=== PATIENT | female | born 1935 | race Caucasian/White ===

== ENCOUNTER → 2016-12-21 | Outpatient (REF) | payer OTHER ==
[~2016-12-21] MED LIST: /ADVA50050 INH; ACET65TA OR; BISO10TA2 PO; ESTR3TA PO; FLAG500T OR; FLORAGEN PO; HYDR10TA3 OR; HYDR25TA6 PO; PHEN 25 PO; POTA10CA2 PO; SING10TA31 PO; clobetasol TOP; vagifem
== END ==
LOC: M LAB REF 16:54
PROVIDERS: ATTEND Nurse Practitioner Family
DX: R20.2 Paresthesia of skin (principal); D51.9 Vitamin B12 deficiency anemia, unspecified

== ENCOUNTER → 2017-02-28 | Outpatient (REF) | payer OTHER | LOC: M LAB REF 16:48 | PROVIDERS: ATTEND Nurse Practitioner Family | DX: D51.9 Vitamin B12 deficiency anemia, unspecified (principal) ==

== ENCOUNTER → 2017-04-17 | Outpatient (REF) | payer OTHER | LOC: M LAB REF 16:51 | PROVIDERS: ATTEND Nurse Practitioner Family | DX: B35.8 Other dermatophytoses (principal) ==

== ENCOUNTER → 2018-03-07 | Outpatient (REF) | payer OTHER ==
[2018-03-07 13:18] LABS: VITAMIN B12 LEVEL 497 PG/ML (247-911)
== END ==
LOC: M LAB REF 12:06
DX: D51.9 Vitamin B12 deficiency anemia, unspecified (principal)
CPT/HCPCS: 82607

== ENCOUNTER → 2019-06-21 | Outpatient (REF) | payer OTHER ==
[~2019-06-21] MED LIST changes: -/ADVA50050 INH; +ADVA1AER2 INH
== END ==
LOC: M LAB REF 16:56
PROVIDERS: ATTEND Internal Medicine
DX: R26.81 Unsteadiness on feet (principal)

== ENCOUNTER → 2019-10-08 | Outpatient (CLI) | payer MEDICARE | LOC: M SLEEP 19:34 | PROVIDERS: ATTEND Nurse Practitioner Adult Health | DX: G47.30 Sleep apnea, unspecified (principal) ==

== ENCOUNTER → 2019-10-24 | Outpatient (CLI) | payer MEDICARE ==
[~2019-10-24] MED LIST changes: +ISOVUE-370 76% 100ML VIAL (Q9967) As Ordered ONE
--- NOTE | 2019-10-24 08:57 | REP ---
Clinical: Cough and shortness of breath. Technique: Axial contrast enhanced images from the thoracic inlet to the upper abdomen with coronal and sagittal re-formations. 75 ml Isovue 370 intravenous contrast material administered without complication. Findings: The lung dumas are well-aerated and demonstrate age-related interstitial changes along with minimal scattered scarring and mild bronchiectasis. No consolidation or significant nodule. No effusion. No pneumothorax. Evaluation of the mediastinum demonstrates small but mildly prominent pericardial fluid. No cardiomegaly. Atherosclerotic changes to the thoracic aorta and coronary arteries noted without aortic aneurysm or dissection. No significant adenopathy. Musculoskeletal structures demonstrate age-related changes. Limited upper abdomen demonstrates normal bilateral adrenal glands and simple-appearing renal cysts. Impression: 1. The lung dumas demonstrate mild chronic age-related changes and minimal scarring which remains essentially stable when compared to abdominal CT dated 2011. 2. Small though mildly prominent pericardial fluid may warrant further investigation. Electronically Signed by Vega Sandoval MD 10/24/2019 08:49 A
== END ==
LOC: M RAD 08:02
PROVIDERS: ATTEND Internal Medicine
DX: R05 Cough (principal); R06.02 Shortness of breath
CPT/HCPCS: 71260; Q9967

== ENCOUNTER 2019-11-05 07:14 | Emergency (ER) | payer MEDICARE ==
[~2019-11-05] VITALS: Ht 157.5 cm; Wt 75.0 kg
[~2019-11-05 07:14] MED LIST changes: -ISOVUE-370 76% 100ML VIAL (Q9967) As Ordered ONE
[2019-11-05] MEDS ORDERED: ARNU1INH3 (07:35)
[2019-11-05] MEDS ORDERED: BREO1INH3 (07:35)
[2019-11-05] MEDS ORDERED: PRAV20TA2 PO (07:35)
[2019-11-05] MEDS ORDERED: POTA10CA32 (07:35)
[2019-11-05] MEDS ORDERED: MESA400C2 (07:35)
[2019-11-05] MEDS ORDERED: PANT40TA3 (07:35)
[2019-11-05] MEDS ORDERED: PRED10TA2 (07:35)
[2019-11-05] MEDS ORDERED: LEVOTAB10 (07:35)
[2019-11-05] MEDS ORDERED: ALBU8.5H (07:35)
[2019-11-05] MEDS ORDERED: FURO20TA2 (07:35)
[2019-11-05] MEDS ORDERED: VALS40TA9 PO (07:35)
[2019-11-05 07:39] VITALS: BP 167/74
[2019-11-05] MEDS: METOPROLOL 5 MG/5 ML VIAL IV SCH ×3 (07:45→07:55)
[2019-11-05] MEDS ORDERED: METOPROLOL TART 25 MG TABLET PO ONE (08:00)
[2019-11-05 08:02] LABS: BASO % 0.1 % (0.0-1.0); EOS % 0.1 % (0.0-3.0); HEMATOCRIT 34.5 % (36.0-47.0); HEMOGLOBIN 11.2 g/dl (12.0-15.5); LYMPH % 13.4 % (24.0-44.0); MEAN CORPUSCULAR HEMOGLOBIN 28.9 pg (27.0-33.0); MEAN CORPUSCULAR HGB CONC 32.5 g/dl (32.0-36.5); MEAN CORPUSCULAR VOLUME 89.1 fl (80.0-96.0); MONO # 0.5 10^3/uL (0.0-0.8); MONO % 6.9 % (0.0-5.0); NEUTROPHILS # 5.8 10^3/uL (1.5-8.5); NEUTROPHILS % 78.4 % (36.0-66.0); PLATELET COUNT, AUTOMATED 228 10^3/uL (150-450); RED BLOOD COUNT 3.87 10^6/uL (4.00-5.40); WHITE BLOOD COUNT 7.4 10^3/uL (4.0-10.0)
[2019-11-05 08:15] LABS: PROTHROMBIN TIME 12.9 SECONDS (11.8-14.0)
[2019-11-05 08:16] LABS: PARTIAL THROMBOPLASTIN TIME 29.5 SECONDS (25.0-38.4)
[2019-11-05 08:18] LABS: BLOOD UREA NITROGEN 20 MG/DL (7-18); CALCIUM LEVEL 8.4 MG/DL (8.8-10.2); CARBON DIOXIDE LEVEL 27 MEQ/L (21-32); CHLORIDE LEVEL 113 MEQ/L (98-107); CK-MB VALUE MASS 1.9 NG/ML (<3.6); CPK CREATINE PHOSPHOKINASE 77 U/L (26-192); GLOMERULAR FILTRATION RATE > 60.0 (>32); GLUCOSE, FASTING 116 MG/DL (70-100); MB/CK RELATIVE INDEX 2.47 (< OR =4); POTASSIUM SERUM 3.5 MEQ/L (3.5-5.1); SODIUM LEVEL 145 MEQ/L (136-145); TROPONIN I < 0.02 NG/ML (< 0.10)
--- NOTE | 2019-11-05 08:25 | REP ---
Portable chest x-ray: Single view. History: Chest pain. Comparison study: August 04, 2012. Findings: EKG monitoring electrodes overlie the chest. There is a dextroconvex curvature in the thoracic spine unchanged. The heart is mildly enlarged. Pulmonary vasculature is not increased. There is no evidence of pulmonary edema or pleural effusion. There is an old healed rib fracture on the right. Impression: Cardiomegaly. Otherwise no acute disease. Electronically Signed by Marlon Ronquillo MD 11/05/2019 08:16 A
[2019-11-05 09:09] LABS: CK-MB VALUE MASS 2.2 NG/ML (<3.6); MB/CK RELATIVE INDEX 3.01 (< OR =4); TROPONIN I 0.09 NG/ML (< 0.10)
[2019-11-05 11:41] LABS: CK-MB VALUE MASS 2.5 NG/ML (<3.6); MB/CK RELATIVE INDEX 2.94 (< OR =4); TROPONIN I 0.14 NG/ML (< 0.10)
[2019-11-05] MEDS ORDERED: SPIR-10 PO (12:11)
[2019-11-05] MEDS ORDERED: ELIQ5TAB PO (12:11)
[2019-11-05] MEDS ORDERED: DIGO0.253 PO (12:11)
[2019-11-05 12:19] VITALS: BP 148/65
--- NOTE | 2019-11-06 07:53 | ECGEPIP ---
[facility] - ED Test Date: 2019-11-05 Pat Name: HANY PURI Department: Room: - Gender: Female Facing Baster Jumpbasting: darling : 1935 Requested By: Balaji De La O Order Number: [id number] Reading MD: Balaji Cervantes Measurements Intervals [place] Rate: 111 P: [place]: 0 QRS: 13 QRSD: 79 T: 58 QT: 286 QTc: 389 Interpretive Statements ATRIAL FIBRILLATION/FLUTTER WITH RAPID VENTRICULAR RESPONSE MODERATE ST DEPRESSION NO PRIORS FOR COMPARISON Electronically Signed on 11-06-2019 7:52:37 EST by Balaji Cervantes
--- NOTE | 2019-11-06 07:53 | ECGEPIP ---
[facility] - ED Test Date: 2019-11-05 Pat Name: HANY PURI Department: Room: - Gender: Female Weed Cutter: darling : 1935 Requested By: Balaji De La O Order Number: [id number] Reading MD: Balaji Cervantes Measurements Intervals [place] Rate: 65 P: 30 VT: 137 QRS: -9 QRSD: 78 T: 61 QT: 372 QTc: 387 Interpretive Statements SINUS RHYTHM POSSIBLE LEFT ATRIAL ENLARGEMENT RHYTHM/RATE CHANGE COMPARED TO PRIOR ON SAME DATE Electronically Signed on 11-06-2019 7:53:09 EST by Balaji Cervantes
--- NOTE | 2019-11-06 07:55 | ECGEPIP ---
[facility] - ED Test Date: 2019-11-05 Pat Name: HANY PURI Department: Room: - Gender: Female Robotics Specialist: ROBERTA : 1935 Requested By: Balaji De La O Order Number: [id number] Reading MD: Balaji Cervantes Measurements Intervals [place] Rate: 50 P: 41 ME: 140 QRS: -4 QRSD: 85 T: 76 QT: 419 QTc: 384 Interpretive Statements SINUS BRADYCARDIA POSSIBLE LEFT ATRIAL ENLARGEMENT NONSPECIFIC T-WAVE ABNORMALITY SIMILAR TO PRIOR ON SAME DATE Electronically Signed on 11-06-2019 7:55:19 EST by Balaji Cervantes
== END 2019-11-05 12:29 | disposition home or self-care (01) ==
LOC: EDBD 07:14 → M ED 07:14
DX: I48.91 Unspecified atrial fibrillation (principal); I10 Essential (primary) hypertension; J45.909 Unspecified asthma, uncomplicated; E78.5 Hyperlipidemia, unspecified; Z79.899 Other long term (current) drug therapy; Z79.01 Long term (current) use of anticoagulants

== ENCOUNTER → 2019-11-11 | Outpatient (REF) | payer MEDICARE ==
[~2019-11-11] MED LIST changes: +ALBU8.5H; +ARNU1INH3; +BREO1INH3; +DIGO0.253 PO; +ELIQ5TAB PO; +FURO20TA2; +LEVOTAB10; +MESA400C2; +PANT40TA3; +POTA10CA32; +PRAV20TA2 PO; +PRED10TA2; +SPIR-10 PO; +VALS40TA9 PO
== END ==
LOC: M LAB REF 16:18
PROVIDERS: ATTEND Internal Medicine
DX: I50.30 Unspecified diastolic (congestive) heart failure (principal)

== ENCOUNTER → 2019-11-19 | Outpatient (CLI) | payer MEDICARE | LOC: M SLEEP 19:43 | PROVIDERS: ATTEND Nurse Practitioner Adult Health | DX: G47.33 Obstructive sleep apnea (adult) (pediatric) (principal) ==

== ENCOUNTER → 2019-12-26 | Outpatient (REF) | payer MEDICARE | LOC: M LAB REF 16:16 | PROVIDERS: ATTEND Internal Medicine | DX: R06.02 Shortness of breath (principal) ==

== ENCOUNTER → 2020-07-15 | Outpatient (REF) | payer MEDICARE ==
[~2020-07-15] MED LIST changes: +PANT40TA29; -PANT40TA3
[2020-07-15 18:54] LABS: DIGOXIN LEVEL 1.3 NG/ML (0.5-2.0); PERCENT SATURATION 15.9 % (13.2-45.0)
== END ==
LOC: M LAB REF 17:11
PROVIDERS: ATTEND Internal Medicine
DX: I48.91 Unspecified atrial fibrillation (principal); D64.9 Anemia, unspecified; Z79.01 Long term (current) use of anticoagulants

== ENCOUNTER → 2020-10-06 | Outpatient (CLI) | payer MEDICARE ==
--- NOTE | 2020-10-06 10:03 | REP ---
INDICATION: EPIGASTRIC PAIN COMPARISON: None. TECHNIQUE: Real time enrique scale ultrasound examination using curved array transducer. FINDINGS: Liver is normal in contour, size, and echogenicity without focal hepatic lesions identified. Pancreas is incompletely evaluated due to interposed bowel gas. The gallbladder is surgically absent. No biliary ductal dilatation is appreciated and the common bile duct measures 6.0 mm diameter. Right kidney is normal in reniform shape without hydronephrosis and measures 10.7 x 4.9 x 3.8 cm with suggestions for partial duplication to the collecting system. No ascites in the visualized right upper quadrant. IMPRESSION: Essentially normal limited right upper quadrant ultrasound. Cannot exclude partial duplication to the renal collecting system. <Electronically signed by Vega Sandoval > 10/06/20 0990
== END ==
LOC: M RAD 09:23
PROVIDERS: ATTEND Internal Medicine Gastroenterology
DX: R10.13 Epigastric pain (principal)

== ENCOUNTER → 2020-10-07 | Outpatient (CLI) | payer MEDICARE | LOC: M LABSMTC 11:06 | PROVIDERS: ATTEND Anesthesiology | DX: Z01.812 Encounter for preprocedural laboratory examination (principal); Z20.822 Contact with and (suspected) exposure to COVID-19 ==

== ENCOUNTER 2020-10-12 07:48 | Day surgery (SDC) | payer MEDICARE ==
[~2020-10-12] VITALS: Ht 160 cm; Wt 64.8 kg
[~2020-10-12 07:48] MED LIST changes: +LIDOCAINE 2% 100MG/5ML SDV (FOR ANES.) As Ordered ONE; +NS 1,000 ML IV ONE; +propofoL 200 MG/20 ML VIAL As Ordered ONE
--- OUTSIDE RECORDS SUMMARY | 2020-10-12 07:52 | CCD | Continuity of Care Document ---
Author Author Hawa BAILEY M.D. Organization Unknown Address [address] [place] [address] Phone [phone] Care Team Providers Care Commercial Leasing Agent Name Role Phone Nirmala Ho DO AUTM [phone] Problems Active Problems Provider Date Abdominal pain Reed Bailey M.D. Onset: 09/24/19 21 Social History Type Date Description Comments Sex Unknown ETOH Use Denies alcohol use Tobacco Use Start: Unknown Patient has never smoked Allergies, Adverse Reactions, Alerts Description No Known Drug Allergies Medications Active Medications SIG Qnty Indications Ordering Provide r Date Digox 125mcg Tablets Unknown Eliquis 5mg Tablets Unknown Spironolactone 25mg Tablets Unknown Furosemide 20mg Tablets Unknown Pravastatin Sodium 20mg Tablets Unknown Losartan Potassium 50mg Tablets Unknown Mesalamine 400mg Capsules DR 2 caps by mouth three times a day Unknown 00 Levothyroxine Sodium 50mcg Capsules Unknown Pantoprazole Sodium 40mg Tablets DR Unknown Sucralfate 1gm Tablets Unknown Vitamin D 50mcg (2000 Ut) Capsules Unknown Immunizations Description No Information Available Vital Signs Date Vital Result Comment 09/24/2020 10:57am Height 63 inches 5'3" Weight 144.00 lb BP Systolic 130 mmHg BP Diastolic 70 mmHg Heart Rate 64 /min BMI (Body Mass Index) 25.5 kg/m2 Weight 65.318 kg Body Temperature 97.0 F Results Description No Information Available Procedures Description No Information Available Medical Devices Description No Information Available Encounters Type Date Location Provider Dx Diagnosis Office Visit 09/24/2020 11:00a Main Office Reed Bailey M.D. R 10.13 Epigastric pain Assessments Date Code Description Provider 09/24/2020 R10.13 Epigastric pain Reed gutierrez M.D. Plan of Treatment Future Appointment(s):* 10/05/2020 6:15 am - Tiffany-Kalyani at Main Office * 10/12/2020 8:45 am - Reed Bailey M.D. at Main Office 09/24/2020 - Reed Bailey M.D.* R10.13 Epigastric pain* New Xrays:* Ultrasound of the Liver, Ordered: 09/24/20 * Comments:* 85 yo wf who presents for a h/o upper abdominal band-like pain. She has had it for 3 months. She denies postprandial relationships. Pain is in the afternoon. Lasts for 2 to 3 hours. Ugi showed doudenal inflammation. She feels current treatment has improved her symptoms by 30%. No weight loss. Gallbladder out in 1997.Plan:1. Egd + liver us to r/o cbd dilatation.2. Maintain meds.3. Liver us to r/o cbd stones.4. Need recent labs from Primary. Functional Status Description No Information Available Mental Status Description No Information Available Referrals Description No Information Available
--- OUTSIDE RECORDS SUMMARY | 2020-10-12 07:52 | CCD | Continuity of Care Document ---
Author Author Hawa BAILEY M.D. Organization Unknown Address [address] [place] [address] Phone [phone] Care Team Providers Care Vending Machine Refiller Name Role Phone Nirmala Ho DO AUTM [phone] Problems Active Problems Provider Date Abdominal pain [...] Medical Devices Description No Information Available Encounters Description No Information Available Assessments Date Code Description Provider 09/24/2020 R10.13 Epigastric pain Reed gutierrez M.D. Plan of Treatment Future Appointment(s):* 10/12/2020 8:45 am - Reed Bailey M.D. [...]
--- OUTSIDE RECORDS SUMMARY | 2020-10-12 07:53 | CCD | Continuity of Care Document ---
Author Author Hawa SADLER Organization Unknown Address [address] [address] Phone [phone] Care Team Providers Care Senior Maintenance Machinist Name Role Phone Nirmala Sadler Unavailable Problems Active Problems Provider Date Essential hypertension Amanda Ba D.O. Onset: Asthma without status asthmaticus Phu Richard MD Onse t: 07/11/2012 Anemia Amanda Ba D.O. Onset: 2011 Menopausal and postmenopausal disorders Amanda Ba D.O. Onset: 07/11/2012 Pure hypercholesterolemia Amanda Ba D.O. Onset: 07/11/2012 Social History Type Date Description Comments Sex Unknown ETOH Use Denies alcohol use Tobacco Use Start: Unknown End: Unknown Patient is a former smoker SMOKED FOR 40 YRS 1 PACK A DAY Allergies, Adverse Reactions, Alerts Description No Known Drug Allergies Medications Active Medications SIG Qnty Indications Ordering Provide r Date Carafate 1gm Tablets one tablet daily before meals for 8 weeks 180tabs Nirmala Sadler DO 020 Melatonin 10mg Tablets 1 every night at bedtime as needed 30tabs Nirmala Sadler DO 07/15/2020 3 Day Vaginal 2% Cream use as needed once to twice a week. 21gm Nirmala Sadler DO 07/15/2020 Furosemide 20mg Tablets 1 by mouth every day 90tabs Nirmala SadlerDO 02/11/2020 Losartan Potassium 50mg Tablets 1 by mouth every day 90tabs Nirmala SadlerDO 12/02/2019 Digoxin 125mcg Tablets 1 by mouth every day 90tabs Nirmala Sadler,DO 11/12/2019 Breo Ellipta 200-25mcg/Inh Aerosol one inhalation daily 28units Nirmala Sadler DO 10/29/2019 Pantoprazole Sodium 40mg Tablets D R 1 by mouth by mouth twice a day 60tabs Nirmala Sadler DO 10/15 Levocetirizine Dihydrochloride 5mg Tablets take one tablet by mouthonce a day in am 90tabs Nirmala Sadler DO 10/01/[address] Take One Capsule By Mouth Every Day 180capstar Richard MD 03/18/2019 Shingrix 50mcg/0.5ML Suspension Re c administer 0.5 milliliters intramuscular, [facility] 2 [facility] DO 03/18/2019 Vitamin D-400 400Unit Tablets 1 by mouth every day FATOU Vogt 08/31/2017 Clotrimazole Anti-Fungal 1% Cream apply twice daily to navel 14.170gm B35.8 FATOU Vogt 7 Ventolin HFA 108(90Base) mcg/Act A erosol 2 puffs four times a day as needed 1units Nirmala Sadler DO 10/20/2015 Pravastatin Sodium 20mg Tablets take one tablet by mouth every day 90tabs Nirmala Sadler DO 2011 Eliquis 5mg Tablets take one tablet by mouth twice a day 180tabs Nirmala Sadler DO Spironolactone 25mg Tablets 1 by mouth every day 90tabs Nirmala Sadler DO History Medications Vagifem 10mcg Tablets insert vaginal 2 times weekly 24tabs Nirmala Sadler DO 07/15/2020 - 12/2019 Medications Administered in Office Medication SIG Qnty Indications Ordering Provider Date Administration Of Flu Vaccine Inj traciion Nirmala Sadler DO 05/29/2020 Administration Of Flu Vaccine Inj traciion Nirmala Sadler DO 06/21/2019 Depo-Medrol Injection Injection FATOU Vogt 07/26/2017 Administration Of Flu Vaccine Inj ection ALBERTO VogtP 07/26/2017 Depo-Medrol Injection Injection Amanda Ba D.O. 06/28/2016 Administration Of Flu Vaccine Inj ection Jennifer Nelson.O. 06/28 Administration Of Flu Vaccine Inj ection Jennifer Nelson.O. 07/21 Administration Of Flu Vaccine Inj ection Aura Rogers, [facility] 06/12/2014 Depo-Medrol Injection Injection Jennifer Nelson.O. 05/05/2014 Administration Of Flu Vaccine Inj ection Jennifer Nelson.O. 07/11 Administration Of Flu Vaccine Inj ection Aura Rogers, ANP 05/31/2011 Administration Of Flu Vaccine Inj ection Aura Rogers, ANP 06/17/2010 Administration Of Flu Vaccine Inj ection Jennifer Nelson.O. 06/17 Administration Of Flu Vaccine Inj ection Aura Rogers, ANP 06/10/2008 Administration Of Flu Vaccine Inj ection Jennifer Nelson.O. 07/12 Administration Of Flu Vaccine Inj ection Jennifer Nelson.O. 06/15 Administration Of Flu Vaccine Inj ection Jennifer Nelson.O. 06/28 Administration Of Flu Vaccine Inj ection Jennifer Nelson.O. 07/07 Administration Of Flu Vaccine Inj ection Jennifer Nelson.O. 07/16 Depo-Medrol Injection Injection Jennifer Nelson.O. 06/16/2003 Depo-Medrol Injection Injection Jennifer Nelson.O. 03/21/2003 Administration Of Flu Vaccine Inj ectJennifer Pino.O. 07/05 Administration Of Flu Vaccine Inj ection Phu Richard MD 08/23/2001 Administration Of Flu Vaccine Inj ection Jennifer Nelson.O. 09/06 Immunizations CPT Code Status Date Vaccine Lot # 99229 Given 05/29/2020 Influenza Vaccin e Quadrivalent Preser/Antibiotic Free Im Use [id number] 89735 Given 07/04/2019 Shingrix Zoster Vaccine (HZV), Recombinant, Subunit, Adjuvanted 34471 Given 06/21/2019 Influenza Vaccin e Quadrivalent Preser/Antibiotic Free Im Use [id number] 61239 Given 03/27/2019 Shingrix U-Flu Given 07/04/2018 Influenza,Unspecified 99200 Given 07/26/2017 Influenza Vaccin e Quadrivalent Preser/Antibiotic Free Im Use 315190 79027 Given 02/28/2017 Tetanus/Diptheria(Td)Toxoids Preservative Free [id number] U-PneuC Given 06/28/2016 Prevnar 13 Q2037 Given 06/28/2016 Fluvirin Virus Vaccine 82796 01 Q2037 Given 07/21/2015 Fluvirin Virus Vaccine 06734 01 Q2037 Given 06/12/2014 Fluvirin Virus Vaccine Q2037 Given 07/11/2012 Fluvirin Virus Vaccine 59711 01 Q2037 Given 05/31/2011 Fluvirin Virus Vaccine 55283 Given 06/17/2010 Influenza Virus Vaccine 00999 Given 06/17/2009 Influenza Virus Vaccine 56640 Given 06/10/2008 Influenza Virus Vaccine 53043 Given 07/12/2007 Influenza Virus Vaccine 87323 Given 01/09/2007 Pneumovax 23 07040 Given 06/15/2006 Influenza Virus Vaccine 41739 Given 06/28/2005 Influenza Virus Vaccine 86578 Given 07/07/2004 Influenza Virus Vaccine 39416 Given 07/16/2003 Influenza Virus Vaccine 11734 Given 07/05/2002 Influenza Virus Vaccine 21010 Given 08/23/2001 Influenza Virus Vaccine 30793 Given 09/06/2000 Influenza Virus Vaccine 45536 Refused 03/07/2018 Zoster Vaccine Vital Signs Date Vital Result Comment 07/15/2020 10:43am BP Systolic 114 mmHg BP Diastolic 54 mmHg Heart Rate 72 /min Height 62.5 inches 5'2.50" Weight 147.12 lb O2 % BldC Oximetry 96 % RM Air BMI (Body Mass Index) 26.5 kg/m2 02/11/2020 2:40pm BP Systolic 108 mmHg BP Diastolic 56 mmHg Heart Rate 80 /min Height 62.5 inches 5'2.50" Weight 157.00 lb O2 % BldC Oximetry 94 % RM Air BMI (Body Mass Index) 28.3 kg/m2 Results Test Acquired Date Facility Test Result H/L Range Note Laboratory test finding 07/15/2020 [facility] [address] [place], [place] [id number] [phone] Digoxin Level 1.3 NG/ML Normal 0.5-2.0 Total Iron Binding Capacit 07/15/[address] [address] [phone] Iron (Fe) 54 g/dL Normal 50-170 Total Iron Binding Capacity 340 g/dL Normal 250-450 Percent Saturation 15.9 % Normal 13.2-45.0 Laboratory test finding 07/15/2020 [facility] [address] [place] [address] [phone] Ferritin 86 NG/ML Normal 8-252 Complete Blood Count 07/15/2020 [facility] [employer] ilir graves Shaper Machine Hand: [place] [address] [phone] WBC 8.0 x10*3/UL 4.1 - 10.9 RBC 4.51 x10*6/UL 4.20 - 6.30 Hemoglobin 12.6 g/dL 12.0 - 18.0 Hematocrit 37.3 % 37.0 - 51.0 MCV 82.8 fL 80.0 - 97.0 MCH 27.9 pg 26.0 - 32.0 MCHC 33.8 g/dL 31.0 - 38.0 RDW 13.7 % 11.6 - 13.7 PLT 145 x10*3/UL 140 - 440 MPV 9.4 FL 7.8 - 11.0 Lymph % 16.0 % 10.0 - 58.5 Mid % 4.0 % 1.7 - 9.3 Neut % 80.0 % 37.0 - 92.0 Lymph # 1.2 x10*3/UL 0.6 - 4.1 Mid # 0.4 x10*3/UL 0.1 - 0.6 Neut # 6.4 x10*3/UL 2.0 - 7.8 Comprehensive Chem Profile 07/15/2020 [facility] [employer] [employer] Shaper Machine Hand: [place] [address] [phone] Glucose 108 mg/dL High 74 - 99 1 BUN 14 mg/dL 7 - 18 Creatinine 0.9 mg/dL 0.6 - 1.3 Sodium 142 mEq/L 136 - 145 Potassium 3.8 mEq/L 3.5 - 5.1 Chloride 103 mEq/L 98 - 107 Carbon Dioxide 30 mEq/L 21 - 32 Calcium 9.1 mg/dL 8.5 - 10.1 Alk. Phosphatase 90 mg/dL 46 - 116 Total Bilirubin 0.7 mg/dL 0.2 - 1.0 Ast (Sgot) 13 U/L Low 15 - 37 Alt (SGPT) 13 U/L 12 - 78 Albumin 3.7 g/dL 3.4 - 5.0 Total Protein 8.0 g/dL 6.4 - 8.2 A/G Ratio 0.86 CALC Low 1.00 - 1.90 GFR 59 mL/min Low >60 GFR >= 60 mL/min >60 2 Lipid Profile 07/15/2020 [facility] Shaper Machine Hand: Dr Phu [place] [id number] [phone] Cholesterol 219 mg/dL High 131 - 200 Triglycerides 150 mg/dL 30 - 150 HDL Cholesterol 48 mg/dL 35 - 60 LDL (Calculated) 141 CALC 50 - 159 Laboratory test finding 07/15/2020 [facility] [employer], Shaper Machine Hand: [place] [address] [phone] Thyroid Stimulating Hormone 3.87 uIU/mL High 0.3 6 - 3.74 Laboratory test finding 07/15/2020 [facility] [employer] isnaty, Shaper Machine Hand: Dr [place] [address] [phone] T4 Free 0.95 ng/dL 0.76 - 1.46 Basic Metabolic Panel 02/11/2020 [facility] Shaper Machine Hand: Dr [place] [address] [phone] Glucose 137 mg/dL High 74 - 99 3 BUN 12 mg/dL 7 - 18 Creatinine 1.1 mg/dL 0.6 - 1.3 Sodium 143 mEq/L 136 - 145 Potassium 3.5 mEq/L 3.5 - 5.1 Chloride 105 mEq/L 98 - 107 Carbon Dioxide 29 mEq/L 21 - 32 Calcium 8.1 mg/dL Low 8.5 - 10.1 GFR 47 mL/min Low >60 GFR 57 mL/min Low >60 4 1 100-125 mg/dL PRE-DIABET ES/FASTING >126 mg/dL DIABETES/FASTING 2 CHRONIC KIDNEY DISEASE STAGI NG PER NKF STAGE I & II GFR >= 60 NORMAL TO MILDLY DECREASED STAGE III GFR 30-59 MODERATELY DECREASED STAGE IV GFR 15-29 SEVERELY DECREASED STAGE V GFR <15 VERY LITTLE GFR LEFT ESRD GFR <15 ON SENIOR PACKAGING ENGINEER 3 100-125 mg/dL PRE-DIABET ES/FASTING >126 mg/dL DIABETES/FASTING 4 CHRONIC KIDNEY DISEASE STAGI NG PER NKF STAGE I & II GFR >= 60 NORMAL TO MILDLY DECREASED STAGE III GFR 30-59 MODERATELY DECREASED STAGE IV GFR 15-29 SEVERELY DECREASED STAGE V GFR <15 VERY LITTLE GFR LEFT ESRD GFR <15 ON SENIOR PACKAGING ENGINEER Procedures Date Code Description Status 03/08/2016 [id number] Bone Mineral Density Test Comple rama 03/08/2016 [id number] Mammogram Completed 02/25/2015 [id number] Mammogram Completed 10/30/2013 [id number] Mammogram Completed 08/23/2012 [id number] Colonoscopy Completed 08/01/2012 [id number] Mammogram Completed 05/25/2011 [id number] Diabetic Retinal Eye Exam Comple rama 12/01/2010 [id number] Bone Mineral Density Test Comple rama 07/12/2007 [id number] Bone Mineral Density Test Comple rama 09/15/2004 [id number] Colonoscopy Completed Medical Devices Description No Information Available Encounters Type Date Location Provider Dx Diagnosis Office Visit 02/11/2020 2:45p [facility] Nirmala Sadler DO J45.40 Moderate persistent asthma, uncomplicated I48.91 Unspecified atrial fibrillat ion G47.33 Obstructive sleep apnea (tasha lt) (pediatric) E78.5 Hyperlipidemia, unspecified J30.9 Allergic rhinitis, unspecifi ed I50.32 Chronic diastolic (congestiv e) heart failure Assessments Date Code Description Provider 07/15/2020 R10.13 Epigastric pain Nirmala Sadler DO 07/15/2020 I48.91 Unspecified atrial fibrillation Nirmala Sadler DO 07/15/2020 J45.40 Moderate persistent asthma, unco mplicated Nirmala Sadler DO 07/15/2020 G47.33 Obstructive sleep apnea (adult) (pediatric) Nirmala Sadler DO 07/15/2020 I50.32 Chronic diastolic (congestive) h eart failure Nirmala Sadler DO 07/15/2020 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 Nirmala Sadler, 07/15/2020 K21.9 Gastro-esophageal reflux disease without esophagitis Nirmala Sadler DO 05/29/2020 Z23 Encounter for immunization Nirmala Sadler,DO 05/29/2020 Z23 Encounter for immunization Nurse Schedule 02/11/2020 J45.40 Moderate persistent asthma, unco mplicated Nirmala Sadler,DO 02/11/2020 I48.91 Unspecified atrial fibrillation Nirmala Sadler,DO 02/11/2020 G47.33 Obstructive sleep apnea (adult) (pediatric) Nirmala Sadler,DO 02/11/2020 E78.5 Hyperlipidemia, unspecified Jerry Sadler,DO 02/11/2020 J30.9 Allergic rhinitis, unspecified L harrison Sadler,DO 02/11/2020 I50.32 Chronic diastolic (congestive) h eart failure Nirmala Sadler DO Plan of Treatment Future Appointment(s):* 09/01/2020 2:45 pm - Nirmala Sadler DO at [facility] 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 * Vagifem 10 mcg - insert vaginal 2 times weekly Functional Status Description No Information Available Mental Status Description No Information Available Referrals Description No Information Available
--- OUTSIDE RECORDS SUMMARY | 2020-10-12 07:53 | CCD | Continuity of Care Document ---
Author Author Hawa SADLER Organization Unknown Address [address] [address] Phone [phone] Care Team Providers Care Burial Vault Deliverer And Installer Name Role Phone Nirmala Sadler Unavailable Problems [...] [facility], [facility] Nirmala Sadler DO 03/18/2019 Vitamin D-400 [...] Of Flu Vaccine Inj ection Aura Rogers, [facility] 06/12/2014 Depo-Medrol Injection Injection Jennifer [...] CPT Code Status Date Vaccine Lot # 61107 Given 05/29/2020 Influenza Vaccin e Quadrivalent Preser/Antibiotic Free Im Use [id number] 74318 Given 07/04/2019 Shingrix Zoster Vaccine (HZV), Recombinant, Subunit, Adjuvanted 18580 Given 06/21/2019 Influenza Vaccin e Quadrivalent Preser/Antibiotic Free Im Use 101060 92366 Given 03/27/2019 Shingrix U-Flu Given 07/04/2018 Influenza,Unspecified 85379 Given 07/26/2017 Influenza Vaccin e Quadrivalent Preser/Antibiotic Free Im Use [id number] 52127 Given 02/28/2017 Tetanus/Diptheria(Td)Toxoids Preservative Free a097a U-PneuC Given 06/28/2016 Prevnar 13 Q2037 Given 06/28/2016 Fluvirin Virus Vaccine 14505 01 Q2037 Given 07/21/2015 Fluvirin Virus Vaccine 28108 01 Q2037 Given 06/12/2014 Fluvirin Virus Vaccine Q2037 Given 07/11/2012 Fluvirin Virus Vaccine 15201 01 Q2037 Given 05/31/2011 Fluvirin Virus Vaccine 24032 Given 06/17/2010 Influenza Virus Vaccine 00380 Given 06/17/2009 Influenza Virus Vaccine 65366 Given 06/10/2008 Influenza Virus Vaccine 72195 Given 07/12/2007 Influenza Virus Vaccine 74392 Given 01/09/2007 Pneumovax 23 37157 Given 06/15/2006 Influenza Virus Vaccine 73641 Given 06/28/2005 Influenza Virus Vaccine 34765 Given 07/07/2004 Influenza Virus Vaccine 83091 Given 07/16/2003 Influenza Virus Vaccine 47979 Given 07/05/2002 Influenza Virus Vaccine 97236 Given 08/23/2001 Influenza Virus Vaccine 03570 Given 09/06/2000 Influenza Virus Vaccine 62877 Refused 03/07/2018 Zoster Vaccine Vital Signs Date [...] H/L Range Note Laboratory test finding 07/15/2020 [facility] [address] [place], [place] [id number] [phone] Digoxin Level <pending> Laboratory test finding 07/15/2020 [facility] [address] [place], [place] [address] [phone] Ferritin <pending> Laboratory test finding 07/15/2020 [facility] Airport Operations Specialist: [place] [address] [phone] TSH <pending> Basic Metabolic Panel 02/11/2020 [facility] Airport Operations Specialist: [place] [address] [phone] Glucose 137 mg/dL High 74 - 99 1 BUN 12 mg/dL 7 - 18 Creatinine 1.1 mg/dL 0.6 - 1.3 Sodium 143 mEq/L 136 - 145 Potassium 3.5 mEq/L 3.5 - 5.1 Chloride 105 mEq/L 98 - 107 Carbon Dioxide 29 mEq/L 21 - 32 Calcium 8.1 mg/dL Low 8.5 - 10.1 GFR 47 mL/min Low >60 GFR 57 mL/min Low >60 2 1 100-125 mg/dL PRE-DIABET ES/FASTING >126 mg/dL DIABETES/FASTING 2 CHRONIC KIDNEY DISEASE STAGI NG PER NKF STAGE I & II GFR >= 60 NORMAL TO MILDLY DECREASED STAGE III GFR 30-59 MODERATELY DECREASED STAGE IV GFR 15-29 SEVERELY DECREASED STAGE V GFR <15 VERY LITTLE GFR LEFT ESRD GFR <15 ON GLASS NOVELTY MAKER Procedures Date Code Description Status 03/08/2016 [id number] Bone Mineral Density Test [facility] 03/08/2016 [id number] Mammogram Completed 02/25/2015 [id number] Mammogram Completed 10/30/2013 [id number] Mammogram Completed 08/23/2012 [id number] Colonoscopy Completed 08/01/2012 [id number] Mammogram Completed 05/25/2011 [id number] Diabetic Retinal Eye Exam [facility] 12/01/2010 [id number] Bone Mineral Density Test [facility] 07/12/2007 [id number] Bone Mineral Density Test [facility] 09/15/2004 [id number] Colonoscopy Completed Medical Devices Description No Information Available Encounters Type Date Location Provider Dx Diagnosis Office Visit 02/11/2020 2:45p [facility] Nirmala Sadler DO J45.40 Moderate persistent asthma, uncomplicated I48.91 Unspecified atrial fibrillat ion G47.33 Obstructive sleep apnea (tasha lt) (pediatric) E78.5 Hyperlipidemia, unspecified J30.9 Allergic rhinitis, unspecifi ed I50.32 Chronic diastolic (congestiv e) heart failure Assessments Date Code Description Provider 05/29/2020 Z23 Encounter for immunization Nirmala Sadler DO 05/29/2020 Z23 Encounter for immunization Nurse Schedule 02/11/2020 J45.40 Moderate persistent asthma, unco mplicated Nirmala Sadler DO 02/11/2020 I48.91 Unspecified atrial fibrillation Nirmala Sadler DO 02/11/2020 G47.33 Obstructive sleep apnea (adult) (pediatric) Nirmala Sadler DO 02/11/2020 E78.5 Hyperlipidemia, unspecified Jerry Sadler DO 02/11/2020 J30.9 Allergic rhinitis, unspecified L harrison Sadler DO 02/11/2020 I50.32 Chronic diastolic (congestive) h eart failure Nirmala Sadler DO Plan of Treatment 07/15/2020 - Nirmala Sadler DO* All * New Medication:* Carafate 1 gm [...]
--- OUTSIDE RECORDS SUMMARY | 2020-10-12 07:53 | CCD | Continuity of Care Document ---
Author Author Hawa SADLER Organization Unknown Address [address] [address] Phone [phone] Care Team Providers Care Aeronautics Teacher Name Role Phone Nirmala Sadler Unavailable Problems [...] SIG Qnty Indications Ordering Provide r Date Montelukast Sodium 10mg Tablets Take One Tablet By Mouth AT Bedtime 90tabs Nirmala Sadler,DO 07/20 Carafate 1gm Tablets one tablet daily before meals for 8 weeks 180tabs Nirmala Sadler,DO 020 Melatonin 10mg Tablets 1 every night at bedtime as needed 30tabs Nirmala Sadler,DO 07/15/2020 3 Day Vaginal 2% Cream use as needed once to twice a week. 21gm Nirmala Sadler,DO 07/15/2020 Furosemide 20mg Tablets 1 by mouth every day 90tabs Nirmala Sadler,DO 02/11/2020 Losartan Potassium 50mg Tablets 1 by mouth every day 90tabs Nirmala Sadler,DO 12/02/2019 Digoxin 125mcg Tablets 1 by mouth every day 90tabs Nirmala Sadler,DO 11/12/2019 Breo Ellipta 200-25mcg/Inh Aerosol one inhalation daily 28units Nirmala Sadler,DO 10/29/2019 Pantoprazole Sodium 40mg Tablets D R 1 by mouth by mouth twice a day 60tabs Nirmala Sadler,DO 10/15 Levocetirizine Dihydrochloride 5mg Tablets take one tablet by mouthonce a day in am 90tabs Nirmala Sadler,DO 10/01/2019 Shingrix 50mcg/0.5ML Suspension Re c administer 0.5 milliliters intramuscular, [facility] DO 03/18/[address] Take One Capsule By Mouth Every Day 180caps Phu Richard MD 03/18/2019 Vitamin D-400 400Unit Tablets 1 by mouth every day FATOU Vogt 08/31/2017 Clotrimazole Anti-Fungal 1% Cream apply twice daily to navel 14.170gm B35.8 Edward Medrano, [facility] 7 Ventolin HFA 108(90Base) mcg/Act A erosol 2 puffs four times a day as needed 1units Nirmala Sadler, 10/20/2015 Pravastatin Sodium 20mg Tablets take one tablet by mouth every day 90tabs Nirmala Sadler,DO 2011 Eliquis 5mg Tablets take one tablet by mouth twice a day 180tabs Nirmala Sadler,DO Spironolactone 25mg Tablets 1 by mouth every day 90tabs Nirmala Sadler,DO History Medications Vagifem 10mcg Tablets insert vaginal 2 times weekly 24tabs Nirmala Sadler DO 07/15/2020 - 12/2019 Medications Administered in Office Medication SIG Qnty Indications Ordering Provider Date Administration Of Flu Vaccine Inj ection Nirmala Sadler, 05/29/2020 Administration Of Flu Vaccine Inj ection Nirmala Sadler DO 06/21/2019 Depo-Medrol Injection Injection ALBERTO VogtP 07/26/2017 Administration Of Flu Vaccine Inj ection FATOU Vogt 07/26/2017 Depo-Medrol Injection Injection Jennifer Nelson.O. 06/28/2016 Administration Of Flu Vaccine Inj ection Jennifer Nelson.O. 06/28 Administration Of Flu Vaccine Inj ection Jennifer Nelson.O. 07/21 Administration Of Flu Vaccine Inj ection Aura Rogers, ANP 06/12/2014 Depo-Medrol Injection Injection Jennifer Nelson.O. 05/05/2014 [...] Nelson.O. 03/21/2003 Administration Of Flu Vaccine Inj ection Jennifer Nelson.O. 07/05 Administration Of Flu Vaccine Inj traciion Phu Richard MD 08/23/2001 Administration Of Flu Vaccine Inj ection Jennifer Nelson.O. 09/06 Immunizations CPT Code Status Date Vaccine Lot # 90303 Given 05/29/2020 Influenza Vaccin e Quadrivalent Preser/Antibiotic Free Im Use [id number] 83199 Given 07/04/2019 Shingrix Zoster Vaccine (HZV), Recombinant, Subunit, Adjuvanted 31910 Given 06/21/2019 Influenza Vaccin e Quadrivalent Preser/Antibiotic Free Im Use [id number] 10803 Given 03/27/2019 Shingrix U-Flu Given 07/04/2018 Influenza,Unspecified 07436 Given 07/26/2017 Influenza Vaccin e Quadrivalent Preser/Antibiotic Free Im Use 502138 70537 Given 02/28/2017 Tetanus/Diptheria(Td)Toxoids Preservative Free a097a U-PneuC Given 06/28/2016 Prevnar 13 Q2037 Given 06/28/2016 Fluvirin Virus Vaccine 70705 01 Q2037 Given 07/21/2015 Fluvirin Virus Vaccine 21795 01 Q2037 Given 06/12/2014 Fluvirin Virus Vaccine Q2037 Given 07/11/2012 Fluvirin Virus Vaccine 31278 01 Q2037 Given 05/31/2011 Fluvirin Virus Vaccine 86121 Given 06/17/2010 Influenza Virus Vaccine 60600 Given 06/17/2009 Influenza Virus Vaccine 66426 Given 06/10/2008 Influenza Virus Vaccine 97953 Given 07/12/2007 Influenza Virus Vaccine 34125 Given 01/09/2007 Pneumovax 23 82726 Given 06/15/2006 Influenza Virus Vaccine 80139 Given 06/28/2005 Influenza Virus Vaccine 42417 Given 07/07/2004 Influenza Virus Vaccine 90865 Given 07/16/2003 Influenza Virus Vaccine 00579 Given 07/05/2002 Influenza Virus Vaccine 76908 Given 08/23/2001 Influenza Virus Vaccine 54790 Given 09/06/2000 Influenza Virus Vaccine 72069 Refused 03/07/2018 Zoster Vaccine Vital Signs Date [...] H/L Range Note Laboratory test finding 07/15/2020 [facility] [address] [place] [address] [phone] Digoxin Level 1.3 NG/ML Normal 0.5-2.0 Total Iron Binding Capacit 07/15/2020 [facility] [address] [place] [address] [phone] Iron (Fe) 54 g/dL Normal 50-170 Total Iron Binding Capacity 340 g/dL Normal 250-450 Percent Saturation 15.9 % Normal 13.2-45.0 Laboratory test finding 07/15/2020 [facility] [address] [place] [address] [phone] Ferritin 86 NG/ML Normal 8-252 Complete Blood Count 07/15/2020 [facility] [employer] ilir graves Dermatology Nurse: [place] [address] [phone] WBC 8.0 x10*3/UL 4.1 - 10.9 RBC [...] 2.0 - 7.8 Comprehensive Chem Profile 07/15/2020 [facility] Mondragon Dermatology Nurse: [place] [address] [phone] Glucose 108 mg/dL High 74 - 99 [...] 60 mL/min >60 2 Lipid Profile 07/15/2020 [facility] Dermatology Nurse: Dr [place] [id number] [phone] Cholesterol 219 mg/dL High 131 - 200 Triglycerides 150 mg/dL 30 - 150 HDL Cholesterol 48 mg/dL 35 - 60 LDL (Calculated) 141 CALC 50 - 159 Laboratory test finding 07/15/2020 [facility] [employer] ilir chaudhry Dermatology Nurse: Dr Phu Moran [facility]18 [phone] Thyroid Stimulating Hormone 3.87 uIU/mL High 0.3 6 - 3.74 Laboratory test finding 07/15/2020 [facility] [employer] ilir chaudhry Dermatology Nurse: Dr Phu Moran [place] [address] [phone] T4 Free 0.95 ng/dL 0.76 - 1.46 Basic Metabolic Panel 02/11/2020 [facility] D[facility]at[facility] Nurse: Dr Phu Moran [facility]28 [phone] Glucose 137 mg/dL High 74 - 99 [...] GFR LEFT ESRD GFR <15 ON SENIOR INFORMATION SECURITY CONSULTANT 3 100-125 mg/dL PRE-DIABET ES/FASTING >126 mg/dL DIABETES/FASTING 4 CHRONIC KIDNEY DISEASE STAGI NG PER NKF STAGE I & II GFR >= 60 NORMAL TO MILDLY DECREASED STAGE III GFR 30-59 MODERATELY DECREASED STAGE IV GFR 15-29 SEVERELY DECREASED STAGE V GFR <15 VERY LITTLE GFR LEFT ESRD GFR <15 ON SENIOR INFORMATION SECURITY CONSULTANT Procedures Date Code Description Status 03/08/2016 [id number] Bone Mineral Density Test [facility] 03/08/2016 [id number] Mammogram Completed 02/25/2015 [id number] Mammogram Completed 10/30/2013 [id number] Mammogram Completed 08/23/2012 [id number] Colonoscopy Completed 08/01/2012 [id number] Mammogram Completed 05/25/2011 [id number] Diabetic Retinal Eye Exam [facility] 12/01/2010 [id number] Bone Mineral Density Test [facility] 07/12/2007 [id number] Bone Mineral Density Test [facility] 09/15/2004 [id number] Colonoscopy Completed Medical Devices Description No Information Available Encounters Type Date Location Provider Dx Diagnosis Office Visit 07/15/2020 11:00a [facility] PJm Sadler DO R10.13 Epigastric pain I48.91 Unspecified atrial fibrillat ion J45.40 Moderate persistent asthma, uncomplicated G47.33 Obstructive sleep apnea (tasha lt) (pediatric) I50.32 Chronic diastolic (congestiv e) heart failure 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 K21.9 Gastro-esophageal reflux dis ease without esophagitis Z13.89 Encounter for screening for other disorder E78.5 Hyperlipidemia, unspecified Office Visit 02/11/2020 2:45p [facility] PJm Sadler DO J45.40 Moderate persistent asthma, uncomplicated I48.91 Unspecified atrial fibrillat ion G47.33 Obstructive sleep apnea (tasha lt) (pediatric) E78.5 Hyperlipidemia, unspecified J30.9 Allergic rhinitis, unspecifi ed I50.32 Chronic diastolic (congestiv e) heart failure Assessments Date Code Description Provider 07/15/2020 R10.13 Epigastric pain Nirmala Sadler,DO 07/15/2020 I48.91 Unspecified atrial fibrillation Nirmala Sadler,DO 07/15/2020 J45.40 Moderate persistent asthma, unco mplicated Nirmala Sadler,DO 07/15/2020 G47.33 Obstructive sleep apnea (adult) (pediatric) Nirmala Sadler,DO 07/15/2020 I50.32 Chronic diastolic (congestive) h eart failure Nirmala Sadler,DO 07/15/2020 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 Nirmala Sadler,DO 07/15/2020 K21.9 Gastro-esophageal reflux disease without esophagitis Nirmala Sadler,DO 07/15/2020 Z13.89 Encounter for screening for othe r disorder Nirmala Sadler,DO 07/15/2020 E78.5 Hyperlipidemia, unspecified Jerry sherrie Sadler,DO 05/29/2020 Z23 Encounter for immunization Nirmala Sadler,DO 05/29/2020 Z23 Encounter for immunization Nurse Schedule 02/11/2020 J45.40 Moderate persistent asthma, unco mplicated Nirmala Sadler,DO 02/11/2020 I48.91 Unspecified atrial fibrillation Nirmala Sadler,DO 02/11/2020 G47.33 Obstructive sleep apnea (adult) (pediatric) Nirmala Sadler,DO 02/11/2020 E78.5 Hyperlipidemia, unspecified Jerry sherrie Sadler,DO 02/11/2020 J30.9 Allergic rhinitis, unspecified L aura [place],DO 02/11/2020 I50.32 Chronic diastolic (congestive) h eart failure Nirmala Sadler DO Plan of Treatment Future Appointment(s):* 09/01/2020 2:45 pm - Nirmala Sadler DO at [facility] 07/15/2020 - Nirmala Sadler DO* R10.13 Epigastric pain* New Xrays:* Ugi With SBFT, Scheduled: 07/24/20 * I48.91 Unspecified atrial fibrillation * J45.40 Moderate persistent asthma, uncomplicated * G47.33 Obstructive sleep apnea (adult) (pediatric) * I50.32 Chronic diastolic (congestive) heart failure * N95.2 Postmenopausal atrophic vaginitis * K21.9 Gastro-esophageal reflux disease without esophagitis * Z13.89 Encounter for screening for other disorder * E78.5 Hyperlipidemia, unspecified * All * New Medication:* Carafate 1 [...]
--- OUTSIDE RECORDS SUMMARY | 2020-10-12 07:53 | CCD | Continuity of Care Document ---
Author Author Hawa SALDER Organization Unknown Address [address] [address] Phone [phone] Care Team Providers Care Temple Marker Name Role Phone Nirmala Sadler Unavailable Problems [...] [facility], [facility] N[facility]ala Sad[facility] DO 03/18/2019 Vitamin D-400 [...] Of Flu Vaccine Inj ection Aura Rogers, [facility] 06/12/2014 Depo-Medrol Injection Injection Jennifer [...] CPT Code Status Date Vaccine Lot # [id number] Given 05/29/2020 Influenza Vaccin e Quadrivalent Preser/Antibiotic Free Im Use 320274 01248 Given 07/04/2019 Shingrix Zoster Vaccine (HZV), Recombinant, Subunit, Adjuvanted 54846 Given 06/21/2019 Influenza Vaccin e Quadrivalent Preser/Antibiotic Free Im Use 115612 78649 Given 03/27/2019 Shingrix U-Flu Given 07/04/2018 Influenza,Unspecified 51608 Given 07/26/2017 Influenza Vaccin e Quadrivalent Preser/Antibiotic Free Im Use 435757 08148 Given 02/28/2017 Tetanus/Diptheria(Td)Toxoids Preservative Free a097a U-PneuC Given 06/28/2016 Prevnar 13 Q2037 Given 06/28/2016 Fluvirin Virus Vaccine 34276 01 Q2037 Given 07/21/2015 Fluvirin Virus Vaccine 73677 01 Q2037 Given 06/12/2014 Fluvirin Virus Vaccine Q2037 Given 07/11/2012 Fluvirin Virus Vaccine 89778 01 Q2037 Given 05/31/2011 Fluvirin Virus Vaccine 56510 Given 06/17/2010 Influenza Virus Vaccine 54413 Given 06/17/2009 Influenza Virus Vaccine 79629 Given 06/10/2008 Influenza Virus Vaccine 83479 Given 07/12/2007 Influenza Virus Vaccine 53291 Given 01/09/2007 Pneumovax 23 76063 Given 06/15/2006 Influenza Virus Vaccine 19026 Given 06/28/2005 Influenza Virus Vaccine 14354 Given 07/07/2004 Influenza Virus Vaccine 34026 Given 07/16/2003 Influenza Virus Vaccine 89394 Given 07/05/2002 Influenza Virus Vaccine 90722 Given 08/23/2001 Influenza Virus Vaccine 77376 Given 09/06/2000 Influenza Virus Vaccine 28434 Refused 03/07/2018 Zoster Vaccine Vital Signs Date [...] H/L Range Note Laboratory test finding 07/15/2020 [facility] [address] [place], [place] [address] [phone] Digoxin Level 1.3 NG/ML Normal 0.5-2.0 Total Iron Binding Capacit 07/15/[address] [address] [phone] Iron (Fe) 54 g/dL Normal 50-170 Total Iron Binding Capacity 340 g/dL Normal 250-450 Percent Saturation 15.9 % Normal 13.2-45.0 Laboratory test finding 07/15/2020 [facility] [address] [place] [address] [phone] Ferritin 86 NG/ML Normal 8-252 Complete Blood Count 07/15/2020 [place] [employer] ilir graves Senior Ssis Developer: [place] [address] [phone] WBC 8.0 x10*3/UL 4.1 - 10.9 RBC [...] 2.0 - 7.8 Comprehensive Chem Profile 07/15/2020 [place] [facility] Mondragon Senior Ssis Developer: [place] [address] [phone] Glucose 108 mg/dL High 74 - 99 [...] 60 mL/min >60 2 Lipid Profile 07/15/2020 [facility] Senior Ssis Developer: Dr Phu Richard [place] [address] [phone] Cholesterol 219 mg/dL High 131 - 200 Triglycerides 150 mg/dL 30 - 150 HDL Cholesterol 48 mg/dL 35 - 60 LDL (Calculated) 141 CALC 50 - 159 Laboratory test finding 07/15/2020 [place] [employer] Deliverer is, Senior Ssis Developer: [place] [address] [phone] Thyroid Stimulating Hormone 3.87 uIU/mL High 0.3 6 - 3.74 Laboratory test finding 07/15/2020 [place] [employer] Deliverer isnaty, Senior Ssis Developer: [place] [address] [phone] T4 Free 0.95 ng/dL 0.76 - 1.46 Basic Metabolic Panel 02/11/2020 [facility] Senior Ssis Developer: [place] [address] [phone] Glucose 137 mg/dL High 74 - 99 [...] LITTLE GFR LEFT ESRD GFR <15 ON TENT FINISHER 3 100-125 mg/dL PRE-DIABET ES/FASTING >126 mg/dL DIABETES/FASTING 4 CHRONIC KIDNEY DISEASE STAGI NG PER NKF STAGE I & II GFR >= 60 NORMAL TO MILDLY DECREASED STAGE III GFR 30-59 MODERATELY DECREASED STAGE IV GFR 15-29 SEVERELY DECREASED STAGE V GFR <15 VERY LITTLE GFR LEFT ESRD GFR <15 ON TENT FINISHER Procedures Date Code Description Status 03/08/2016 [id number] Bone Mineral Density Test [facility] 03/08/2016 [id number] Mammogram Completed 02/25/2015 [id number] Mammogram Completed 10/30/2013 [id number] Mammogram Completed 08/23/2012 [id number] Colonoscopy Completed 08/01/2012 [id number] Mammogram Completed 05/25/2011 [id number] Diabetic Retinal Eye Exam [facility] 12/01/2010 [id number] Bone Mineral Density Test [facility] 07/12/2007 [id number] Bone Mineral Density Test [facility] 09/15/2004 [id number] Colonoscopy Completed Medical Devices Description No Information Available Encounters Type Date Location Provider Dx Diagnosis Office Visit 02/11/2020 2:45p [facility] Nirmala Sadler DO J45.40 Moderate [...] 2:45 pm - Nirmala Sadler DO at [facility] 07/15/2020 - Nirmala Sadler DO* [...]
--- OUTSIDE RECORDS SUMMARY | 2020-10-12 07:54 | CCD ---
Author Author [facility] Organization [facility] Address Unknown Phone Unavailable Care Team Providers Care Trash Collector Truck Driver Name Role Phone [place], Nirmala DO Unavailable Unavailable [place], Nirmala DO Unavailable Unavailable [place], Nirmala DO Unavailable Unavailable [place], Nirmala DO Unavailable Unavailable [place], Nirmala DO Unavailable Unavailable [place], Nirmala DO Unavailable Unavailable [place], Nirmala DO Unavailable Unavailable [place], Nirmala DO Unavailable Unavailable [place], Nirmala DO Unavailable Unavailable [place], Nirmala DO Unavailable Unavailable [place], Nirmala DO Unavailable Unavailable [place], Nirmala DO Unavailable Unavailable [place], Nirmala DO Unavailable Unavailable [place], Nirmala DO Unavailable Unavailable [place], Nirmala DO Unavailable Unavailable [place], Nirmala DO Unavailable Unavailable [place], Nirmala DO Unavailable Unavailable [place], Nirmala DO Unavailable Unavailable [place], Nirmala DO Unavailable Unavailable [place], Nirmala DO Unavailable Unavailable [place], Nirmala DO Unavailable Unavailable [place], Nirmala DO Unavailable Unavailable [place], Nirmala DO Unavailable Unavailable [place], Nirmala DO Unavailable Unavailable [place], Nirmala DO Unavailable Unavailable [place], Nirmala DO Unavailable Unavailable [place], Nirmala DO Unavailable Unavailable [place], Nirmala DO Unavailable Unavailable [place], Nirmala DO Unavailable Unavailable [place], Nirmala DO Unavailable Unavailable [place], Nirmala DO Unavailable Unavailable [place], Nirmala DO Unavailable Unavailable [place], Nirmala DO Unavailable Unavailable [place], Nirmala DO Unavailable Unavailable [place], Nirmala DO Unavailable Unavailable [place], Nirmala DO Unavailable Unavailable [place], Nirmala DO Unavailable Unavailable [place], Nirmala DO Unavailable Unavailable [place], Nirmala DO Unavailable Unavailable [place], Nirmala DO Unavailable Unavailable [place], Nirmala DO Unavailable Unavailable [place], Nirmala DO Unavailable Unavailable [place], Nirmala DO Unavailable Unavailable [place], Nirmala DO Unavailable Unavailable [place], Nirmala DO Unavailable Unavailable [place], Nirmala DO Unavailable Unavailable [place], Nirmala DO Unavailable Unavailable [place], Nirmala DO Unavailable Unavailable [place], Nirmala DO Unavailable Unavailable [place], Nirmala DO Unavailable Unavailable [place], Nirmala DO Unavailable Unavailable [place], Nirmala DO Unavailable Unavailable [place], Nirmala DO Unavailable Unavailable [place], Nirmala DO Unavailable Unavailable [place], Nirmala DO Unavailable Unavailable [place], Nirmala DO Unavailable Unavailable [place], Nirmala DO Unavailable Unavailable [place], Nirmala DO Unavailable Unavailable [place], Nirmala DO Unavailable Unavailable [place], Nirmala DO Unavailable Unavailable [place], Nirmala DO Unavailable Unavailable [place], Nirmala DO Unavailable Unavailable [place], Nirmala DO Unavailable Unavailable [place], Nirmala DO Unavailable Unavailable [place], Nirmala DO Unavailable Unavailable [place], Nirmala DO Unavailable Unavailable [place], Nirmala DO Unavailable Unavailable [place], Nirmala DO Unavailable Unavailable [place], Nirmala DO Unavailable Unavailable [place], Nirmala DO Unavailable Unavailable [place], Nirmala DO Unavailable Unavailable [place], Nirmala DO Unavailable Unavailable Alexus Bailey MD Unavailable Unavailable Alexus Bailey MD Unavailable Unavailable Alexus Bailey MD Unavailable Unavailable Alexus Bailey MD Unavailable Unavailable Alexus Bailey MD Unavailable Unavailable Alexus Bailey MD Unavailable Unavailable Alexus Bailey MD Unavailable Unavailable Alexus Bailey MD Unavailable Unavailable Alexus Bailey MD Unavailable Unavailable Alexus Bailey MD Unavailable Unavailable Alexus Bailey MD Unavailable Unavailable Alexus Bailey MD Unavailable Unavailable Alexus Bailey MD Unavailable Unavailable Alexus Bailey MD Unavailable Unavailable Alexus Bailey MD Unavailable Unavailable LeoAlexus MD Unavailable Unavailable LeoAlexus MD Unavailable Unavailable Leo S Reed MCCANN Unavailable Unavailable LeoAlexus MD Unavailable Unavailable Alexus Bailey MD Unavailable Unavailable Alexus Bailey MD Unavailable Unavailable Alexus Bailey MD Unavailable Unavailable Alexus Bailey MD Unavailable Unavailable Alexus Bailey MD Unavailable Unavailable LeoAlexus MD Unavailable Unavailable LeoAlexus MD Unavailable Unavailable Alexus Bailey MD Unavailable Unavailable Alexus Bailey MD Unavailable Unavailable Alexus Bailey MD Unavailable Unavailable LeoAlexus MD Unavailable Unavailable LeoAlexus MD Unavailable Unavailable Leo, S Reed Unavailable Unavailable Leo, S Reed MD Unavailable Unavailable Leo, S Reed MD Unavailable Unavailable Leo, S Reed MD Unavailable Unavailable Leo, S Reed MD Unavailable Unavailable Leo, S Reed MD Unavailable Unavailable Leo, S Reed MD Unavailable Unavailable Leo, S Reed MD Unavailable Unavailable Leo, S Reed MD Unavailable Unavailable Leo, S Reed MD Unavailable Unavailable Leo, S Reed MD Unavailable Unavailable Leo, S Reed MD Unavailable Unavailable Leo, S Reed MD Unavailable Unavailable Leo, S Reed MD Unavailable Unavailable Leo, S Reed MD Unavailable Unavailable Leo, S Reed MD Unavailable Unavailable Leo, S Reed MD Unavailable Unavailable [place], Nirmala DO Unavailable Unavailable [place], Nirmala DO Unavailable Unavailable [place], Nirmala DO Unavailable Unavailable [place], Nirmala DO Unavailable Unavailable [place], Nirmala DO Unavailable Unavailable [place], Nirmala DO Unavailable Unavailable [place], Nirmala DO Unavailable Unavailable [place], Nirmala DO Unavailable Unavailable [place], Nirmala DO Unavailable Unavailable [place], Nirmala DO Unavailable Unavailable [place], Nirmala DO Unavailable Unavailable [place], Nirmala DO Unavailable Unavailable [place], Nirmala DO Unavailable Unavailable [place], Nirmala DO Unavailable Unavailable [place], Nirmala DO Unavailable Unavailable [place], Nirmala DO Unavailable Unavailable [place], Nirmala DO Unavailable Unavailable [place], Nirmala DO Unavailable Unavailable [place], Nirmala DO Unavailable Unavailable [place], Nirmala DO Unavailable Unavailable [place], Nirmala DO Unavailable Unavailable [place], Nirmala DO Unavailable Unavailable [place], Nirmala DO Unavailable Unavailable [place], Nirmala DO Unavailable Unavailable [place], Nirmala DO Unavailable Unavailable [place], Nirmala DO Unavailable Unavailable [place], Nirmala DO Unavailable Unavailable [place], Nirmala DO Unavailable Unavailable [place], Nirmala DO Unavailable Unavailable [place], Nirmala DO Unavailable Unavailable [place], Nirmala DO Unavailable Unavailable [place], Nirmala DO Unavailable Unavailable [place], Nirmala DO Unavailable Unavailable [place], Nirmala DO Unavailable Unavailable [place], Nirmala DO Unavailable Unavailable [place], Nirmala DO Unavailable Unavailable [place], Nirmala DO Unavailable Unavailable [place], Nirmala DO Unavailable Unavailable [place], Nirmala DO Unavailable Unavailable [place], Nirmala DO Unavailable Unavailable [place], Nirmala DO Unavailable Unavailable Goergia, Nirmala DO Unavailable Unavailable [place], Nirmala DO Unavailable Unavailable [place], Nirmala DO Unavailable Unavailable [place], Nirmala DO Unavailable Unavailable [place], Nirmala DO Unavailable Unavailable [place], Nirmlaa DO Unavailable Unavailable [place], Nirmala DO Unavailable Unavailable [place], Nirmala DO Unavailable Unavailable [place], Nirmala DO Unavailable Unavailable [place], Nirmala DO Unavailable Unavailable [place], Nirmala DO Unavailable Unavailable [place], Nirmala DO Unavailable Unavailable [place], Nirmala DO Unavailable Unavailable [place], Nirmala DO Unavailable Unavailable [place], Nirmala DO Unavailable Unavailable [place], Nirmala DO Unavailable Unavailable [place], Nirmala DO Unavailable Unavailable [place], Nirmala DO Unavailable Unavailable [place], Nirmala DO Unavailable Unavailable [place], Nirmala DO Unavailable Unavailable [place], Nirmala DO Unavailable Unavailable [place], Nirmala DO Unavailable Unavailable [place], Nirmala DO Unavailable Unavailable [place], Nirmala DO Unavailable Unavailable [place], Nirmala DO Unavailable Unavailable [place], Nirmala DO Unavailable Unavailable [place], Nirmala DO Unavailable Unavailable [place], Nirmala DO Unavailable Unavailable [place], Nirmala DO Unavailable Unavailable [place], Nirmala DO Unavailable Unavailable [place], Nirmala DO Unavailable Unavailable [place], Nirmala DO Unavailable Unavailable [place], Nirmala DO Unavailable Unavailable [place], Nirmala DO Unavailable Unavailable [place], Nirmala DO Unavailable Unavailable [place], Nirmala DO Unavailable Unavailable [place], Nirmala DO Unavailable Unavailable [place], Nirmala DO Unavailable Unavailable [place], Nirmala DO Unavailable Unavailable [place], Nirmala DO Unavailable Unavailable [place], Nirmala DO Unavailable Unavailable [place], Nirmala DO Unavailable Unavailable [place], Nirmala DO Unavailable Unavailable [place], Nirmala DO Unavailable Unavailable [place], Nirmala DO Unavailable Unavailable [place], Nirmala DO Unavailable Unavailable [place], Nirmala DO Unavailable Unavailable [place], Nirmala DO Unavailable Unavailable [place], Nirmala DO Unavailable Unavailable [place], Nirmala DO Unavailable Unavailable [place], Nirmala DO Unavailable Unavailable [place], Nirmala DO Unavailable Unavailable [place], Nirmala DO Unavailable Unavailable [place], Nirmala DO Unavailable Unavailable [place], Nirmala DO Unavailable Unavailable [place], Nirmala DO Unavailable Unavailable [place], Nirmala DO Unavailable Unavailable [place], Nirmala DO Unavailable Unavailable [place], Nirmala DO Unavailable Unavailable [place], Nirmala DO Unavailable Unavailable [place], Nirmala DO Unavailable Unavailable [place], Nirmala DO Unavailable Unavailable [place], Nirmala DO Unavailable Unavailable [place], Nirmala DO Unavailable Unavailable [place], Nirmala DO Unavailable Unavailable [place], Nirmala DO Unavailable Unavailable [place], Nirmala DO Unavailable Unavailable [place], Nirmala DO Unavailable Unavailable Georgai, Nirmala DO Unavailable Unavailable [place], Nirmala DO Unavailable Unavailable [place], Nirmala DO Unavailable Unavailable [place], Nirmala DO Unavailable Unavailable [place], Nirmala DO Unavailable Unavailable [place], Nirmala DO Unavailable Unavailable [place], Nirmala DO Unavailable Unavailable [place], Nirmala DO Unavailable Unavailable [place], Nirmala DO Unavailable Unavailable [place], Nirmala DO Unavailable Unavailable [place], Nirmala DO Unavailable Unavailable [place], Nirmala DO Unavailable Unavailable [place], Nirmala DO Unavailable Unavailable [place], Nirmala DO Unavailable Unavailable [place], Nirmala DO Unavailable Unavailable [place], Nirmala DO Unavailable Unavailable [place], Nirmala DO Unavailable Unavailable [place], Nirmala DO Unavailable Unavailable [place], Nirmala DO Unavailable Unavailable [place], Nirmala DO Unavailable Unavailable [place], Nirmala DO Unavailable Unavailable [place], Nirmala DO Unavailable Unavailable [place], Nirmala DO Unavailable Unavailable [place], Nirmala DO Unavailable Unavailable [place], Nirmala DO Unavailable Unavailable [place], Nirmala DO Unavailable Unavailable [place], Nirmala DO Unavailable Unavailable [place], Nirmala DO Unavailable Unavailable [place], Nirmala DO Unavailable Unavailable [place], Nirmala DO Unavailable Unavailable [place], Nirmala DO Unavailable Unavailable [place], Nirmala DO Unavailable Unavailable [place], Nirmala DO Unavailable Unavailable [place], Nirmala DO Unavailable Unavailable [place], Nirmala DO Unavailable Unavailable Re-disclosure Warning The records that you are about to access may contain information from federally-assisted alcohol or drug abuse programs. If such information is present, then the following federally mandated warning applies: This information has been disclosed to you from records protected by federal confidentiality rules (42 CFR part 2). The federal rules prohibit you from making any further disclosure of this information unless further disclosure is expressly permitted by the written consent of the person to whom it pertains or as otherwise permitted by 42 CFR part 2. A general authorization for the release of medical or other information is NOT sufficient for this purpose. The Federal rules restrict any use of the information to criminally investigate or prosecute any alcohol or drug abuse patient.The records that you are about to access may contain highly sensitive health information, the redisclosure of which is protected by Article 27-F of the [facility] Public Health law. If you continue you may have access to information: Regarding HIV / AIDS; Provided by facilities licensed or operated by the [facility] Office of Mental Health; or Provided by the [facility] Office for People With Developmental Disabilities. If such information is present, then the following [facility] mandated warning applies: This information has been disclosed to you from confidential records which are protected by state law. State law prohibits you from making any further disclosure of this information without the specific written consent of the person to whom it pertains, or as otherwise permitted by law. Any unauthorized further disclosure in violation of state law may result in a fine or penitentiary sentence or both. A general authorization for the release of medical or other information is NOT sufficient authorization for further disc losure. Family History Family Member Name Family Member Gender Family Member Status Date o f Status Description Data Source(s) Unknown Male Problem [facility] ([facility]) Encounters Encounter Providers Location Date Indications Data Source(s ) Outpatient Attender: Reed Bailey MD Main Office 09/24/2020 10:00:00 AM EST [facility] ([facility]) Outpatient Attender: Nirmala Guzman 07/15 10:00:00 AM EST [facility] ([facility] ) Outpatient Attender: Nirmala Guzman 02/10 02:45:00 PM EDT [facility] ([facility] ) Outpatient Attender: Nirmala Guzman 12/25 01:00:00 PM EDT [facility] ([facility] ) Outpatient Referrer: Nirmala BRINK-SJPNARENDRA 12/04/2019 12 :00:00 AM EDT [facility] Outpatient Referrer: Nirmala Ho DO 11/12/2019 03:52:00 PM EST [facility] Outpatient Attender: Nirmala Guzman 11/10 12:00:00 PM EST [facility] ([facility] ) Outpatient [id number] 11/03/2019 11:42:30 AM EST [facility] Outpatient Referrer: Nirmala Ho DO 11/01/2019 02:07:00 PM EST [facility] Outpatient Referrer: Nirmala BRINK-[email or web address] 10/31/2019 12 :00:00 AM EST [facility] Outpatient Attender: Nirmala Guzman 10/29 10:00:00 AM EST [facility] ([facility] ) Outpatient Referrer: Nirmala Ho DO 10/16/2019 10:33:00 AM EST [facility] Outpatient Referrer: Nirmala Ho DO 10/16/2019 07:17:00 AM EST [facility] Outpatient Referrer: Nirmala Ho DO 10/15/2019 03:08:00 PM EST [facility] Outpatient Referrer: Nirmala Ho DO 10/15/2019 03:02:00 PM EST [facility] Outpatient Referrer: Nirmala Ho DO 10/15/2019 03:02:00 PM EST [facility] Outpatient Referrer: Nirmala Ho DO 10/15/2019 03:01:00 PM EST [facility] Outpatient Attender: Nirmala Guzman 10/15 10:20:00 AM EST [facility] ([facility] ) Outpatient Attender: Nirmala Guzman 10/01 10:00:00 AM EST [facility] ([facility] ) Outpatient Attender: Nirmala Guzman 08/26 09:00:00 AM EST [facility] ([facility] ) Immunizations Vaccine Date Status Description Data Source(s) Influenza, injectable, MDCK, preservative free, jasiel valent 05/29/2020 03:08:00 PM EDT completed [facility]) Medications Medication Brand Name Start Date Product Form Dose Route Admi nistrative Instructions Pharmacy Instructions Status Indications Reaction Description Data Source(s) montelukast 10 MG Oral Tablet Montelukast Sodium 07/20/2020 12:00:00 AM EST active [facility] ([facility]) Melatonin 10 MG Oral Tablet Melatonin 07/15/2020 12:00:00 AM EST active [facility]) Clotrimazole 20 MG/ML Vaginal Cream 3 Day Vaginal 07/15/2020 12:00: 00 AM EST active [facility] ([facility]) Estradiol 0.01 MG Vaginal Tablet [Vagifem] Vagifem 07/15/2020 12:00:00 AM EST completed [facility] ([facility]) Sucralfate 1000 MG Oral Tablet [Carafate] Carafate 07/15/2020 1 2:00:00 AM EST active [facility] ([facility]) Administration Of Flu Vaccine 05/29/2020 12:00:00 AM EDT completed [facility] Medication administered onsite Furosemide 20 MG Oral Tablet Furosemide 02/11/2020 12:00:00 AM EDT ORAL active [facility] ([facility]) Prednisone 10 MG Oral Tablet Prednisone 12/26/2019 12:00:00 AM EDT completed [facility] ([facility]) Losartan Potassium 50 MG Oral Tablet Losartan Potassium 12:00:00 AM EDT ORAL active [facility] ([facility]) Digoxin 0.125 MG Oral Tablet Digoxin 11/12/2019 12:00:00 AM EST ORAL active [facility] ([facility]) Furosemide 40 MG Oral Tablet Furosemide 11/11/2019 12:00:00 AM EST ORAL completed [facility] ([facility]) 30 ACTUAT fluticasone furoate 0.2 MG/ACT UAT / vilanterol 0.025 MG/ACTUAT Dry Powder Inhaler [Breo] Breo Ellipta 10/29/2019 12:00:00 AM EST active [facility] Furosemide 20 MG Oral Tablet Furosemide 10/29/2019 12:00:00 AM EST ORAL completed [facility] ([facility]) Prednisone 10 MG Oral Tablet Prednisone 10/29/2019 12:00:00 AM EST completed [facility] ([facility]) Potassium Chloride 10 MEQ Extended Release Oral Capsul e [Klor-Con] Klor-Con Sprinkle 10/29/2019 12:00:00 AM EST ORAL completed [facility] ([facility]) pantoprazole 40 MG Delayed Release Oral Tablet Pantoprazole Sodium 10/15/2019 12:00:00 AM EST ORAL active M [facility] ([facility]) 30 ACTUAT fluticasone furoate 0.2 MG/ACTUAT Dry Powder Inhaler [Arnuity] Arnuity Ellipta 10/15/2019 12:00:00 AM EST RESPIRATORY complete d [facility] ([facility]) Prednisone 10 MG Oral Tablet Prednisone 10/01/2019 12:00:00 AM EST completed [facility] ([facility]) levocetirizine dihydrochloride 5 MG Oral Tablet Levocetirizi ne Dihydrochloride 10/01/2019 12:00:00 AM EST ORAL active [facility] ([facility]) valsartan 40 MG Oral Tablet Valsartan 08/26/2019 12:00:00 AM EST ORAL completed [facility] ([facility]) Famotidine 20 MG Oral Tablet Famotidine 07/24/2019 12:00:00 AM EST ORAL completed [facility] ([facility]) 30 ACTUAT fluticasone furoate 0.2 MG/ACT UAT / vilanterol 0.025 MG/ACTUAT Dry Powder Inhaler [Breo] Breo Ellipta 07/05/2019 12:00:00 AM EDT completed [facility] ([facility]) Prednisone 10 MG Oral Tablet Prednisone 07/05/2019 12:00:00 AM EDT completed [facility] ([facility]) Olmesartan medoxomil 5 MG Oral Tablet Olmesartan Medoxomil 1 12:00:00 AM EDT ORAL completed [facility] ([facility]) Insurance Providers Payer name Policy type / Coverage type Policy ID Covered alliance party ID Covered alliance party's relationship to adler Policy Adler Plan Information WELLCARE [id number] SP [id number] WELLCARE [id number] SP [id number] WELLCARE O [id number] S [id number] WELLCARE MEDICARE [id number] Tessie 07 [id number] [facility] [id number] S [id number] [place]LLCARE O [id number] S [id number] TODAYS OPTIONS [id number] SP [id number] [place] Med[place] B [id number] Self [id number] Todays Options Medigap Part B [id number] Self [id number] Wellcare Commercial [id number] Self [id number] [facility] [place] [id number] Self [id number] Medicare Natl Govt Servic Medicare Primary [id number] Self [id number] Wellcare/Todays Optmcr Commercial [id number] Self [id number] Wellcare/Todays Optmcr Commercial [id number] Self [id number] [place] Medigap Part B [id number] Self [id number] Medicare Blue Ppo Commercial [id number] Self [id number] [place] Med[place] Part B [id number] Self [id number] Todays Options Medigap Part B [id number] Self [id number] Wellcare Commercial [id number] Self [id number] [place] Med[place]ap Part B [id number] Self [id number] Todays Options Medigap Part B [id number] Self [id number] Wellcare Commercial [id number] Self [id number] Medicare Natl Govt Servic Medicare Primary [id number] Self [id number] [place] Med[place]ap Part B [id number] Self [id number] Todays Options Medigap Part B [id number] Self [id number] Wellcare Commercial [id number] Self [id number] [place] Med[place]ap Part B [id number] Self [id number] Todays Options Medigap Part B [id number] Self [id number] Wellcare Commercial [id number] Self [id number] [place] Medigap Part B [id number] Self [id number] Todays Options Medigap Part B [id number] Self [id number] Wellcare Commercial [id number] Self [id number] Medicare Natl Govt Servic Medicare Primary [id number] Self [id number] Wellcare/Todays Optmcr Commercial [id number] Self [id number] [place] Medigap Part B [id number] Self [id number] Todays Options Commercial [id number] Self [id number] Medicare [place] Medigap Part B [id number] Self [id number] Todays Options Commercial [id number] Self [id number] Medicare Natl Govt Servic Medicare Primary [id number] Self [id number] Todays Option Medicare Commercial [id number] Self [id number] Todays Option Medicare Commercial [id number] Self [id number] [place] Med[place]ap Part B [id number] Self [id number] Todays Options Commercial [id number] Self [id number] [place] Medigap Part B [id number] Self [id number] Todays Options Commercial [id number] Self [id number] [place] Medigap Part B [id number] Self [id number] Todays Options Commercial [id number] Self [id number] Medicare Natl Govt Servic Medicare Primary [id number] Self [id number] Todays Option Medicare Commercial [id number] Self [id number] [place] Medigap Part B [id number] Self [id number] Todays Options Commercial [id number] Self [id number] [place] Medigap Part B [id number] Self [id number] Todays Options Commercial [id number] Self [id number] [place] Medigap Part B [id number] Self [id number] Todays Options Commercial [id number] Self [id number] [place] Medigap Part B [id number] Self [id number] Todays Options Commercial [id number] Self [id number] Medicare [place] Medigap Part B [id number] Self [id number] Todays Options Commercial [id number] Self [id number] Medicare [place] Medigap Part B [id number] Self [id number] Todays Options Commercial [id number] Self [id number] Medicare Natl Govt Servic Medicare Primary [id number] Self [id number] Todays Option Medicare Commercial [id number] Self [id number] Medicare Natl Govt Servic Medicare Primary [id number] Self [id number] Todays Option Medicare Commercial [id number] Self [id number] TODAYS OPTIONS/[place] O [id number] S [id number] Medicare Natl Govt Servic Medicare Primary [id number] Self [id number] Todays Option Medicare Commercial [id number] Self [id number] MEDICARE C [id number] S [id number] Medicare Natl Govt Servic Medicare Primary [id number] Self [id number] Todays Option Medicare Commercial [id number] Self [id number] Medicare Natl Govt Servic Medicare Primary [id number] Self [id number] Todays Option Medicare Commercial [id number] Self [id number] Todays Option Medicare Commercial [id number] Self [id number] [place] Medigap Part B [id number] Self [id number] Medicare Natl Govt Servic Medicare Primary Self Medicare Blue Ppo Commercial 802 Self 8 02 Todays Option Medicare Commercial Advantage Plus 550B Ppo Se lf Advantage Plus 550B Ppo EXCELLUS BCBS P [id number] S VYM [id number] MEDICARE BLUE PPO 306 [id number] SP [id number] Problems, Conditions, and Diagnoses Code Display Name Description Problem Type Effective Dates Data Source(s) [id number] Abdominal pain Abdominal pain Problem 09/24/2020 12:00: 00 AM EST [facility] ([facility]) Surgeries/Procedures Procedure Description Date Indications Data Source(s) ARTHROCENTESIS ASPIR&/INJECTION MAJOR JT/BURSA 12:00:00 AM EDT [facility] ([facility] ) ARTHROCENTESIS ASPIR&/INJECTION MAJOR JT/BURSA 12:00:00 AM EDT [facility] ([facility] ) ARTHROCENTESIS ASPIR&/INJECTION MAJOR JT/BURSA 020 12:00:00 AM EST [facility] ([facility] ) Results ID Date Data Source [id number] 10/07/2020 12:00:00 PM EST [facility] Name Value Range Interpretation Code Description Data Marisela rce(s) Supporting Document(s) SARS coronavirus 2 RNA Not Detected [facility] This lab was ordered by [facility] and reported by [facility]. ID Date Data Source [id number] 07/24/2020 12:00:00 AM EST [facility] [place] Patient Name: HANY [id number] [facility] Date of : 1935[address] [facility]: [facility] [id number] Fax: [id number] EXAM: UGI AIR CONTRAST WITH SBFTCLINICAL INFORMATION: Epigastric pain.The procedure was performed by JOÃO Ortiz, under the directsupervision of Dr. Khalil. All images were reviewed with Dr. Khalil atthe time of this dictation.The delivery room clerk films shows no organomegaly or pathological masses. Theintestinal gas pattern is nonspecific. There are surgical clips noted inthe right upper quadrant. There are vascular calcifications identified.Liquid barium and gas producing granules were given in the erect positionas well as liquid barium in the prone oblique position in order to performa double contrast upper GI examination. Additionally, liquid barium wasgiven at the end of the examination in order to perform a small bowelfollow through.The oral and pharyngeal stages of deglutition appeared unremarkable.During esophageal transport there are tertiary waves demonstrated. Thereis no esophagitis, stricture, mucosal ring, or hiatal hernia.Gastroesophageal reflux was not observed.The stomach méndez were normally outlined. There is a gastric diverticulumin the fundus. The rugal folds were smooth and regular. There was nogastritis, neoplasm, or ulcer disease.In the duodenum, there thickened folds which may represent duodenitis.Recommend endoscopy for further evaluation. The visualized portion of theproximal small appears normal in course and caliber.The barium column was followed through the small bowel to the level of theterminal ileum. Small bowel transit time is approximately 1 hour and 10minutes. During fluoroscopy, gentle palpation shows all loops are freelymovable and pliable. There are no fixed or angulated loops. The smallbowel mucosal pattern was normal in course and caliber. There was notransition to suggest a partial small bowel obstruction. Spot filming ofthe terminal ileum showed it to be within normal limits.IMPRESSION:1. Tertiary waves.2. There is a gastric diverticulum in the fundus. Otherwise, the stomachis unremarkable.3. There are thickened folds in the duodenum which may representduodenitis. Recommend endoscopy for further evaluation.Dictated by: Jay Rebollar, [facility], with Dr. Khalil.Fluoroscopy time was minutes 17 seconds at 15 pulses/second. This is equalto 3 minutes 26 seconds continuous fluoroscopy time which is a 33%reduction in radiation.JOSUÉ Delong/Joe you for referring HANY PURI to our office. Electronically Signed - EMMA KHALIL DO 07/27/20 16:59 Name Value Range Interpretation Code Description Data Marisela rce(s) Supporting Document(s) ID Date Data Source [id number] 07/15/2020 11:39:00 AM EST [facility] ([facility]) Name Value Range Interpretation Code Description Data Marisela rce(s) Supporting Document(s) Ferritin [Mass/volume] in Serum or Plasma 86 ng/mL 8-252 [facility] ([facility]) ID Date Data Source [id number] 07/15/2020 11:39:00 AM EST [facility] ([facility]) Name Value Range Interpretation Code Description Data Marisela rce(s) Supporting Document(s) Total Iron Binding Capacity 340 ug/dL 250-450 [facility] ([facility]) Iron (Fe) 54 ug/dL 50-170 [facility] Percent Saturation 15.9 % 13.2-45.0 [facility] ([facility]) ID Date Data Source [id number] 07/15/2020 11:39:00 AM EST [facility] ([facility]) Name Value Range Interpretation Code Description Data Marisela rce(s) Supporting Document(s) Digoxin [Mass/volume] in Serum or Plasma 1.3 ng/mL 0.5-2.0 [facility] ([facility]) ID Date Data Source [id number] 07/15/2020 11:38:00 AM EST [facility] ([facility]) Name Value Range Interpretation Code Description Data Marisela rce(s) Supporting Document(s) Thyroxine (T4) free [Mass/volume] in Serum or Plasma 0.95 ng/dL 0.76- 1.46 [facility] ([facility]) ID Date Data Source [id number] 07/15/2020 11:38:00 AM EST [facility] ([facility]) Name Value Range Interpretation Code Description Data Marisela rce(s) Supporting Document(s) Thyrotropin [Units/volume] in Serum or Plasma by Detec tion limit <= 0.05 mIU/L 3.87 uIU/mL 0.36-3.74 [facility] ([facility] ) ID Date Data Source [id number] 07/15/2020 11:38:00 AM EST [facility] ([facility]) Name Value Range Interpretation Code Description Data Marisela rce(s) Supporting Document(s) Triglyceride [Mass/volume] in Serum or Plasma 150 mg/dL 30-150 [facility] ([facility]) Cholesterol in HDL [Mass/volume] in Serum or Plasma 48 mg/dL 35-60 [facility] ([facility]) Cholesterol [Mass/volume] in Serum or Plasma 219 mg/dL 131-200 [facility] ([facility]) Cholesterol in LDL [Mass/volume] in Serum or Plasma by calcu lation 141 CALC 50-159 [facility] ([facility]) ID Date Data Source [id number] 07/15/2020 11:38:00 AM EST [facility] ([facility]) Name Value Range Interpretation Code Description Data Marisela rce(s) Supporting Document(s) Glucose [Mass/volume] in Serum or Plasma 108 mg/dL 74-99 [facility] ([facility]) 100-125 mg/dL PRE-DIABETES/FASTING >126 mg/dL DIABETES/FASTING Creatinine 0.9 mg/dL 0.6-1.3 [facility] Urea nitrogen [Mass/volume] in Serum or Plasma 14 mg/dL 7-18 [facility] ([facility]) Sodium [Moles/volume] in Serum or Plasma 142 meq/L 136-145 [facility] ([facility]) Chloride [Moles/volume] in Serum or Plasma 103 meq/L 98-107 [facility] ([facility]) Potassium [Moles/volume] in Serum or Plasma 3.8 meq/L 3.5-5.1 [facility] ([facility]) Carbon dioxide, total [Moles/volume] in Serum or Plasma 30 meq/L 21 -32 [facility] ([facility]) Alkaline phosphatase isoenzyme [Units/volume] in Serum or Pl asma 90 mg/dL 46-116 [facility] ([facility]) Calcium [Mass/volume] in Serum or Plasma 9.1 mg/dL 8.5-10.1 [facility] ([facility]) Total Bilirubin 0.7 mg/dL 0.2-1.0 [facility] ([facility]) Aspartate aminotransferase [Enzymatic activity/volume] in Serum or Plasma 13 U/L 15-37 [facility] ([facility] ) Albumin [Mass/volume] in Serum or Plasma 3.7 g/dL 3.4-5.0 [facility] ([facility]) Alanine aminotransferase [Enzymatic activity/volume] in Seru m or Plasma 13 U/L 12-78 [facility] ([facility]) A/G Ratio 0.86 CALC 1.00-1.90 [facility] Proteinase 3 Ab [Units/volume] in Serum 8.0 g/dL 6.4-8.2 [facility] ([facility]) Glomerular filtration rate/1.73 sq M pre dicted among non-blacks [Volume Rate/Area] in Serum or Plasma by Creatinine-based formula (MDRD) 59 mL/min [facility] ([facility]) Glomerular filtration rate/1.73 sq M pre dicted among blacks [Volume Rate/Area] in Serum or Plasma by Creatinine-based formula (MDRD) Laboratory test result [facility] <content>CHRONIC KIDNEY DISEASE STAGING PER NKF</content>
<content></content>
<content>STAGE I & II GFR >= 60 NORMAL TO MILDLY DECREASED</content>
<content>STAGE III GFR 30-59 MODERATELY DECREASED</content>
<content>STAGE IV GFR 15-29 SEVERELY DECREASED</content>
<content>STAGE V GFR <15 VERY LITTLE GFR LEFT</content>
<content>ESRD GFR <15 ON ASSISTANT BROKER</content>
<content></content> ID Date Data Source [id number] 07/15/2020 11:38:00 AM EST [facility] ([facility]) Name Value Range Interpretation Code Description Data Marisela rce(s) Supporting Document(s) Hemoglobin [Mass/volume] in Blood 12.6 g/dL 12.0-18.0 [facility] ([facility]) Hematocrit [Volume Fraction] of Blood by Automated count 37.3 % 3 7.0-51.0 [facility] Leukocytes [#/volume] in Blood by Automated count 8.0 x10*3/UL 4.1-10 .9 [facility] Erythrocytes [#/volume] in Blood by Automated count 4.51 x10*6/UL 4.2 0-6.30 [facility] MCH 27.9 pg 26.0-32.0 [facility] MCHC 33.8 g/dL 31.0-38.0 [facility] ([facility]) MCV 82.8 fL 80.0-97.0 [facility] ([facility]) Lymph % 16.0 % 10.0-58.5 [facility] ([facility]) Erythrocyte distribution width [Ratio] by Automated count 13.7 % 11.6-13.7 [facility] ([facility]) MPV 9.4 FL 7.8-11.0 [facility] ([facility]) Platelets [#/volume] in Blood by Automated count 145 x10*3/UL 140-440 [facility] ([facility]) Neut % 80.0 % 37.0-92.0 [facility] Lymph # 1.2 x10*3/UL 0.6-4.1 [facility] ([facility]) Mid % 4.0 % 1.7-9.3 [facility] Mid # 0.4 x10*3/UL 0.1-0.6 [facility] ([facility]) Neut # 6.4 x10*3/UL 2.0-7.8 [facility] ([facility]) ID Date Data Source [id number] 02/11/2020 03:04:00 PM EDT [facility] ([facility]) Name Value Range Interpretation Code Description Data Marisela rce(s) Supporting Document(s) Creatinine 1.1 mg/dL 0.6-1.3 [facility] ([facility]) Urea nitrogen [Mass/volume] in Serum or Plasma 12 mg/dL 7-18 [facility] ([facility]) Glucose [Mass/volume] in Serum or Plasma 137 mg/dL 74-99 [facility] ([facility]) 100-125 mg/dL PRE-DIABETES/FASTING >126 mg/dL DIABETES/FASTING Potassium [Moles/volume] in Serum or Plasma 3.5 meq/L 3.5-5.1 [facility] ([facility]) Sodium [Moles/volume] in Serum or Plasma 143 meq/L 136-145 [facility] ([facility]) Chloride [Moles/volume] in Serum or Plasma 105 meq/L 98-107 [facility] ([facility]) Calcium [Mass/volume] in Serum or Plasma 8.1 mg/dL 8.5-10.1 [facility] ([facility]) Glomerular filtration rate/1.73 sq M pre dicted among blacks [Volume Rate/Area] in Serum or Plasma by Creatinine-based formula (MDRD) 57 mL/min [facility] ([facility]) <content>CHRONIC KIDNEY DISEASE STAGING PER NKF</content>
<content></content>
<content>STAGE I & II GFR >= 60 NORMAL TO MILDLY DECREASED</content>
<content>STAGE III GFR 30-59 MODERATELY DECREASED</content>
<content>STAGE IV GFR 15-29 SEVERELY DECREASED</content>
<content>STAGE V GFR <15 VERY LITTLE GFR LEFT</content>
<content>ESRD GFR <15 ON ASSISTANT BROKER</content>
<content></content> Carbon dioxide, total [Moles/volume] in Serum or Plasma 29 meq/L 21 -32 [facility] ([facility]) Glomerular filtration rate/1.73 sq M pre dicted among non-blacks [Volume Rate/Area] in Serum or Plasma by Creatinine-based formula (MDRD) 47 mL/min [facility] ([facility]) ID Date Data Source [id number] 12/26/2019 01:30:00 PM EDT [facility] ([facility]) Name Value Range Interpretation Code Description Data Marisela rce(s) Supporting Document(s) C reactive protein [Mass/volume] in Serum or Plasma by High sensitivity method Laboratory test result 0.00-0.30 [facility] ID Date Data Source [id number] 12/26/2019 01:28:00 PM EDT [facility] ([facility]) Name Value Range Interpretation Code Description Data Marisela rce(s) Supporting Document(s) Glucose [Mass/volume] in Serum or Plasma 112 mg/dL 74-99 [facility] ([facility]) 100-125 mg/dL PRE-DIABETES/FASTING >126 mg/dL DIABETES/FASTING Urea nitrogen [Mass/volume] in Serum or Plasma 10 mg/dL 7-18 [facility] ([facility]) Potassium [Moles/volume] in Serum or Plasma 3.4 meq/L 3.5-5.1 [facility] ([facility]) Creatinine 1.0 mg/dL 0.6-1.3 [facility] Sodium [Moles/volume] in Serum or Plasma 143 meq/L 136-145 [facility] ([facility]) Chloride [Moles/volume] in Serum or Plasma 102 meq/L 98-107 [facility] ([facility]) Calcium [Mass/volume] in Serum or Plasma 8.7 mg/dL 8.5-10.1 [facility] ([facility]) Glomerular filtration rate/1.73 sq M pre dicted among non-blacks [Volume Rate/Area] in Serum or Plasma by Creatinine-based formula (MDRD) 53 mL/min [facility] ([facility]) Carbon dioxide, total [Moles/volume] in Serum or Plasma 32 meq/L 21 -32 [facility] ([facility]) Glomerular filtration rate/1.73 sq M pre dicted among blacks [Volume Rate/Area] in Serum or Plasma by Creatinine-based formula (MDRD) Laboratory test result [facility] ([facility]) <content>CHRONIC KIDNEY DISEASE STAGING PER NKF</content>
<content></content>
<content>STAGE I & II GFR >= 60 NORMAL TO MILDLY DECREASED</content>
<content>STAGE III GFR 30-59 MODERATELY DECREASED</content>
<content>STAGE IV GFR 15-29 SEVERELY DECREASED</content>
<content>STAGE V GFR <15 VERY LITTLE GFR LEFT</content>
<content>ESRD GFR <15 ON ASSISTANT BROKER</content>
<content></content> ID Date Data Source [id number] 12/26/2019 01:28:00 PM EDT [facility] ([facility]) Name Value Range Interpretation Code Description Data Marisela rce(s) Supporting Document(s) Natriuretic peptide B [Mass/volume] in Serum or Plasma 118.0 pg/mL 0.0-100.0 [facility] ([facility]) ID Date Data Source [id number] 12/26/2019 01:28:00 PM EDT [facility] ([facility]) Name Value Range Interpretation Code Description Data Marisela rce(s) Supporting Document(s) Leukocytes [#/volume] in Blood by Automated count 5.2 x10*3/UL 4.1-10 .9 [facility] Erythrocytes [#/volume] in Blood by Automated count 4.07 x10*6/UL 4.2 0-6.30 [facility] Hematocrit [Volume Fraction] of Blood by Automated count 34.5 % 3 7.0-51.0 [facility] Hemoglobin [Mass/volume] in Blood 11.9 g/dL 12.0-18.0 [facility] ([facility]) MCV 84.8 fL 80.0-97.0 [facility] Erythrocyte distribution width [Ratio] by Automated count 13.5 % 11.6-13.7 [facility] MCH 29.3 pg 26.0-32.0 [facility] MCHC 34.5 g/dL 31.0-38.0 [facility] ([facility]) Lymph % 16.9 % 10.0-58.5 [facility] ([facility]) MPV 9.0 FL 7.8-11.0 [facility] ([facility]) Platelets [#/volume] in Blood by Automated count 145 x10*3/UL 140-440 [facility] ([facility]) Mid % 4.7 % 1.7-9.3 [facility] ([facility]) Lymph # 0.8 x10*3/UL 0.6-4.1 [facility] ([facility]) Neut % 78.4 % 37.0-92.0 [facility] ([facility]) Mid # 0.3 x10*3/UL 0.1-0.6 [facility] ([facility]) Neut # 4.1 x10*3/UL 2.0-7.8 [facility] ([facility]) ID Date Data Source [id number] 11/11/2019 01:39:00 PM EST [facility] ([facility]) Name Value Range Interpretation Code Description Data Marisela rce(s) Supporting Document(s) Digoxin [Mass/volume] in Serum or Plasma 2.1 ng/mL 0.5-2.0 [facility] ([facility]) ID Date Data Source [id number] 11/11/2019 01:38:00 PM EST [facility] ([facility]) Name Value Range Interpretation Code Description Data Marisela rce(s) Supporting Document(s) Thyrotropin [Units/volume] in Serum or Plasma by Detec tion limit <= 0.05 mIU/L 1.87 uIU/mL 0.36-3.74 [facility] ([facility] ) ID Date Data Source [id number] 11/11/2019 01:38:00 PM EST [facility] ([facility]) Name Value Range Interpretation Code Description Data Marisela rce(s) Supporting Document(s) Glucose [Mass/volume] in Serum or Plasma 140 mg/dL 74-99 [facility] ([facility]) 100-125 mg/dL PRE-DIABETES/FASTING >126 mg/dL DIABETES/FASTING Sodium [Moles/volume] in Serum or Plasma 141 meq/L 136-145 [facility] ([facility]) Creatinine 1.1 mg/dL 0.6-1.3 [facility] ([facility]) Urea nitrogen [Mass/volume] in Serum or Plasma 19 mg/dL 7-18 [facility] ([facility]) Chloride [Moles/volume] in Serum or Plasma 103 meq/L 98-107 [facility] ([facility]) Carbon dioxide, total [Moles/volume] in Serum or Plasma 29 meq/L 21 -32 [facility] ([facility]) Potassium [Moles/volume] in Serum or Plasma 4.3 meq/L 3.5-5.1 [facility] ([facility]) Glomerular filtration rate/1.73 sq M pre dicted among blacks [Volume Rate/Area] in Serum or Plasma by Creatinine-based formula (MDRD) 57 mL/min [facility] <content>CHRONIC KIDNEY DISEASE STAGING PER NKF</content>
<content></content>
<content>STAGE I & II GFR >= 60 NORMAL TO MILDLY DECREASED</content>
<content>STAGE III GFR 30-59 MODERATELY DECREASED</content>
<content>STAGE IV GFR 15-29 SEVERELY DECREASED</content>
<content>STAGE V GFR <15 VERY LITTLE GFR LEFT</content>
<content>ESRD GFR <15 ON ASSISTANT BROKER</content>
<content></content> Glomerular filtration rate/1.73 sq M pre dicted among non-blacks [Volume Rate/Area] in Serum or Plasma by Creatinine-based formula (MDRD) 47 mL/min [facility]) Calcium [Mass/volume] in Serum or Plasma 8.7 mg/dL 8.5-10.1 [facility] ([facility]) ID Date Data Source [id number] 11/11/2019 01:38:00 PM EST [facility] ([facility]) Name Value Range Interpretation Code Description Data Marisela rce(s) Supporting Document(s) Erythrocytes [#/volume] in Blood by Automated count 4.49 x10*6/UL 4.2 0-6.30 [facility] ([facility]) Leukocytes [#/volume] in Blood by Automated count 12.8 x10*3/UL 4.1-1 0.9 [facility] ([facility]) NOTE: RESULT VERIFIED. Hematocrit [Volume Fraction] of Blood by Automated count 39.4 % 3 7.0-51.0 [facility] ([facility]) Hemoglobin [Mass/volume] in Blood 13.2 g/dL 12.0-18.0 [facility] ([facility]) MCV 87.6 fL 80.0-97.0 [facility] ([facility]) Erythrocyte distribution width [Ratio] by Automated count 13.0 % 11.6-13.7 [facility] ([facility]) MCH 29.3 pg 26.0-32.0 [facility] MCHC 33.5 g/dL 31.0-38.0 [facility] ([facility]) Platelets [#/volume] in Blood by Automated count 195 x10*3/UL 140-440 [facility] ([facility]) Lymph % 7.0 % 10.0-58.5 [facility] ([facility]) MPV 9.5 FL 7.8-11.0 [facility] ([facility]) Lymph # 0.9 x10*3/UL 0.6-4.1 [facility] ([facility]) Mid % 2.1 % 1.7-9.3 [facility] Neut % 90.9 % 37.0-92.0 [facility] Neut # 11.6 x10*3/UL 2.0-7.8 [facility] ([facility]) Mid # 0.3 x10*3/UL 0.1-0.6 [facility] ([facility]) ID Date Data Source [id number] 11/05/2019 10:54:00 AM EST [facility] ([facility]) Name Value Range Interpretation Code Description Data Marisela rce(s) Supporting Document(s) CK-MB Value Mass 2.5 ng/mL [facility] ([facility]) MB/CK Relative Index 2.94 [facility] ([facility]) <content>DIAGNOSIS CRITERIA</content>
<content>MMB ng/ml Relative Index (RI)</content>
<content>NON-AMI < or = 5 N/A</content>
<content>MORRIS ZONE > 5 < or = 4</content>
<content>AMI > 5 > 4</content>
<content></content> CPK Creatine Phosphokinase 85 U/L 26-192 [facility] ([facility]) Troponin I 0.14 ng/mL [facility] <content>Troponin I Reference Interval f or Siemens [place] LOCI:</content>
<content></content>
<content>99th Percentile= 0.00-0.045 ng/ml</content>
<content></content>
<content>Risk Stratification:</content>
<content><= 0.10 ng/ml Decreased Risk for Adverse Clinical</content>
<content>Events.</content>
<content>0.10-1.50 ng/ml Increased Risk for Adverse Clinical</content>
<content>Events. Evaluation of additional</content>
<content>criterion and/or repeat testing in 2-6</content>
<content>hours is suggested to rule out myocardial</content>
<content>damage.</content>
<content>>= 1.50 ng/ml Indicative of Myocardial Injury.</content>
<content></content> ID Date Data Source [id number] 11/05/2019 08:33:00 AM EST [facility] Name Value Range Interpretation Code Description Data Marisela rce(s) Supporting Document(s) CPK Creatine Phosphokinase 73 U/L 26-192 [facility] ([facility]) CK-MB Value Mass 2.2 ng/mL [facility] ([facility]) Troponin I 0.09 ng/mL Significant change down [facility] ([facility]) <content>Troponin I Reference Interval f or [employer] [place] LOCI:</content>
<content></content>
<content>99th Percentile= 0.00-0.045 ng/ml</content>
<content></content>
<content>Risk Stratification:</content>
<content><= 0.10 ng/ml Decreased Risk for Adverse Clinical</content>
<content>Events.</content>
<content>0.10-1.50 ng/ml Increased Risk for Adverse Clinical</content>
<content>Events. Evaluation of additional</content>
<content>criterion and/or repeat testing in 2-6</content>
<content>hours is suggested to rule out myocardial</content>
<content>damage.</content>
<content>>= 1.50 ng/ml Indicative of Myocardial Injury.</content>
<content></content> MB/CK Relative Index 3.01 [facility]) <content>DIAGNOSIS CRITERIA</content>
<content>MMB ng/ml Relative Index (RI)</content>
<content>NON-AMI < or = 5 N/A</content>
<content>MORRIS ZONE > 5 < or = 4</content>
<content>AMI > 5 > 4</content>
<content></content> ID Date Data Source [id number] 11/05/2019 07:35:00 AM EST [facility]) Name Value Range Interpretation Code Description Data Marisela rce(s) Supporting Document(s) Red Blood Count 3.87 10 4.00-5.40 [facility] ([facility]) Hemoglobin 11.2 g/dL 12.0-15.5 [facility] White Blood Count 7.4 10 4.0-10.0 [facility] ([facility]) Hematocrit 34.5 % 36.0-47.0 [facility] Mean Corpuscular Volume 89.1 fl 80.0-96.0 [facility] ([facility]) Mean Corpuscular Hemoglobin 28.9 pg 27.0-33.0 [facility] ([facility]) Mean Corpuscular HGB Conc 32.5 g/dL 32.0-36.5 [facility] ([facility]) Red Cell Distribution Width 13.3 % 11.5-14.5 [facility] ([facility]) Platelet Count, Automated 228 10 150-450 [facility] ([facility]) Lymph % 13.4 % 24.0-44.0 [facility] Neutrophils % 78.4 % 36.0-66.0 [facility] ([facility]) [place] % 6.9 % 0.0-5.0 [facility]) Eos % 0.1 % 0.0-3.0 [facility] Baso % 0.1 % 0.0-1.0 [facility]) Immature Granulocyte % 1.1 % 0-3.0 [facility] ([facility]) Nucleated Red Blood Cell % 0.0 % 0-0 [facility] ([facility]) Neutrophils # 5.8 10 1.5-8.5 [facility] ([facility]) [place] # 0.5 10 0.0-0.8 [facility]) Lymph # 1.0 10 1.5-5.0 [facility]) Baso # 0.0 10 0.0-0.2 [facility] Eos # 0.0 10 0.0-0.5 [facility] ([facility]) ID Date Data Source [id number] 11/05/2019 07:35:00 AM EST [facility] ([facility]) Name Value Range Interpretation Code Description Data Marisela rce(s) Supporting Document(s) Partial Thromboplastin Time 29.5 s 25.0-38.4 PR [facility] ([facility]) Prothrombin Time 12.9 s 11.8-14.0 [facility] ([facility]) Inr 1.00 [facility]) THERAPUTIC HUMAN INR VALUES INDICATIONS NORMAL RANGES PROPHYLAXIS/TREATMENT OF: VENOUS THROMBOSIS 2.0-3.0 PULMONARY EMBOLISM 2.0-3.0 PREVENTION OF SYSTEMIC EMBOLISM FROM: TISSUE HEART VALVES 2.0-3.0 ACUTE MYOCARDIAL INFARCTION 2.0-3.0 VALVULAR HEART DISEASE 2.0-3.0 ATRIAL FIBRILLATION 2.0-3.0 MECHANICAL VALVES(HIGH RISK) 2.5-3.5 RECURRENT MYOCARDIAL INFARCTION 2.5-3.5 ID Date Data Source [id number] 11/05/2019 07:35:00 AM EST [facility] ([facility]) Name Value Range Interpretation Code Description Data Marisela rce(s) Supporting Document(s) CK-MB Value Mass 1.9 ng/mL [facility] ([facility]) CPK Creatine Phosphokinase 77 U/L 26-192 [facility] ([facility]) Troponin I Laboratory test result [facility] ([facility]) <content>Troponin I Reference Interval f or Siemens [place] LOCI:</content>
<content></content>
<content>99th Percentile= 0.00-0.045 ng/ml</content>
<content></content>
<content>Risk Stratification:</content>
<content><= 0.10 ng/ml Decreased Risk for Adverse Clinical</content>
<content>Events.</content>
<content>0.10-1.50 ng/ml Increased Risk for Adverse Clinical</content>
<content>Events. Evaluation of additional</content>
<content>criterion and/or repeat testing in 2-6</content>
<content>hours is suggested to rule out myocardial</content>
<content>damage.</content>
<content>>= 1.50 ng/ml Indicative of Myocardial Injury.</content>
<content></content> MB/CK Relative Index 2.47 [facility] ([facility]) <content>DIAGNOSIS CRITERIA</content>
<content>MMB ng/ml Relative Index (RI)</content>
<content>NON-AMI < or = 5 N/A</content>
<content>MORRIS ZONE > 5 < or = 4</content>
<content>AMI > 5 > 4</content>
<content></content> ID Date Data Source [id number] 11/05/2019 07:35:00 AM EST [facility] ([facility]) Name Value Range Interpretation Code Description Data Marisela rce(s) Supporting Document(s) Glucose, Fasting 116 mg/dL 70-100 [facility] ([facility]) Blood Urea Nitrogen 20 mg/dL 7-18 [facility] Creatinine For GFR 0.90 mg/dL 0.55-1.30 [facility] ([facility] Sodium Level 145 meq/L 136-145 [facility] ([facility]) Glomerular Filtration Rate Laboratory test result [facility]) <content>Units are mL/min/1.73 m2</content>
<content></content>
<content>Chronic Kidney Disease Staging per NKF:</content>
<content></content>
<content>Stage I & II GFR >=60 Normal to Mildly Decreased</content>
<content>Stage III GFR 30- 59 Moderately Decreased</content>
<content>Stage IV GFR 15-29 Severely Decreased</content>
<content>Stage V GFR <15 Very Little GFR Left</content>
<content>ESRD GFR <15 on ASSISTANT BROKER</content>
<content></content> Potassium Serum 3.5 meq/L 3.5-5.1 [facility] ([facility]) Chloride Level 113 meq/L 98-107 [facility] ([facility]) Carbon Dioxide Level 27 meq/L 21-32 [facility] ([facility]) Anion Gap 5 meq/L 8-16 [facility] ([facility]) Calcium Level 8.4 mg/dL 8.8-10.2 [facility] ([facility]) ID Date Data Source [id number] 11/03/2019 11:31:59 AM EST [facility] Name Value Range Interpretation Code Description Data Marisela rce(s) Supporting Document(s) &PDF [facility] QWAZWy8gAiDBWgEh64/HLMsiWZQpc2PxJBabFIq8PVrnANChE2RjcIfzDPUPWXiKROuJBpHKTW9AED6q oRX [file] jXIbpeKdaRODFLA/DTzqYrrmg9Lbj4wJ9zi9jL4IiIoSdg2C8fXxbtfs4J6tgY5EyfBg/WQKQtN05/Case Monitor [file] AgICAgICAgICAgICAgICAgICAgICAgICAgICAgICAg YXNhAOUxNNYcGPJdSLBgOC6YDGFtAFWiBIOlRPMaUPAkRPBvPFIiMAWqENDaZKDyRBCcLOVdOSBkXXOv VFUzZQPwPSKaDOAxULWqGWZtYEMuDVJhGTIqANIlBCJwOCYuURCgZRIqGARbNHDgPHWeNMQqVEXcQK4E ICAgICAgICAgICAgICAgICAgICAgICAgICAgICAgIC AgICAgICAgICAgICAgICAgICAgICAgICAgICAgICAgICAgICAgICAgICAgICAgICAgICAgICAgICAgIC NrLCYdSBVnNT6NSNSgTAPhBDXjHYNdDIFlQGMiXODnSZGyOGHeYDCaTVHbLVVdBHGlTTYuZYNeBXTyTQ AgICAgICAgICAgICAgICAgICAgICAgICAgICAgICAg JUGhHRUmKJNkPAWaEVHrGIHnCU9EHHBhEUZwHPKxYIKfMNGtPIYuXTUtPFQmUNFmATCkJICcZUCvQVSf ICAgICAgICAgICAgICAgICAgICAgICAgICAgICAgICAgICAgICAgICAgICAgICAgICAgICAgICAgICAg IC8FBLKfLYOhETJpEZIiVZJwKIYaKGJjRBGgRTUfUA AgICAgICAgICAgICAgICAgICAgICAgICAgICAgICAgICAgICAgICAgICAgICAgICAgICAgICAgICAgIC HzGKLaJJUtGNSvMM5SBGApVBRwKPKcODXkHOUvWJNgJBPfHKQjNDCoAFUaYDSyRUIjPXNvSPHaJEZaPB AgICAgICAgICAgICAgICAgICAgICAgICAgICAgICAg TJKuLURgWVKhMQLxPBJfDBEsQGSiJU9PFVXiVALoGUMyOWUzJWZaBPFdCHTrJCLpRJXcANOtOTTgHNAi ICAgICAgICAgICAgICAgICAgICAgICAgICAgICAgICAgICAgICAgICAgICAgICAgICAgICAgICAgICAg IZNmXS9NBVHiYLQqADGgOVQbDUPqELUgXJJiJDWqPE AgICAgICAgICAgICAgICAgICAgICAgICAgICAgICAgICAgICAgICAgICAgICAgICAgICAgICAgICAgIC MgQEFeLSFlWOEpEDHpSR5HNVAqHBXkDFQjZMGcLVWxPADwBDHlYBPgAIVbBIJkLHBeLQYrVICtPYGfAS AgICAgICAgICAgICAgICAgICAgICAgICAgICAgICAg UNFxCLMgQIYeNDJgUYRjNQTgXEBcVSAlSZ9TPA72tNGeh6U1FYBsGQ6dqny/Cd2CQGjiplTibNVqWW0N KgBtBP1xzk2XXvLoQM4xwn8YWPiCNuTqG8O9iCZgKMEnJIGJNrUgD90zGTazRh66UXqfRZXoPoXoZPh1 Ox0PTnMbP3uqRMGvMpE6AILoCxS2UUSxAcKbPKzqRN 5Yh0NfgDRcMYc+Jn2LRV9os2FeCHwdCsBgEI8hwt2ESKgCWdYuW5A6vTPzV0G2JJnoXl9CNCFqIPQcTa PiVDYPYHymVK9ZGP6nzxV4TV0ClPOsFCVsKLCtwRPrEXa5Z78lgHFjXLzoXF9DPZB+Starla+Fd9OCQBaKW AcMOBgMoHnZCREUnBnD33nuNSyRJBpTDFfGTOrWa8B DRRfA8AtgpStpFlisuSiHGEaOLQQZC5XDXticySmeBSzwSbkGL05tJlqFL3IGh3ZTaDsLX2yur1SpMWp Oy8LEWCyNG2JFGQsLLFaDRPkVYH0LNSfAqVwVQrvNHOmIYCzNBA4GXRwPUCbKC2DXxAfKIYcVIj8XwPx SDZtOHEemx3AMZUzHWX6RPP3BbVeZALaYENsSZrbWG OgMCPaDPiwPPIqUBOdTK6BKnHiGOQpHST5EoMtELYcFXCkys5NWYIoDNNrIYMnWZTsHULwCBHpMBjyFF KqOIO6XUx8AKYmZYYiXI3PKrYdOJRtOJMtNRdcOMXyMDJwsa0YTQVvWFQsTrI9QbTtREGwEWPlRJrhLU VvSMZ3UwS8VYFnODUaBT0XXoIqLFTkLBb5OUVxODCh LYMzwf8VLTKeSNFgUZGtRmKjAIJpMBMnYBtbPYInZIY4RjEgUWAlQLNqGA4QUgUiUHSkRKb3VECgVWHd CITdoe6CUBEiRQMyZsSxTWBaMHUzWNEbHYtcYRNrVBQlFYL8GUIzGDSpPA6NRvGzMEZnOPNoEbubTHSi XHQixv7SWAMbOTUrQASvDIKxCTFfJIZbWPjoIGLlEK Z0WCR4VLKpBTGgPM9BPaCeFLVuFQY5GZpvPEQsZJIgpt9FGNPwLUDjOMB5AbHwGLGoCXPxFBtbKCWtKX H6BHI6ZUXqYHAgTR6ZOsPrBELtKsE5SEQlNKRxWJLtaq3HJZYgDHPiKVR4CySwIEHfZQVsHKshQIPiDO C3QSW3IFNfUAAzHU2MVhIlYOIqTWN7PIJrQGJxSHIi or6IQVCwLWB9OPH1FCWiSDHcEQAkXNgfQRGrBOWgEuNhPGFdTEXmOV2WKvLcVNHlReC1ATKoDSSbJCMw sk2IEGArLRS8BCF9OBUgSYKxQQXzRZyqCMDoVMd5URGoSPCvKKQtIT6TNxVlUWNiGKfqJDCnUCNfJAEj kx8TOWZgAXQ4VOD2HuWiHNOkRHKxOLi8jkAzxMSdIY r1VW0PP8HrotHhYxUHDe6Uk189TARfJVLxTs2HX5yhPf4uZLYqORNSNn4OJTf0PHZbY5M5LXIeULw1TA AfTBCmCcVrFZZ3B4CsPXS3OyX+NZo0JBDzRNU5ZSC9DOu4GVW6JuYeADR1SLr5HWN4SzReMZ1hWSFFUh 4+MQexsHMgaUutJLTNTiq7AyX2IOsuZRJJWr6V ID Date Data Source [id number] 10/15/2019 03:04:00 PM EST [facility] ([facility]) Name Value Range Interpretation Code Description Data Marisela rce(s) Supporting Document(s) Chest CT With Contrast Laboratory test result [facility] ([facility]) ID Date Data Source [id number] 10/01/2019 10:42:00 AM EST [facility] ([facility]) Name Value Range Interpretation Code Description Data Marisela rce(s) Supporting Document(s) Glucose [Mass/volume] in Serum or Plasma 115 mg/dL 74-99 [facility] ([facility]) 100-125 mg/dL PRE-DIABETES/FASTING >126 mg/dL DIABETES/FASTING Urea nitrogen [Mass/volume] in Serum or Plasma 15 mg/dL 7-18 [facility] ([facility]) Creatinine 0.9 mg/dL 0.6-1.3 [facility] Chloride [Moles/volume] in Serum or Plasma 105 meq/L 98-107 [facility] ([facility]) Potassium [Moles/volume] in Serum or Plasma 3.8 meq/L 3.5-5.1 [facility] Sodium [Moles/volume] in Serum or Plasma 144 meq/L 136-145 [facility] Carbon dioxide, total [Moles/volume] in Serum or Plasma 31 meq/L 21 -32 [facility] ([facility]) Glomerular filtration rate/1.73 sq M pre dicted among blacks [Volume Rate/Area] in Serum or Plasma by Creatinine-based formula (MDRD) Laboratory test result [facility] ([facility]) <content>CHRONIC KIDNEY DISEASE STAGING PER NKF</content>
<content></content>
<content>STAGE I & II GFR >= 60 NORMAL TO MILDLY DECREASED</content>
<content>STAGE III GFR 30-59 MODERATELY DECREASED</content>
<content>STAGE IV GFR 15-29 SEVERELY DECREASED</content>
<content>STAGE V GFR <15 VERY LITTLE GFR LEFT</content>
<content>ESRD GFR <15 ON ASSISTANT BROKER</content>
<content></content> Calcium [Mass/volume] in Serum or Plasma 9.0 mg/dL 8.5-10.1 [facility] ([facility]) Glomerular filtration rate/1.73 sq M pre dicted among non-blacks [Volume Rate/Area] in Serum or Plasma by Creatinine-based formula (MDRD) 60 mL/min [facility] ([facility]) ID Date Data Source [id number] 08/26/2019 09:47:00 AM EST [facility] ([facility] Name Value Range Interpretation Code Description Data Marisela rce(s) Supporting Document(s) Cholesterol in HDL [Mass/volume] in Serum or Plasma 51 mg/dL 35-60 [facility]) Cholesterol [Mass/volume] in Serum or Plasma 246 mg/dL 131-200 [facility] ([facility]) Triglyceride [Mass/volume] in Serum or Plasma 151 mg/dL 30-150 [facility] Cholesterol in LDL [Mass/volume] in Serum or Plasma by calcu lation 165 CALC 50-159 [facility]) ID Date Data Source [id number] 08/26/2019 09:47:00 AM EST [facility] ([facility]) Name Value Range Interpretation Code Description Data Marisela rce(s) Supporting Document(s) Glucose [Mass/volume] in Serum or Plasma 93 mg/dL 74-99 [facility] ([facility]) 100-125 mg/dL PRE-DIABETES/FASTING >126 mg/dL DIABETES/FASTING Urea nitrogen [Mass/volume] in Serum or Plasma 14 mg/dL 7-18 [facility] ([facility]) Creatinine 0.9 mg/dL 0.6-1.3 [facility] ([facility]) Sodium [Moles/volume] in Serum or Plasma 143 meq/L 136-145 [facility] ([facility]) Chloride [Moles/volume] in Serum or Plasma 103 meq/L 98-107 [facility] ([facility]) Carbon dioxide, total [Moles/volume] in Serum or Plasma 32 meq/L 21 -32 [facility] ([facility]) Potassium [Moles/volume] in Serum or Plasma 3.9 meq/L 3.5-5.1 [facility] ([facility]) Alkaline phosphatase isoenzyme [Units/volume] in Serum or Pl asma 74 mg/dL 46-116 [facility] ([facility]) Calcium [Mass/volume] in Serum or Plasma 9.0 mg/dL 8.5-10.1 [facility] ([facility]) Total Bilirubin 0.7 mg/dL 0.2-1.0 [facility] ([facility]) Alanine aminotransferase [Enzymatic activity/volume] in Seru m or Plasma 20 U/L 12-78 [facility] ([facility]) Aspartate aminotransferase [Enzymatic activity/volume] in Serum or Plasma 16 U/L 15-37 [facility] ([facility] ) Albumin [Mass/volume] in Serum or Plasma 3.8 g/dL 3.4-5.0 [facility] ([facility]) Proteinase 3 Ab [Units/volume] in Serum 7.3 g/dL 6.4-8.2 [facility] ([facility]) Glomerular filtration rate/1.73 sq M pre dicted among non-blacks [Volume Rate/Area] in Serum or Plasma by Creatinine-based formula (MDRD) 60 mL/min [facility] ([facility]) A/G Ratio 1.09 CALC 1.00-1.90 [facility] ([facility]) Glomerular filtration rate/1.73 sq M pre dicted among blacks [Volume Rate/Area] in Serum or Plasma by Creatinine-based formula (MDRD) Laboratory test result [facility] <content>CHRONIC KIDNEY DISEASE STAGING PER NKF</content>
<content></content>
<content>STAGE I & II GFR >= 60 NORMAL TO MILDLY DECREASED</content>
<content>STAGE III GFR 30-59 MODERATELY DECREASED</content>
<content>STAGE IV GFR 15-29 SEVERELY DECREASED</content>
<content>STAGE V GFR <15 VERY LITTLE GFR LEFT</content>
<content>ESRD GFR <15 ON ASSISTANT BROKER</content>
<content></content> ID Date Data Source [id number] 08/26/2019 09:47:00 AM EST [facility] ([facility]) Name Value Range Interpretation Code Description Data Marisela rce(s) Supporting Document(s) Leukocytes [#/volume] in Blood by Automated count 4.7 x10*3/UL 4.1-10 .9 [facility] ([facility] Hemoglobin [Mass/volume] in Blood 12.2 g/dL 12.0-18.0 [facility] Erythrocytes [#/volume] in Blood by Automated count 4.16 x10*6/UL 4.2 0-6.30 [facility] Hematocrit [Volume Fraction] of Blood by Automated count 35.9 % 3 7.0-51.0 [facility] MCH 29.3 pg 26.0-32.0 [facility] MCHC 33.9 g/dL 31.0-38.0 [facility] MCV 86.3 fL 80.0-97.0 [facility] Erythrocyte distribution width [Ratio] by Automated count 13.1 % 11.6-13.7 [facility] ([facility]) Platelets [#/volume] in Blood by Automated count 121 x10*3/UL 140-440 [facility] ([facility]) MPV 9.3 FL 7.8-11.0 [facility]) Lymph % 21.3 % 10.0-58.5 [facility]) Mid % 6.4 % 1.7-9.3 [facility]) Neut % 72.3 % 37.0-92.0 [facility] Lymph # 1.0 x10*3/UL 0.6-4.1 [facility] ([facility]) Neut # 3.4 x10*3/UL 2.0-7.8 [facility] ([facility]) Mid # 0.3 x10*3/UL 0.1-0.6 [facility] ([facility]) Procedure Vital Signs ID Date Data Source [id number] Name Value Range Interpretation Code Description Data Source(s) Body temperature 97.0 [degF] 97.0 [degF] [facility] Body weight 65.318 kg 65.318 kg [facility]) Body mass index (BMI) [Ratio] 25.5 kg/m2 25.5 k g/m2 [facility] ([facility]) Heart rate 64 /min 64 /min [facility] ([facility]) Diastolic blood pressure 70 mm[Hg] 70 mm[Hg] [facility] Systolic blood pressure 130 mm[Hg] 130 mm[Hg] M [facility] ([facility]) Body weight 144.00 [lb_av] 144.00 [lb_av] [facility] ([facility]) Body height 63 [in_i] 63 [in_i] [facility] ([facility]) 5'3" Body mass index (BMI) [Ratio] 26.5 kg/m2 26.5 k g/m2 [facility]) Oxygen saturation in Arterial blood by Pulse oximetry 96 % 96 % [facility] ([facility]) RM Air Body weight 147.12 [lb_av] 147.12 [lb_av] [facility] ([facility]) Body height 62.5 [in_i] 62.5 [in_i] [facility] ([facility]) 5'2.50" Heart rate 72 /min 72 /min [facility] ([facility] Diastolic blood pressure 54 mm[Hg] 54 mm[Hg] [facility] ([facility]) Systolic blood pressure 114 mm[Hg] 114 mm[Hg] [facility] ([facility]) Body mass index (BMI) [Ratio] 28.3 kg/m2 28.3 k g/m2 [facility] ([facility]) Oxygen saturation in Arterial blood by Pulse oximetry 94 % 94 % [facility] ([facility]) RM Air Body weight 157.00 [lb_av] 157.00 [lb_av] [facility] ([facility]) Body height 62.5 [in_i] 62.5 [in_i] [facility] ([facility]) 5'2.50" Heart rate 80 /min 80 /min [facility] ([facility]) Diastolic blood pressure 56 mm[Hg] 56 mm[Hg] [facility] ([facility]) Systolic blood pressure 108 mm[Hg] 108 mm[Hg] [facility] ([facility]) Body mass index (BMI) [Ratio] 28.6 kg/m2 28.6 k g/m2 [facility] ([facility]) Oxygen saturation in Arterial blood by Pulse oximetry 96 % 96 % [facility] ([facility]) RM Air Body weight 159.00 [lb_av] 159.00 [lb_av] [facility] ([facility]) Body height 62.5 [in_i] 62.5 [in_i] [facility] ([facility]) 5'2.50" Heart rate 76 /min 76 /min [facility] ([facility]) Diastolic blood pressure 56 mm[Hg] 56 mm[Hg] [facility] ([facility]) Systolic blood pressure 110 mm[Hg] 110 mm[Hg] [facility] ([facility]) Body mass index (BMI) [Ratio] 29.2 kg/m2 29.2 k g/m2 [facility] ([facility]) Oxygen saturation in Arterial blood by Pulse oximetry 97 % 97 % [facility] ([facility]) RM Air Body weight 162.00 [lb_av] 162.00 [lb_av] [facility] ([facility]) Body height 62.5 [in_i] 62.5 [in_i] [facility] ([facility]) 5'2.50" Heart rate 76 /min 76 /min [facility] ([facility]) Diastolic blood pressure 50 mm[Hg] 50 mm[Hg] [facility] ([facility]) Systolic blood pressure 130 mm[Hg] 130 mm[Hg] [facility] ([facility]) Body mass index (BMI) [Ratio] 29.7 kg/m2 29.7 k g/m2 [facility] ([facility]) Oxygen saturation in Arterial blood by Pulse oximetry 93 % 93 % [facility] ([facility]) RM Air Body weight 165.00 [lb_av] 165.00 [lb_av] [facility] ([facility]) Body height 62.5 [in_i] 62.5 [in_i] [facility] ([facility]) 5'2.50" Heart rate 81 /min 81 /min [facility] ([facility]) Diastolic blood pressure 62 mm[Hg] 62 mm[Hg] [facility] ([facility]) Systolic blood pressure 122 mm[Hg] 122 mm[Hg] [facility] ([facility]) Body mass index (BMI) [Ratio] 29.7 kg/m2 29.7 k g/m2 [facility] ([facility]) Body weight 165.00 [lb_av] 165.00 [lb_av] [facility] ([facility]) Body height 62.5 [in_i] 62.5 [in_i] [facility] ([facility]) 5'2.50" Heart rate 72 /min 72 /min [facility] ([facility]) Diastolic blood pressure 68 mm[Hg] 68 mm[Hg] [facility] ([facility]) Systolic blood pressure 122 mm[Hg] 122 mm[Hg] [facility] ([facility]) Body mass index (BMI) [Ratio] 30.4 kg/m2 30.4 k g/m2 [facility]) Oxygen saturation in Arterial blood by Pulse oximetry 98 % 98 % [facility]) Air Body weight 169.00 [lb_av] 169.00 [lb_av] [facility] ([facility]) Body height 62.5 [in_i] 62.5 [in_i] [facility] ([facility]) 5'2.50" Heart rate 82 /min 82 /min [facility]) Diastolic blood pressure 70 mm[Hg] 70 mm[Hg] [facility] ([facility]) Systolic blood pressure 140 mm[Hg] 140 mm[Hg] [facility] ([facility]) Body mass index (BMI) [Ratio] 30.2 kg/m2 30.2 k g/m2 [facility]) Oxygen saturation in Arterial blood by Pulse oximetry 98 % 98 % [facility] ([facility]) Body weight 168.00 [lb_av] 168.00 [lb_av] [facility] Body height 62.5 [in_i] 62.5 [in_i] [facility] ([facility]) 5'2.50" Heart rate 72 /min 72 /min [facility]) Diastolic blood pressure 60 mm[Hg] 60 mm[Hg] [facility] ([facility]) Systolic blood pressure 152 mm[Hg] 152 mm[Hg] [facility] ([facility])
--- NOTE | 2020-10-12 08:43 | ROOR ---
Patient Name: Hawa Arita Procedure Date: 10/12/2020 8:25 AM Date of : 1935 Age: 85 Room: [place]02 Gender: Female Note Status: Finalized Procedure: Upper GI endoscopy Indications: Epigastric abdominal pain Providers: Reed Bailey MD Referring MD: Nirmala Ho DO Requesting Provider: Medicines: Monitored Anesthesia Care Complications: No immediate complications. Procedure: Pre-Anesthesia Assessment: - The heart rate, respiratory rate, oxygen saturations, blood pressure, adequacy of pulmonary ventilation, and response to care were monitored throughout the procedure. The Endoscope was introduced through the mouth, and advanced to the second part of duodenum. The upper GI endoscopy was accomplished without difficulty. The patient tolerated the procedure well. Findings: The Z-line was regular and was found 40 cm from the incisors. No other significant abnormalities were identified in a careful examination of the stomach. The exam of the duodenum was otherwise normal. Impression: - Z-line regular, 40 cm from the incisors. - No specimens collected. - The examination was otherwise normal. Recommendation: - Patient has a contact number available for emergencies. The signs and symptoms of potential delayed complications were discussed with the patient. Return to normal activities tomorrow. Written discharge instructions were provided to the patient. - Resume previous diet. - Discharge patient to home. - Continue present medications. - Return to referring physician. - The findings and recommendations were discussed with the patient. Procedure Code(s): --- Professional --- 98083, Esophagogastroduodenoscopy, flexible, transoral; diagnostic, including collection of specimen(s) by brushing or washing, when performed (separate procedure) Diagnosis Code(s): --- Professional --- R10.13, Epigastric pain CPT copyright 2019 [employer]. All rights reserved. The codes documented in this report are preliminary and upon erecting engineer review may be revised to meet current compliance requirements. Reed Bailey MD Reed Bailey MD 10/12/2020 8:43:12 AM Electronically signed by Reed Bailey MD Number of Addenda: 0 Note Initiated On: 10/12/2020 8:25 AM Estimated Blood Loss: Estimated blood loss: none.
[2020-10-12 09:00] VITALS: BP 169/74
== END 2020-10-12 09:03 | disposition home or self-care (01) ==
LOC: M OPP 07:48
PROVIDERS: ATTEND Internal Medicine Gastroenterology
DX: R10.13 Epigastric pain (principal); I10 Essential (primary) hypertension; E78.5 Hyperlipidemia, unspecified; R60.0 Localized edema; M19.90 Unspecified osteoarthritis, unspecified site; M81.0 Age-related osteoporosis without current pathological fracture; J45.909 Unspecified asthma, uncomplicated; G47.30 Sleep apnea, unspecified; Z87.891 Personal history of nicotine dependence; Z79.01 Long term (current) use of anticoagulants; Z79.51 Long term (current) use of inhaled steroids; Z79.899 Other long term (current) drug therapy

== ENCOUNTER → 2020-12-07 | Outpatient (REF) | payer MEDICARE ==
[~2020-12-07] MED LIST changes: -LIDOCAINE 2% 100MG/5ML SDV (FOR ANES.) As Ordered ONE; -NS 1,000 ML IV ONE; -propofoL 200 MG/20 ML VIAL As Ordered ONE
== END ==
LOC: M LAB REF 16:29
PROVIDERS: ATTEND Internal Medicine
DX: R63.4 Abnormal weight loss (principal); R10.9 Unspecified abdominal pain; R78.89 Finding of other specified substances, not normally found in blood

== ENCOUNTER → 2020-12-18 | Outpatient (CLI) | payer MEDICARE ==
[~2020-12-18] MED LIST changes: +GASTROGRAFIN SOLUTION 30ML (Q9963) As Ordered ONE; +ISOVUE-370 76% 100ML VIAL As Ordered ONE
--- NOTE | 2020-12-21 05:01 | REP ---
INDICATION: ABNORMAL WEIGHT LOSS,UNSPECIFIED ABDOMINAL PAIN. COMPARISON: 07/18/2012 TECHNIQUE: Axial contrast-enhanced images from the lung bases to the pubic symphysis using oral and 100 cc Isovue 370 intravenous contrast material. Coronal and sagittal reformations obtained. This CT examination was performed using the following dose reduction techniques: Automated exposure control, adjustment of mA and/or kv according to the patient's size, and the use of iterative reconstruction technique. FINDINGS: Lung dumas are compared to 10/24/[address] and current examination demonstrates patchy ill-defined areas of small consolidation along with subtle ground-glass opacities and "tree in bud" infiltrative changes primarily noted at the right lower lobe and to a lesser extent lingula and right middle lobe. Findings are most compatible with an acute process including pneumonia and require further investigation/correlation/follow-up. Liver, spleen, pancreas, and bilateral adrenal glands are normal. Patient is noted to be status post cholecystectomy. The left kidney includes a stable 9 mm upper pole cyst while the right kidney includes slightly enlarged, 2.3 cm medial upper pole cyst and cortical scarring suggesting prior partial nephrectomy for cystic lesion. The enteric system including stomach, small, and large bowel appears normal. No evidence for obstruction or acute inflammatory process. Normal terminal ileum and cecum are identified in the right lower quadrant. Scattered colonic diverticula noted without acute diverticulitis. Pelvis demonstrates normal bladder and prior hysterectomy.. No ascites. No free air. No intraperitoneal or retroperitoneal adenopathy. Abdominal aorta and vasculature demonstrate atherosclerotic changes without aneurysm or dissection. Musculoskeletal structures are intact and without acute osseous abnormality. IMPRESSION: 1. Acute changes at the lung bases (right greater than left). Findings likely represent acute pneumonia however further pathology cannot be excluded. Correlation and short-term follow-up Chest CT is recommended. 2. No obvious acute abdominopelvic pathology appreciated. 3. No ascites, focal inflammatory stranding, or adenopathy. 4. Chronic nonacute findings include renal cyst, diverticulosis and postsurgical changes related to prior cholecystectomy, partial right nephrectomy, and hysterectomy. <Electronically signed by Vega Sandoval > 12/21/20 [id number]
== END ==
LOC: M RAD 16:27
PROVIDERS: ATTEND Internal Medicine
DX: R10.9 Unspecified abdominal pain (principal); R63.4 Abnormal weight loss
CPT/HCPCS: 74178; Q9963; Q9967

== ENCOUNTER → 2021-01-05 | Outpatient (CLI) | payer MEDICARE ==
[~2021-01-05] MED LIST changes: -GASTROGRAFIN SOLUTION 30ML (Q9963) As Ordered ONE; -ISOVUE-370 76% 100ML VIAL As Ordered ONE
--- NOTE | 2021-01-05 15:46 | REP ---
INDICATION: OPACITY RIGHT LUNG BASE. Other nonspecific abnormal finding of lung field. COMPARISON: Comparison CT study October 24, 2019.. TECHNIQUE: Helical scanning is acquired. 3 mm axial images are generated. Coronal and sagittal MPR and coronal MIP images are generated. FINDINGS: There is an inflammatory infiltrate in the right lower lobe with patchy peribronchovascular alveolar and interstitial opacification. This is new when compared with the October 24, 2019 study. There is some patchy infiltrate involving the right middle lobe as well however this is more subtle. And there is 1 focus of peribronchovascular ground-glass opacity in the right upper lobe laterally. These changes are most compatible with inflammatory disease, pneumonia. there is a noncalcified 3 mm nodule in the right upper lobe on page 19 of 103 series 201 of today's study which is unchanged from the October 24, 2019 study. There are linear fibrotic or platelike atelectasis changes in the left lower lobe anteriorly. No pleural effusion is seen. There is a small quantity of pericardial fluid visible. This is unchanged. No adrenal lesion is seen. Vascular calcification is again observed. No hilar or mediastinal mass or adenopathy is observed. IMPRESSION: Patchy areas of alveolar and interstitial infiltrate right lower lobe right middle lobe and right upper lobe consistent with pneumonia. Stable 3 mm right upper lobe nodule. <Electronically signed by Chapin Ronquillo > 01/05/21 [id number]
== END ==
LOC: M RAD 14:36
PROVIDERS: ATTEND Internal Medicine
DX: R91.8 Other nonspecific abnormal finding of lung field (principal)

== ENCOUNTER → 2021-02-01 | Outpatient (REF) | payer MEDICARE | LOC: M LAB REF 16:32 | PROVIDERS: ATTEND Internal Medicine | DX: I48.91 Unspecified atrial fibrillation (principal) ==

== ENCOUNTER → 2021-02-02 | Outpatient (CLI) | payer MEDICARE ==
--- NOTE | 2021-02-02 11:45 | REP ---
INDICATION: SHORTNESS OF BREATH COMPARISON: 11/05/2019 TECHNIQUE: PA and lateral. FINDINGS: Chronic COPD/emphysematous changes. Mild cardiomegaly. No obvious acute consolidation, effusion, or pneumothorax. Skeletal structures demonstrate osteopenia and age-related degenerative changes. Evidence for prior cholecystectomy. IMPRESSION: Chronic changes suggesting COPD. No obvious focal consolidation. <Electronically signed by Vega Sandoval > 02/02/21 [id number]
== END ==
LOC: M WUC 11:07
PROVIDERS: ATTEND Internal Medicine
DX: R06.02 Shortness of breath (principal); J44.9 Chronic obstructive pulmonary disease, unspecified

== ENCOUNTER → 2021-02-23 | Outpatient (CLI) | payer MEDICARE ==
--- NOTE | 2021-02-24 03:10 | REP ---
INDICATION: BRONCHIECTASIS WITH ACUTE EXACERBATION COMPARISON: 02/02/2021, 02/20/2019 TECHNIQUE: PA and lateral. FINDINGS: The mediastinum and cardiac silhouette are normal. The lung dumas suggest chronic appearing changes without significant focal consolidation. Lateral view suggest blunting of the posterior costophrenic angles less likely representing effusions and correlation is recommended. No pneumothorax. The skeletal structures are intact and normal. IMPRESSION: Presumed chronic changes. <Electronically signed by Vega Sandoval > 02/24/21 [id number]
== END ==
LOC: M WUC 12:20
PROVIDERS: ATTEND Nurse Practitioner Adult Health
DX: J47.1 Bronchiectasis with (acute) exacerbation (principal)

== ENCOUNTER → 2021-04-21 | Outpatient (REF) | payer MEDICARE | LOC: M LAB REF 13:29 | PROVIDERS: ATTEND Nurse Practitioner Adult Health | DX: I48.0 Paroxysmal atrial fibrillation (principal) ==

== ENCOUNTER 2021-04-29 15:06 | Emergency (ER) | payer OTHER, MEDICARE ==
[~2021-04-29] VITALS: Ht 157.5 cm; Wt 61.0 kg
[2021-04-29] MEDS ORDERED: BOOSTRIX/ADACEL VACCINE (DIPHTH/PERTUSS/ACELL/TETANUS) 0.5ML SYR IM ONE (16:35)
[2021-04-29] MEDS ORDERED: AUGM875T28 PO (16:42)
[2021-04-29 16:53] VITALS: BP 172/74
== END 2021-04-29 16:58 | disposition home or self-care (01) ==
LOC: M ED 15:06
DX: S51.851A Open bite of right forearm, initial encounter (principal); W55.01XA Bitten by cat, initial encounter; Y92.009 Unspecified place in unspecified non-institutional (private) residence as the place of occurrence of the external cause; Y93.9 Activity, unspecified; Y99.9 Unspecified external cause status; I48.91 Unspecified atrial fibrillation; I10 Essential (primary) hypertension; E78.5 Hyperlipidemia, unspecified; J45.909 Unspecified asthma, uncomplicated; G47.33 Obstructive sleep apnea (adult) (pediatric); Z79.01 Long term (current) use of anticoagulants; Z79.899 Other long term (current) drug therapy

== ENCOUNTER → 2021-07-27 | Outpatient (CLI) | payer MEDICARE ==
[~2021-07-27] MED LIST changes: +AUGM875T28 PO
--- NOTE | 2021-07-27 14:10 | REP ---
INDICATION: ABN FINDING OF LUNG COMPARISON: Multiple the latest 01/05/2021 also without contrast TECHNIQUE: Standard helical technique without contrast FINDINGS: There is no significant change in appearance of the mediastinum or pulmonary hakan. There is pericardial thickening status quo. There are no pleural effusions. There is no significant change in appearance of the imaged upper abdomen. There is a right renal cyst status quo. There is no significant change in appearance of the osseous structures. Evaluation of the lung dumas shows new extensive scattered asymmetric interstitial and airspace opacities particularly in the lung bases and right greater than left. Some of these densities are somewhat confluent. There is cylindrical bronchiectasis status quo. IMPRESSION: Worsened abnormal lung field opacities as described above. Close follow-up is suggested. <Electronically signed by Gray Guevara > 07/27/21 [id number]
== END ==
LOC: M RAD 13:17
PROVIDERS: ATTEND Nurse Practitioner Adult Health
DX: R91.8 Other nonspecific abnormal finding of lung field (principal)

== ENCOUNTER → 2021-08-03 | Outpatient (REF) | payer MEDICARE | LOC: M LAB REF 16:59 | PROVIDERS: ATTEND Nurse Practitioner Adult Health | DX: J47.1 Bronchiectasis with (acute) exacerbation (principal) ==

== ENCOUNTER → 2021-10-06 | Outpatient (CLI) | payer MEDICARE | LOC: M RAD 14:48 | PROVIDERS: ATTEND Nurse Practitioner Adult Health | DX: R91.8 Other nonspecific abnormal finding of lung field (principal) ==

== ENCOUNTER → 2022-04-27 | Outpatient (REF) | payer MEDICARE | LOC: M LAB REF 16:21 | PROVIDERS: ATTEND Nurse Practitioner Adult Health | DX: I48.0 Paroxysmal atrial fibrillation (principal) ==

== ENCOUNTER → 2022-05-10 | Outpatient (CLI) | payer MEDICARE | LOC: M WUC 11:39 | PROVIDERS: ATTEND Student in an Organized Health Care Education/Training Program | DX: M25.532 Pain in left wrist (principal) ==

== ENCOUNTER → 2022-10-04 | Outpatient (REF) | payer MEDICARE ==
[~2022-10-04] MED LIST changes: -POTA10CA32; +POTA10CA33
[2022-10-04 18:27] LABS: RSV AMPLIFICATION NEGATIVE (NEGATIVE)
== END ==
LOC: M LAB REF 16:14
PROVIDERS: ATTEND Nurse Practitioner Adult Health
DX: J06.9 Acute upper respiratory infection, unspecified (principal)

== ENCOUNTER → 2022-10-04 | Outpatient (CLI) | payer MEDICARE | LOC: M WUC 15:38 | PROVIDERS: ATTEND Nurse Practitioner Adult Health | DX: S60.121A Contusion of right index finger with damage to nail, initial encounter (principal); W18.30XA Fall on same level, unspecified, initial encounter; Y92.009 Unspecified place in unspecified non-institutional (private) residence as the place of occurrence of the external cause ==

== ENCOUNTER → 2022-10-18 | Outpatient (CLI) | payer MEDICARE | LOC: M WUC 15:04 | PROVIDERS: ATTEND Nurse Practitioner Adult Health | DX: J18.9 Pneumonia, unspecified organism (principal) ==

== ENCOUNTER → 2022-11-02 | Outpatient (REF) | payer MEDICARE, OTHER | LOC: M LAB REF 09:59 | PROVIDERS: ATTEND Nurse Practitioner Adult Health | DX: D56.8 Other thalassemias (principal) ==

== ENCOUNTER → 2022-12-19 | Outpatient (CLI) | payer MEDICARE | LOC: M RAD 14:50 | PROVIDERS: ATTEND Nurse Practitioner Adult Health | DX: J18.9 Pneumonia, unspecified organism (principal) ==

== ENCOUNTER → 2023-02-02 | Outpatient (CLI) | payer MEDICARE ==
[~2023-02-02] MED LIST changes: +ALBU2.5V10 NEB; -ALBU8.5H; +ALBU8.5H PO; -BREO1INH3; +BREO1INH3 INH; +DIGO0.123 PO; +FERR324T21 PO; -FURO20TA2; +FURO20TA2 PO; -LEVOTAB10; +LEVOTAB10 PO; +LOSA50TA28 PO; -MESA400C2; +MESA400C2 PO; +MONT10TA97 PO; +VITA100093 PO; +[UNRECOGNIZED DRUG - CODE] PO
== END ==
LOC: M WUC 15:19
PROVIDERS: ATTEND Nurse Practitioner Family
DX: J20.9 Acute bronchitis, unspecified (principal); R05.9 Cough, unspecified

== ENCOUNTER 2023-02-12 16:42 | Inpatient (IN) | payer MEDICARE ==
[~2023-02-12] VITALS: Ht 157.5 cm; Wt 61.8 kg
[2023-02-12 11:10] VITALS: BP 146/50; TEMP 97.9; O2SAT 96
[~2023-02-12 16:42] MED LIST changes: -ALBU2.5V10 NEB; -DIGO0.123 PO; -FERR324T21 PO; -LOSA50TA28 PO; -MONT10TA97 PO; -POTA10CA33; +POTA10CA60; -VITA100093 PO; -[UNRECOGNIZED DRUG - CODE] PO
[2023-02-12] MEDS ORDERED: IPRATROPIUM 0.5MG/ALBUTEROL 2.5MG INH SOL UD 3ML (DUONEB) NEB ONE (17:10)
[2023-02-12] MEDS ORDERED: methylPREDNISolone 125MG 2ML VIAL IV ONE (17:20)
[2023-02-12 18:06] LABS: VENOUS BASE EXCESS -0.4 (-2.0-2.0); VENOUS HCO3 25.2 MMOL/L (23.0-27.0); VENOUS O2 SATURATION 61.1 % (60.0-80.0); VENOUS PARTIAL PRESSURE CO2 45.4 mmHg (38.0-50.0); VENOUS PH 7.362 UNITS (7.330-7.430); VENOUS STANDARD HCO3 23.6 MMOL/L; VENOUS TOTAL CO2 26.6 MMOL/L (24.0-28.0)
[2023-02-12 18:15] LABS: BASO % 0.3 % (0.0-1.0); EOS # 0.1 10^3/uL (0.0-0.5); EOS % 0.6 % (0.0-3.0); HEMATOCRIT 26.9 % (36.0-47.0); HEMOGLOBIN 8.1 g/dl (12.0-15.5); LYMPH # 1.8 10^3/uL (1.5-5.0); LYMPH % 15.9 % (24.0-44.0); MEAN CORPUSCULAR HEMOGLOBIN 27.5 pg (27.0-33.0); MEAN CORPUSCULAR HGB CONC 30.1 g/dl (32.0-36.5); MEAN CORPUSCULAR VOLUME 91.2 fl (80.0-96.0); MONO # 0.7 10^3/uL (0.0-0.8); MONO % 5.8 % (2.0-8.0); NEUTROPHILS # 8.7 10^3/uL (1.5-8.5); NEUTROPHILS % 76.8 % (36.0-66.0); PLATELET COUNT, AUTOMATED 210 10^3/uL (150-450); RED BLOOD COUNT 2.95 10^6/uL (4.00-5.40); WHITE BLOOD COUNT 11.3 10^3/uL (4.0-10.0)
[2023-02-12 18:24] LABS: INR 1.08; PROTHROMBIN TIME 14.2 SECONDS (12.5-14.5)
[2023-02-12 18:47] LABS: DIGOXIN LEVEL 1.1 NG/ML (0.8-2.0); MB/CK RELATIVE INDEX 2.17 (< OR =4)
[2023-02-12 18:48] LABS: ALBUMIN 3.2 G/DL (3.2-5.2); BILIRUBIN,DIRECT 0.1 MG/DL (<0.4); BILIRUBIN,TOTAL 0.4 MG/DL (0.3-1.2); CREATININE FOR GFR 1.07 MG/DL (0.55-1.30); GLOMERULAR FILTRATION RATE 51.5 (>32); POTASSIUM SERUM 4.5 MMOL/L (3.5-5.1); TOTAL PROTEIN 6.2 G/DL (5.7-8.2)
[2023-02-12 18:49] LABS: THYROID STIMULATING HORMONE 2.657 uIU/ML (0.55-4.78)
[2023-02-12] MEDS ORDERED: PANTOPRAZOLE 40MG VIAL IV ONE (19:00)
[2023-02-12] MEDS ORDERED: ISOVUE-370 76% 100ML VIAL As Ordered ONE (19:02)
[2023-02-12 19:33] LABS: CK-MB VALUE MASS < 1.0 NG/ML (<3.6); CPK CREATINE PHOSPHOKINASE 43 U/L (34-145); MB/CK RELATIVE INDEX 2.32 (< OR =4)
[2023-02-12] MEDS ORDERED: [UNRECOGNIZED DRUG - CODE] PO (21:16)
[2023-02-12] MEDS ORDERED: ELIQ5TAB PO (21:16)
[2023-02-12] MEDS ORDERED: SPIR-10 PO (21:16)
[2023-02-12] MEDS ORDERED: PRAV20TA2 PO (21:16)
[2023-02-12] MEDS ORDERED: LOSA50TA28 PO (21:16)
[2023-02-12] MEDS ORDERED: VITA100093 PO (21:16)
[2023-02-12] MEDS ORDERED: ALBU2.5V10 INH (21:16)
[2023-02-12] MEDS ORDERED: DIGO0.123 PO (21:16)
[2023-02-12] MEDS ORDERED: MONT10TA97 PO (21:16)
[2023-02-12] MEDS ORDERED: FERR324T21 PO (21:16)
[2023-02-12] MEDS ORDERED: HOME MED LIST COMPLETE! XX SCH (21:20)
[2023-02-12] MEDS ORDERED: ALBUTEROL SULFATE 2.5MG/0.5ML INH NEB SOLN NEB PRN (22:30)
[2023-02-12 23:10] VITALS: BP 146/50; TEMP 97.9; O2SAT 96
[2023-02-12] MEDS: NS 1,000 ML IV SCH (23:57)
[2023-02-13 00:04] LABS: HEMATOCRIT 26.6 % (36.0-47.0); HEMOGLOBIN 8.1 g/dl (12.0-15.5)
[2023-02-13] MEDS: MESALAMINE 400 MG CAPSULE DELAYED RELEASE (DELZICOL) PO SCH ×2 (01:09→20:44)
[2023-02-13] MEDS: COMBIVENT RESPIMAT 100-20MCG INHALER 4GM INH SCH ×4 (01:50→19:19)
[2023-02-13 06:00] VITALS: BP 131/45; TEMP 97.7; O2SAT 97
[2023-02-13] MEDS ORDERED: FERROUS GLUCONATE 324 MG TAB PO SCH (09:00)
[2023-02-13] MEDS: NS 1,000 ML IV SCH (11:01)
[2023-02-13] MEDS: PANTOPRAZOLE 40MG VIAL IV SCH ×2 (11:02→20:45)
[2023-02-13] MEDS: SPIRONOLACTONE 12.5MG PER 1/2 TABLET PO SCH (11:02)
[2023-02-13] MEDS: DIGOXIN 0.125 MG TAB PO SCH (11:02)
[2023-02-13] MEDS: LOSARTAN 50MG TABLET PO SCH (11:05)
[2023-02-13 11:58] LABS: HEMATOCRIT 28.6 % (36.0-47.0); HEMOGLOBIN 8.6 g/dl (12.0-15.5)
[2023-02-13 12:28] LABS: PERCENT SATURATION 3.9 % (13.2-45.0)
[2023-02-13 12:30] LABS: FERRITIN 21.1 NG/ML (7.3-270.7); FOLATE 13.94 NG/ML (>5.4)
[2023-02-13] MEDS: VITAMIN D 1,000 INTERNATIONAL UNITS TABLET PO SCH (12:55)
[2023-02-13] MEDS: PRAVASTATIN 20 MG TAB PO SCH (12:55)
[2023-02-13 14:00] VITALS: BP 136/42; TEMP 97.5; O2SAT 99
[2023-02-13] MEDS ORDERED: IRON SUCROSE 200 MG in NS 100 ML IV ONE (16:00)
[2023-02-13] MEDS: MONTELUKAST 10 MG TAB PO SCH (20:45)
[2023-02-13 21:23] VITALS: BP 126/47; TEMP 97.2; O2SAT 99
[2023-02-14] VITALS (11 sets, daily range): BP systolic 129–166; BP diastolic 45–57; TEMP 96.4–97.9; O2SAT 95–98
[2023-02-14] MEDS: COMBIVENT RESPIMAT 100-20MCG INHALER 4GM INH SCH ×5 (02:04→23:56)
[2023-02-14] MEDS: NS 1,000 ML IV SCH ×2 (05:18→17:34)
[2023-02-14 06:37] LABS: HEMATOCRIT 23.6 % (36.0-47.0); MEAN CORPUSCULAR HEMOGLOBIN 27.5 pg (27.0-33.0); MEAN CORPUSCULAR HGB CONC 29.7 g/dl (32.0-36.5); MEAN CORPUSCULAR VOLUME 92.5 fl (80.0-96.0); PLATELET COUNT, AUTOMATED 172 10^3/uL (150-450); RED BLOOD COUNT 2.55 10^6/uL (4.00-5.40); WHITE BLOOD COUNT 8.9 10^3/uL (4.0-10.0)
[2023-02-14 07:01] LABS: BLOOD UREA NITROGEN 14 MG/DL (9-23); CALCIUM LEVEL 8.3 MG/DL (8.3-10.6); CARBON DIOXIDE LEVEL 25 MMOL/L (20-31); CHLORIDE LEVEL 112 MMOL/L (98-107); GLOMERULAR FILTRATION RATE > 60.0 (>32); GLUCOSE, FASTING 83 MG/DL (74-106); SODIUM LEVEL 141 MMOL/L (136-145)
[2023-02-14] MEDS: LOSARTAN 50MG TABLET PO SCH (09:00)
[2023-02-14] MEDS: PANTOPRAZOLE 40MG VIAL IV SCH ×2 (10:40→19:50)
[2023-02-14] MEDS: PRAVASTATIN 20 MG TAB PO SCH (10:40)
[2023-02-14] MEDS: VITAMIN D 1,000 INTERNATIONAL UNITS TABLET PO SCH (10:41)
[2023-02-14] MEDS: DIGOXIN 0.125 MG TAB PO SCH (10:41)
[2023-02-14] MEDS: SPIRONOLACTONE 12.5MG PER 1/2 TABLET PO SCH (10:41)
[2023-02-14] MEDS ORDERED: FERROUS SULFATE 325MG TAB PO SCH (14:00)
[2023-02-14] MEDS ORDERED: propofoL 200 MG/20 ML VIAL As Ordered ONE (16:40)
[2023-02-14] MEDS ORDERED: fentaNYL 100 MCG/2 ML INJECTION As Ordered ONE (16:40)
[2023-02-14] MEDS ORDERED: LIDOCAINE 2% 100MG/5ML SDV (FOR ANES.) As Ordered ONE (16:40)
[2023-02-14] MEDS ORDERED: MOM 30ML SUSPENSION UDC PO ONE (17:05)
[2023-02-14] MEDS ORDERED: POLYETHYLENE GLYCOL (MIRALAX) 238GM BOTTLE PO ONE (18:00)
[2023-02-14 18:31] LABS: HEMATOCRIT 29.7 % (36.0-47.0)
[2023-02-14] MEDS: MESALAMINE 400 MG CAPSULE DELAYED RELEASE (DELZICOL) PO SCH (19:50)
[2023-02-14] MEDS: MONTELUKAST 10 MG TAB PO SCH (19:50)
[2023-02-15] VITALS (10 sets, daily range): BP systolic 130–170; BP diastolic 51–72; TEMP 96.4–98.4; O2SAT 95–99
[2023-02-15 05:54] LABS: HEMATOCRIT 26.4 % (36.0-47.0); HEMOGLOBIN 8.2 g/dl (12.0-15.5); MEAN CORPUSCULAR HGB CONC 31.1 g/dl (32.0-36.5); MEAN CORPUSCULAR VOLUME 90.1 fl (80.0-96.0); PLATELET COUNT, AUTOMATED 163 10^3/uL (150-450); RED BLOOD COUNT 2.93 10^6/uL (4.00-5.40)
[2023-02-15] MEDS: NS 1,000 ML IV SCH (06:37)
[2023-02-15] MEDS ORDERED: POLYETHYLENE GLYCOL (MIRALAX) 238GM BOTTLE PO ONE (07:00)
[2023-02-15] MEDS: COMBIVENT RESPIMAT 100-20MCG INHALER 4GM INH SCH (07:34)
[2023-02-15] MEDS: ADVAIR HFA 115/21MCG INHALER INH SCH ×2 (08:00→19:33)
[2023-02-15] MEDS: SPIRONOLACTONE 12.5MG PER 1/2 TABLET PO SCH (09:28)
[2023-02-15] MEDS: PANTOPRAZOLE 40MG VIAL IV SCH ×2 (09:28→20:44)
[2023-02-15] MEDS: VITAMIN D 1,000 INTERNATIONAL UNITS TABLET PO SCH (09:28)
[2023-02-15] MEDS: PRAVASTATIN 20 MG TAB PO SCH (09:28)
[2023-02-15] MEDS: LOSARTAN 50MG TABLET PO SCH (09:31)
[2023-02-15] MEDS: DIGOXIN 0.125 MG TAB PO SCH (09:32)
[2023-02-15] MEDS ORDERED: PILL CUTTER 1 EACH XX PRN (12:45)
[2023-02-15] MEDS ORDERED: FUROSEMIDE 20MG/2ML VIAL IV ONE (12:45)
[2023-02-15] MEDS: CYANOCOBALAMIN 500 MCG TAB PO SCH (13:21)
[2023-02-15] MEDS: IPRATROPIUM 0.5MG/ALBUTEROL 2.5MG INH SOL UD 3ML (DUONEB) NEB SCH ×2 (14:00→19:33)
[2023-02-15] MEDS ORDERED: LIDOCAINE 2% 100MG/5ML SDV (FOR ANES.) As Ordered ONE (16:48)
[2023-02-15] MEDS ORDERED: propofoL 200 MG/20 ML VIAL As Ordered ONE (16:48)
[2023-02-15] MEDS ORDERED: LR 1,000 ML IV SCH (17:30)
[2023-02-15] MEDS ORDERED: ONDANSETRON 4MG 2ML VIAL IV PRN (17:30)
[2023-02-15 19:49] LABS: HEMATOCRIT 29.3 % (36.0-47.0)
[2023-02-15] MEDS: guaiFENesin 200 MG TAB PO SCH (20:43)
[2023-02-15] MEDS: MESALAMINE 400 MG CAPSULE DELAYED RELEASE (DELZICOL) PO SCH (20:43)
[2023-02-15] MEDS: CETIRIZINE (ZyrTEC) 10 MG TAB PO SCH (20:44)
[2023-02-15] MEDS: MONTELUKAST 10 MG TAB PO SCH (20:44)
[2023-02-16 02:00] VITALS: BP 154/52; TEMP 98.2; O2SAT 96
[2023-02-16] MEDS: IPRATROPIUM 0.5MG/ALBUTEROL 2.5MG INH SOL UD 3ML (DUONEB) NEB SCH ×4 (02:25→19:21)
[2023-02-16 06:00] VITALS: BP 150/61; TEMP 98.1; O2SAT 95
[2023-02-16 06:16] LABS: HEMATOCRIT 26.1 % (36.0-47.0); HEMOGLOBIN 8.1 g/dl (12.0-15.5); MEAN CORPUSCULAR HEMOGLOBIN 28.1 pg (27.0-33.0); MEAN CORPUSCULAR VOLUME 90.6 fl (80.0-96.0); PLATELET COUNT, AUTOMATED 161 10^3/uL (150-450); RED BLOOD COUNT 2.88 10^6/uL (4.00-5.40); WHITE BLOOD COUNT 7.9 10^3/uL (4.0-10.0)
[2023-02-16 07:08] LABS: BLOOD UREA NITROGEN 8 MG/DL (9-23); CALCIUM LEVEL 7.7 MG/DL (8.3-10.6); CARBON DIOXIDE LEVEL 27 MMOL/L (20-31); CHLORIDE LEVEL 109 MMOL/L (98-107); GLOMERULAR FILTRATION RATE > 60.0 (>32); GLUCOSE, FASTING 81 MG/DL (74-106); MAGNESIUM LEVEL 1.9 MG/DL (1.8-2.4); PHOSPHORUS LEVEL 4.2 MG/DL (2.4-5.1); POTASSIUM SERUM 3.3 MMOL/L (3.5-5.1); SODIUM LEVEL 144 MMOL/L (136-145)
[2023-02-16] MEDS: ADVAIR HFA 115/21MCG INHALER INH SCH ×2 (07:43→19:21)
[2023-02-16] MEDS ORDERED: VITA500T40 PO (08:10)
[2023-02-16] MEDS ORDERED: POTASSIUM CHLORIDE 10MEQ SR TABLET PO ONE (08:10)
[2023-02-16] MEDS ORDERED: MM S100C PO (08:12)
[2023-02-16] MEDS: PANTOPRAZOLE 40MG VIAL IV SCH ×2 (09:20→21:46)
[2023-02-16] MEDS: CYANOCOBALAMIN 500 MCG TAB PO SCH (09:20)
[2023-02-16] MEDS: VITAMIN D 1,000 INTERNATIONAL UNITS TABLET PO SCH (09:20)
[2023-02-16] MEDS: PRAVASTATIN 20 MG TAB PO SCH (09:21)
[2023-02-16] MEDS: LOSARTAN 50MG TABLET PO SCH (09:22)
[2023-02-16] MEDS: SPIRONOLACTONE 12.5MG PER 1/2 TABLET PO SCH (09:22)
[2023-02-16] MEDS: FUROSEMIDE 20 MG TAB PO SCH (09:22)
[2023-02-16] MEDS: DIGOXIN 0.125 MG TAB PO SCH (09:26)
[2023-02-16 10:00] VITALS: BP 116/57; TEMP 97.9; O2SAT 96
[2023-02-16 14:00] VITALS: BP 130/43; TEMP 98.1; O2SAT 97
[2023-02-16 14:27] LABS: HEMATOCRIT 30.7 % (36.0-47.0); HEMOGLOBIN 9.4 g/dl (12.0-15.5)
[2023-02-16] MEDS: ENOXAPARIN 40MG/0.4ML SYRINGE (J1650 PER 10MG) SC SCH (17:19)
[2023-02-16 18:00] VITALS: BP 152/54; TEMP 98.4; O2SAT 96
[2023-02-16 20:50] VITALS: BP 159/51; TEMP 97.9; O2SAT 94
[2023-02-16] MEDS: guaiFENesin 200 MG TAB PO SCH (21:46)
[2023-02-16] MEDS: MESALAMINE 400 MG CAPSULE DELAYED RELEASE (DELZICOL) PO SCH (21:46)
[2023-02-16] MEDS: MONTELUKAST 10 MG TAB PO SCH (21:46)
[2023-02-16] MEDS: CETIRIZINE (ZyrTEC) 10 MG TAB PO SCH (21:46)
[2023-02-17] MEDS: IPRATROPIUM 0.5MG/ALBUTEROL 2.5MG INH SOL UD 3ML (DUONEB) NEB SCH ×4 (03:04→19:24)
[2023-02-17 05:40] VITALS: BP 146/42; TEMP 97.9; O2SAT 96
[2023-02-17 06:26] LABS: HEMATOCRIT 27.2 % (36.0-47.0); HEMOGLOBIN 8.3 g/dl (12.0-15.5); MEAN CORPUSCULAR HEMOGLOBIN 27.9 pg (27.0-33.0); MEAN CORPUSCULAR HGB CONC 30.5 g/dl (32.0-36.5); MEAN CORPUSCULAR VOLUME 91.3 fl (80.0-96.0); PLATELET COUNT, AUTOMATED 151 10^3/uL (150-450); RED BLOOD COUNT 2.98 10^6/uL (4.00-5.40); WHITE BLOOD COUNT 8.2 10^3/uL (4.0-10.0)
[2023-02-17 06:49] LABS: BLOOD UREA NITROGEN 10 MG/DL (9-23); CALCIUM LEVEL 8.1 MG/DL (8.3-10.6); CARBON DIOXIDE LEVEL 27 MMOL/L (20-31); CHLORIDE LEVEL 110 MMOL/L (98-107); CREATININE FOR GFR 0.94 MG/DL (0.55-1.30); GLOMERULAR FILTRATION RATE 59.8 (>32); GLUCOSE, FASTING 105 MG/DL (74-106); MAGNESIUM LEVEL 1.8 MG/DL (1.8-2.4); PHOSPHORUS LEVEL 3.4 MG/DL (2.4-5.1); POTASSIUM SERUM 3.3 MMOL/L (3.5-5.1); SODIUM LEVEL 142 MMOL/L (136-145)
[2023-02-17 06:51] LABS: CARCINOEMBRYONIC ANTIGEN < 2.0 NG/ML (<2.5)
[2023-02-17] MEDS: GASTROGRAFIN SOLUTION 30ML PO SCH ×2 (07:53→08:37)
[2023-02-17] MEDS: ADVAIR HFA 115/21MCG INHALER INH SCH ×2 (07:57→19:25)
[2023-02-17] MEDS ORDERED: ISOVUE-370 76% 100ML VIAL As Ordered ONE (09:23)
[2023-02-17] MEDS: VITAMIN D 1,000 INTERNATIONAL UNITS TABLET PO SCH (10:00)
[2023-02-17] MEDS: CYANOCOBALAMIN 500 MCG TAB PO SCH (10:00)
[2023-02-17] MEDS: PANTOPRAZOLE 40MG VIAL IV SCH ×2 (10:00→20:19)
[2023-02-17] MEDS: PRAVASTATIN 20 MG TAB PO SCH (10:00)
[2023-02-17] MEDS: SPIRONOLACTONE 12.5MG PER 1/2 TABLET PO SCH (10:01)
[2023-02-17] MEDS: LOSARTAN 50MG TABLET PO SCH (10:01)
[2023-02-17] MEDS: FUROSEMIDE 20 MG TAB PO SCH (10:01)
[2023-02-17] MEDS: FERROUS GLUCONATE 324 MG TAB PO SCH (10:01)
[2023-02-17] MEDS: DIGOXIN 0.125 MG TAB PO SCH (10:02)
[2023-02-17] MEDS ORDERED: FUROSEMIDE 20MG/2ML VIAL IV ONE (12:00)
[2023-02-17] MEDS ORDERED: POTASSIUM CHLORIDE 10MEQ SR TABLET PO ONE (12:00)
[2023-02-17] MEDS ORDERED: MAGNESIUM OXIDE 400MG TAB (MAG-OX) PO ONE (12:00)
[2023-02-17 14:00] VITALS: BP 138/48; TEMP 97.5; O2SAT 97
[2023-02-17] MEDS: guaiFENesin 200 MG TAB PO SCH (20:19)
[2023-02-17] MEDS: MESALAMINE 400 MG CAPSULE DELAYED RELEASE (DELZICOL) PO SCH (20:19)
[2023-02-17] MEDS: CETIRIZINE (ZyrTEC) 10 MG TAB PO SCH (20:19)
[2023-02-17] MEDS: MONTELUKAST 10 MG TAB PO SCH (20:19)
[2023-02-17] MEDS: ENOXAPARIN 40MG/0.4ML SYRINGE (J1650 PER 10MG) SC SCH (20:20)
[2023-02-17 20:58] VITALS: BP 150/41; TEMP 97.9; O2SAT 96
[2023-02-18] MEDS: IPRATROPIUM 0.5MG/ALBUTEROL 2.5MG INH SOL UD 3ML (DUONEB) NEB SCH ×4 (00:16→21:02)
[2023-02-18 06:00] VITALS: BP 145/45; TEMP 97.9; O2SAT 94
[2023-02-18 06:27] LABS: HEMOGLOBIN 8.9 g/dl (12.0-15.5); MEAN CORPUSCULAR HGB CONC 30.7 g/dl (32.0-36.5); MEAN CORPUSCULAR VOLUME 91.2 fl (80.0-96.0); PLATELET COUNT, AUTOMATED 160 10^3/uL (150-450); RED BLOOD COUNT 3.18 10^6/uL (4.00-5.40); WHITE BLOOD COUNT 8.6 10^3/uL (4.0-10.0)
[2023-02-18 07:09] LABS: CALCIUM LEVEL 8.5 MG/DL (8.3-10.6); CREATININE FOR GFR 0.94 MG/DL (0.55-1.30); GLOMERULAR FILTRATION RATE 59.8 (>32); MAGNESIUM LEVEL 1.9 MG/DL (1.8-2.4); PHOSPHORUS LEVEL 3.5 MG/DL (2.4-5.1); POTASSIUM SERUM 4.2 MMOL/L (3.5-5.1)
[2023-02-18] MEDS: ADVAIR HFA 115/21MCG INHALER INH SCH ×2 (07:33→21:03)
[2023-02-18] MEDS: PANTOPRAZOLE 40MG VIAL IV SCH ×2 (09:43→20:32)
[2023-02-18] MEDS: VITAMIN D 1,000 INTERNATIONAL UNITS TABLET PO SCH (09:44)
[2023-02-18] MEDS: DIGOXIN 0.125 MG TAB PO SCH (09:44)
[2023-02-18] MEDS: SPIRONOLACTONE 12.5MG PER 1/2 TABLET PO SCH (09:44)
[2023-02-18] MEDS: FUROSEMIDE 20MG/2ML VIAL IV SCH (09:44)
[2023-02-18] MEDS: FERROUS GLUCONATE 324 MG TAB PO SCH (09:44)
[2023-02-18] MEDS: CYANOCOBALAMIN 500 MCG TAB PO SCH (09:45)
[2023-02-18] MEDS: PRAVASTATIN 20 MG TAB PO SCH (09:45)
[2023-02-18] MEDS: LOSARTAN 50MG TABLET PO SCH (09:45)
[2023-02-18] MEDS: BISACODYL 5MG TAB PO SCH (11:47)
[2023-02-18 13:54] VITALS: BP 148/76; TEMP 97; O2SAT 97
[2023-02-18] MEDS: CETIRIZINE (ZyrTEC) 10 MG TAB PO SCH (20:33)
[2023-02-18] MEDS: ENOXAPARIN 40MG/0.4ML SYRINGE (J1650 PER 10MG) SC SCH (20:33)
[2023-02-18] MEDS: guaiFENesin 200 MG TAB PO SCH (20:33)
[2023-02-18] MEDS: MONTELUKAST 10 MG TAB PO SCH (20:33)
[2023-02-18] MEDS: MESALAMINE 400 MG CAPSULE DELAYED RELEASE (DELZICOL) PO SCH (20:33)
[2023-02-18] MEDS: BUDESONIDE 0.5 MG/2 ML INHALATION SUSPENSION INH SCH (21:02)
[2023-02-18 21:06] VITALS: BP 146/54; TEMP 97.7; O2SAT 97
[2023-02-19] MEDS: IPRATROPIUM 0.5MG/ALBUTEROL 2.5MG INH SOL UD 3ML (DUONEB) NEB SCH ×4 (01:09→20:22)
[2023-02-19 05:54] LABS: HEMATOCRIT 27.3 % (36.0-47.0); HEMOGLOBIN 8.3 g/dl (12.0-15.5); MEAN CORPUSCULAR HEMOGLOBIN 27.6 pg (27.0-33.0); MEAN CORPUSCULAR HGB CONC 30.4 g/dl (32.0-36.5); MEAN CORPUSCULAR VOLUME 90.7 fl (80.0-96.0); PLATELET COUNT, AUTOMATED 143 10^3/uL (150-450); RED BLOOD COUNT 3.01 10^6/uL (4.00-5.40); WHITE BLOOD COUNT 7.5 10^3/uL (4.0-10.0)
[2023-02-19 06:00] VITALS: BP 143/54; TEMP 97.7; O2SAT 94
[2023-02-19 06:17] LABS: BLOOD UREA NITROGEN 10 MG/DL (9-23); CALCIUM LEVEL 8.3 MG/DL (8.3-10.6); CARBON DIOXIDE LEVEL 28 MMOL/L (20-31); CHLORIDE LEVEL 108 MMOL/L (98-107); CREATININE FOR GFR 0.89 MG/DL (0.55-1.30); GLOMERULAR FILTRATION RATE > 60.0 (>32); GLUCOSE, FASTING 113 MG/DL (74-106); MAGNESIUM LEVEL 1.8 MG/DL (1.8-2.4); PHOSPHORUS LEVEL 3.4 MG/DL (2.4-5.1); POTASSIUM SERUM 3.6 MMOL/L (3.5-5.1); SODIUM LEVEL 142 MMOL/L (136-145)
[2023-02-19] MEDS ORDERED: POTASSIUM CHLORIDE 10MEQ SR TABLET PO ONE (06:55)
[2023-02-19] MEDS: BUDESONIDE 0.5 MG/2 ML INHALATION SUSPENSION INH SCH ×2 (07:10→20:22)
[2023-02-19] MEDS: ADVAIR HFA 115/21MCG INHALER INH SCH ×2 (07:11→20:22)
[2023-02-19] MEDS: BISACODYL 5MG TAB PO SCH (09:31)
[2023-02-19] MEDS: VITAMIN D 1,000 INTERNATIONAL UNITS TABLET PO SCH (09:32)
[2023-02-19] MEDS: FERROUS GLUCONATE 324 MG TAB PO SCH (09:32)
[2023-02-19] MEDS: CYANOCOBALAMIN 500 MCG TAB PO SCH (09:32)
[2023-02-19] MEDS: LOSARTAN 50MG TABLET PO SCH (09:32)
[2023-02-19] MEDS: SPIRONOLACTONE 12.5MG PER 1/2 TABLET PO SCH (09:32)
[2023-02-19] MEDS: PRAVASTATIN 20 MG TAB PO SCH (09:32)
[2023-02-19] MEDS: PANTOPRAZOLE 40MG VIAL IV SCH ×2 (09:33→21:05)
[2023-02-19] MEDS: DIGOXIN 0.125 MG TAB PO SCH (09:33)
[2023-02-19] MEDS: FUROSEMIDE 20MG/2ML VIAL IV SCH (09:35)
[2023-02-19 14:00] VITALS: BP 143/45; TEMP 97.9; O2SAT 96
[2023-02-19] MEDS ORDERED: GOLYTELY SOLN 4000 ML BTL PO ONE (16:00)
[2023-02-19 20:50] VITALS: BP 146/48; TEMP 97.7; O2SAT 96
[2023-02-19] MEDS: CETIRIZINE (ZyrTEC) 10 MG TAB PO SCH (21:04)
[2023-02-19] MEDS: guaiFENesin 200 MG TAB PO SCH (21:04)
[2023-02-19] MEDS: MONTELUKAST 10 MG TAB PO SCH (21:04)
[2023-02-19] MEDS: MESALAMINE 400 MG CAPSULE DELAYED RELEASE (DELZICOL) PO SCH (21:05)
[2023-02-19] MEDS: ENOXAPARIN 40MG/0.4ML SYRINGE (J1650 PER 10MG) SC SCH (21:05)
[2023-02-20] VITALS (8 sets, daily range): BP systolic 135–190; BP diastolic 42–77; TEMP 97–97.9; O2SAT 92–99
[2023-02-20] MEDS: IPRATROPIUM 0.5MG/ALBUTEROL 2.5MG INH SOL UD 3ML (DUONEB) NEB SCH ×4 (01:29→19:20)
[2023-02-20 06:51] LABS: HEMOGLOBIN 8.6 g/dl (12.0-15.5); MEAN CORPUSCULAR HEMOGLOBIN 27.7 pg (27.0-33.0); MEAN CORPUSCULAR HGB CONC 29.7 g/dl (32.0-36.5); MEAN CORPUSCULAR VOLUME 93.5 fl (80.0-96.0); PLATELET COUNT, AUTOMATED 140 10^3/uL (150-450); WHITE BLOOD COUNT 5.9 10^3/uL (4.0-10.0)
[2023-02-20 07:27] LABS: BLOOD UREA NITROGEN 7 MG/DL (9-23); CALCIUM LEVEL 7.8 MG/DL (8.3-10.6); CARBON DIOXIDE LEVEL 29 MMOL/L (20-31); CHLORIDE LEVEL 110 MMOL/L (98-107); CREATININE FOR GFR 0.81 MG/DL (0.55-1.30); GLOMERULAR FILTRATION RATE > 60.0 (>32); GLUCOSE, FASTING 94 MG/DL (74-106); MAGNESIUM LEVEL 1.8 MG/DL (1.8-2.4); PHOSPHORUS LEVEL 3.3 MG/DL (2.4-5.1); POTASSIUM SERUM 3.5 MMOL/L (3.5-5.1); SODIUM LEVEL 146 MMOL/L (136-145)
[2023-02-20] MEDS: BUDESONIDE 0.5 MG/2 ML INHALATION SUSPENSION INH SCH ×2 (08:17→19:20)
[2023-02-20] MEDS: ADVAIR HFA 115/21MCG INHALER INH SCH ×2 (08:17→19:21)
[2023-02-20] MEDS: FUROSEMIDE 20MG/2ML VIAL IV SCH (08:35)
[2023-02-20] MEDS: PANTOPRAZOLE 40MG VIAL IV SCH ×2 (08:35→21:23)
[2023-02-20] MEDS: VITAMIN D 1,000 INTERNATIONAL UNITS TABLET PO SCH (08:36)
[2023-02-20] MEDS: FERROUS GLUCONATE 324 MG TAB PO SCH (08:36)
[2023-02-20] MEDS: CYANOCOBALAMIN 500 MCG TAB PO SCH (08:36)
[2023-02-20] MEDS: DIGOXIN 0.125 MG TAB PO SCH (08:39)
[2023-02-20] MEDS: PRAVASTATIN 20 MG TAB PO SCH (08:39)
[2023-02-20] MEDS: LOSARTAN 50MG TABLET PO SCH (08:39)
[2023-02-20] MEDS: BISACODYL 5MG TAB PO SCH (08:40)
[2023-02-20] MEDS: SPIRONOLACTONE 12.5MG PER 1/2 TABLET PO SCH (08:42)
[2023-02-20] MEDS ORDERED: ZOSYN 3.375GM VIAL ONE (10:20)
[2023-02-20] MEDS ORDERED: GLUCAGON INJ 1MG VIAL ONE (10:20)
[2023-02-20] MEDS ORDERED: GLUCAGON INJ 1MG VIAL As Ordered ONE (10:20)
[2023-02-20] MEDS ORDERED: PIPERACILLIN/TAZOBACTAM SOD 3.375 GM in D5W MINI-BAG PLUS 50 ML IV ONE (11:00)
[2023-02-20] MEDS ORDERED: propofoL 200 MG/20 ML VIAL As Ordered ONE (11:13)
[2023-02-20] MEDS ORDERED: ETOMIDATE INJ 20MG/10ML VIAL As Ordered ONE (11:13)
[2023-02-20] MEDS ORDERED: ONDANSETRON 4MG 2ML VIAL As Ordered ONE (11:13)
[2023-02-20] MEDS ORDERED: fentaNYL 100 MCG/2 ML INJECTION As Ordered ONE ×2 (11:14→12:39)
[2023-02-20] MEDS ORDERED: ROCURONIUM BROMIDE 50MG/5ML VIAL As Ordered ONE ×2 (11:16→13:32)
[2023-02-20] MEDS ORDERED: LIDOCAINE 2% 100MG/5ML SDV (FOR ANES.) As Ordered ONE (11:18)
[2023-02-20] MEDS ORDERED: ZOSYN 3.375GM VIAL As Ordered ONE (11:59)
[2023-02-20] MEDS ORDERED: LR 1,000 ML IV SCH (14:00)
[2023-02-20] MEDS ORDERED: fentaNYL 100 MCG/2 ML INJECTION IV PRN (14:00)
[2023-02-20] MEDS ORDERED: ONDANSETRON 4MG 2ML VIAL IV PRN (14:00)
[2023-02-20] MEDS ORDERED: oxyCODONE 5MG TAB PO PRN (14:00)
[2023-02-20] MEDS ORDERED: MORPHINE 2 MG/ML 1ML VIAL IV PRN ×3 (14:10)
[2023-02-20] MEDS ORDERED: KETOROLAC 30 MG/ML 1ML VIAL IV SCH (15:00)
[2023-02-20] MEDS: KETOROLAC 30 MG/ML 1ML VIAL IV SCH ×2 (15:48→23:39)
[2023-02-20] MEDS ORDERED: hydrALAZINE 20MG/ML 1ML VIAL IV ONE (16:15)
[2023-02-20] MEDS ORDERED: FUROSEMIDE 40MG/4ML VIAL IV ONE (16:50)
[2023-02-20] MEDS ORDERED: hydrALAZINE 20MG/ML 1ML VIAL IV PRN (18:15)
[2023-02-20] MEDS: MESALAMINE 400 MG CAPSULE DELAYED RELEASE (DELZICOL) PO SCH (21:21)
[2023-02-20] MEDS: guaiFENesin 200 MG TAB PO SCH (21:21)
[2023-02-20] MEDS: CETIRIZINE (ZyrTEC) 10 MG TAB PO SCH (21:22)
[2023-02-20] MEDS: MONTELUKAST 10 MG TAB PO SCH (21:22)
[2023-02-21] VITALS (29 sets, daily range): BP systolic 136–185; BP diastolic 58–98; TEMP 96.9–98.1; O2SAT 85–100
[2023-02-21] MEDS: IPRATROPIUM 0.5MG/ALBUTEROL 2.5MG INH SOL UD 3ML (DUONEB) NEB SCH ×4 (00:23→19:16)
[2023-02-21 06:43] LABS: HEMATOCRIT 29.2 % (36.0-47.0); HEMOGLOBIN 8.9 g/dl (12.0-15.5); MEAN CORPUSCULAR HEMOGLOBIN 27.7 pg (27.0-33.0); MEAN CORPUSCULAR HGB CONC 30.5 g/dl (32.0-36.5); PLATELET COUNT, AUTOMATED 138 10^3/uL (150-450); RED BLOOD COUNT 3.21 10^6/uL (4.00-5.40)
[2023-02-21 07:07] LABS: CALCIUM LEVEL 8.3 MG/DL (8.3-10.6); CREATININE FOR GFR 1.01 MG/DL (0.55-1.30); GLOMERULAR FILTRATION RATE 55.1 (>32); MAGNESIUM LEVEL 1.8 MG/DL (1.8-2.4); PHOSPHORUS LEVEL 4.4 MG/DL (2.4-5.1)
[2023-02-21] MEDS: ADVAIR HFA 115/21MCG INHALER INH SCH ×2 (07:44→19:16)
[2023-02-21] MEDS: BUDESONIDE 0.5 MG/2 ML INHALATION SUSPENSION INH SCH ×2 (07:44→19:16)
[2023-02-21] MEDS: PANTOPRAZOLE 40MG VIAL IV SCH ×2 (08:40→20:12)
[2023-02-21] MEDS: CYANOCOBALAMIN 500 MCG TAB PO SCH (08:40)
[2023-02-21] MEDS: KETOROLAC 30 MG/ML 1ML VIAL IV SCH ×3 (08:40→23:49)
[2023-02-21] MEDS: VITAMIN D 1,000 INTERNATIONAL UNITS TABLET PO SCH (08:41)
[2023-02-21] MEDS: SPIRONOLACTONE 12.5MG PER 1/2 TABLET PO SCH (08:41)
[2023-02-21] MEDS: PRAVASTATIN 20 MG TAB PO SCH (08:41)
[2023-02-21] MEDS: LOSARTAN 50MG TABLET PO SCH (08:41)
[2023-02-21] MEDS: FERROUS GLUCONATE 324 MG TAB PO SCH (08:41)
[2023-02-21] MEDS: DIGOXIN 0.125 MG TAB PO SCH (08:41)
[2023-02-21] MEDS ORDERED: hydrALAZINE 20MG/ML 1ML VIAL IV STA (10:15)
[2023-02-21] MEDS ORDERED: hydrALAZINE 20MG/ML 1ML VIAL IV PRN (11:35)
[2023-02-21] MEDS: FUROSEMIDE 20 MG TAB PO SCH (12:01)
[2023-02-21] MEDS: MONTELUKAST 10 MG TAB PO SCH (20:12)
[2023-02-21] MEDS: MESALAMINE 400 MG CAPSULE DELAYED RELEASE (DELZICOL) PO SCH (20:12)
[2023-02-21] MEDS: guaiFENesin 200 MG TAB PO SCH (20:12)
[2023-02-21] MEDS: CETIRIZINE (ZyrTEC) 10 MG TAB PO SCH (20:12)
[2023-02-22] VITALS (11 sets, daily range): BP systolic 130–168; BP diastolic 48–73; TEMP 97–97.9; O2SAT 94–99
[2023-02-22] MEDS: IPRATROPIUM 0.5MG/ALBUTEROL 2.5MG INH SOL UD 3ML (DUONEB) NEB SCH ×4 (01:41→19:30)
[2023-02-22 06:07] LABS: HEMATOCRIT 27.3 % (36.0-47.0); HEMOGLOBIN 8.2 g/dl (12.0-15.5); MEAN CORPUSCULAR HEMOGLOBIN 27.5 pg (27.0-33.0); MEAN CORPUSCULAR VOLUME 91.6 fl (80.0-96.0); PLATELET COUNT, AUTOMATED 128 10^3/uL (150-450); RED BLOOD COUNT 2.98 10^6/uL (4.00-5.40)
[2023-02-22 06:33] LABS: ALBUMIN 2.7 G/DL (3.2-5.2); BILIRUBIN,TOTAL 0.5 MG/DL (0.3-1.2); CALCIUM LEVEL 8.4 MG/DL (8.3-10.6); CREATININE FOR GFR 1.03 MG/DL (0.55-1.30); GLOMERULAR FILTRATION RATE 53.8 (>32); POTASSIUM SERUM 3.4 MMOL/L (3.5-5.1); TOTAL PROTEIN 5.5 G/DL (5.7-8.2)
[2023-02-22] MEDS: ADVAIR HFA 115/21MCG INHALER INH SCH ×2 (07:26→19:29)
[2023-02-22] MEDS: BUDESONIDE 0.5 MG/2 ML INHALATION SUSPENSION INH SCH ×2 (07:26→19:30)
[2023-02-22] MEDS ORDERED: POTASSIUM CHLORIDE 10MEQ SR TABLET PO ONE (07:30)
[2023-02-22] MEDS: SPIRONOLACTONE 12.5MG PER 1/2 TABLET PO SCH (08:51)
[2023-02-22] MEDS: PANTOPRAZOLE 40MG VIAL IV SCH ×2 (08:51→20:15)
[2023-02-22] MEDS: FUROSEMIDE 20 MG TAB PO SCH (08:51)
[2023-02-22] MEDS: PRAVASTATIN 20 MG TAB PO SCH (08:51)
[2023-02-22] MEDS: LOSARTAN 50MG TABLET PO SCH (08:52)
[2023-02-22] MEDS: CYANOCOBALAMIN 500 MCG TAB PO SCH (08:52)
[2023-02-22] MEDS: VITAMIN D 1,000 INTERNATIONAL UNITS TABLET PO SCH (08:52)
[2023-02-22] MEDS: FERROUS GLUCONATE 324 MG TAB PO SCH (08:52)
[2023-02-22] MEDS: DIGOXIN 0.125 MG TAB PO SCH (08:52)
[2023-02-22] MEDS: KETOROLAC 30 MG/ML 1ML VIAL IV SCH ×2 (08:52→15:22)
[2023-02-22] MEDS: CETIRIZINE (ZyrTEC) 10 MG TAB PO SCH (20:14)
[2023-02-22] MEDS: MESALAMINE 400 MG CAPSULE DELAYED RELEASE (DELZICOL) PO SCH (20:14)
[2023-02-22] MEDS: MONTELUKAST 10 MG TAB PO SCH (20:14)
[2023-02-22] MEDS: guaiFENesin 200 MG TAB PO SCH (20:15)
[2023-02-23] VITALS (8 sets, daily range): BP systolic 140–163; BP diastolic 50–90; TEMP 97.2–98; O2SAT 94–98
[2023-02-23] MEDS: KETOROLAC 30 MG/ML 1ML VIAL IV SCH ×2 (00:52→08:24)
[2023-02-23] MEDS: IPRATROPIUM 0.5MG/ALBUTEROL 2.5MG INH SOL UD 3ML (DUONEB) NEB SCH ×4 (01:01→19:46)
[2023-02-23 06:12] LABS: HEMATOCRIT 25.7 % (36.0-47.0); HEMOGLOBIN 7.9 g/dl (12.0-15.5); MEAN CORPUSCULAR HEMOGLOBIN 28.1 pg (27.0-33.0); MEAN CORPUSCULAR HGB CONC 30.7 g/dl (32.0-36.5); MEAN CORPUSCULAR VOLUME 91.5 fl (80.0-96.0); PLATELET COUNT, AUTOMATED 126 10^3/uL (150-450); RED BLOOD COUNT 2.81 10^6/uL (4.00-5.40); WHITE BLOOD COUNT 6.6 10^3/uL (4.0-10.0)
[2023-02-23 06:22] LABS: ALBUMIN 2.4 G/DL (3.2-5.2); BILIRUBIN,TOTAL 0.2 MG/DL (0.3-1.2); CALCIUM LEVEL 7.5 MG/DL (8.3-10.6); CREATININE FOR GFR 1.07 MG/DL (0.55-1.30); GLOMERULAR FILTRATION RATE 51.5 (>32); POTASSIUM SERUM 3.6 MMOL/L (3.5-5.1)
[2023-02-23] MEDS: BUDESONIDE 0.5 MG/2 ML INHALATION SUSPENSION INH SCH ×2 (07:08→19:46)
[2023-02-23] MEDS: ADVAIR HFA 115/21MCG INHALER INH SCH ×2 (07:08→19:46)
[2023-02-23] MEDS: PANTOPRAZOLE 40MG VIAL IV SCH ×2 (08:23→22:12)
[2023-02-23] MEDS: VITAMIN D 1,000 INTERNATIONAL UNITS TABLET PO SCH (08:24)
[2023-02-23] MEDS: PRAVASTATIN 20 MG TAB PO SCH (08:24)
[2023-02-23] MEDS: FERROUS GLUCONATE 324 MG TAB PO SCH (08:24)
[2023-02-23] MEDS: CYANOCOBALAMIN 500 MCG TAB PO SCH (08:24)
[2023-02-23] MEDS: SPIRONOLACTONE 12.5MG PER 1/2 TABLET PO SCH (08:24)
[2023-02-23] MEDS: LOSARTAN 50MG TABLET PO SCH (08:24)
[2023-02-23] MEDS: DIGOXIN 0.125 MG TAB PO SCH (08:25)
[2023-02-23] MEDS: FUROSEMIDE 20 MG TAB PO SCH (08:25)
[2023-02-23 19:04] LABS: HEMATOCRIT 32.7 % (36.0-47.0); MEAN CORPUSCULAR HEMOGLOBIN 28.5 pg (27.0-33.0); MEAN CORPUSCULAR HGB CONC 31.8 g/dl (32.0-36.5); MEAN CORPUSCULAR VOLUME 89.6 fl (80.0-96.0); PLATELET COUNT, AUTOMATED 156 10^3/uL (150-450); RED BLOOD COUNT 3.65 10^6/uL (4.00-5.40); WHITE BLOOD COUNT 9.2 10^3/uL (4.0-10.0)
[2023-02-23 19:05] LABS: HEMOGLOBIN 10.4 g/dl (12.0-15.5)
[2023-02-23] MEDS ORDERED: ACETAMINOPHEN TAB 650MG DOSE (2X325MG) PO ONE (21:50)
[2023-02-23] MEDS: MESALAMINE 400 MG CAPSULE DELAYED RELEASE (DELZICOL) PO SCH (22:13)
[2023-02-23] MEDS: guaiFENesin 200 MG TAB PO SCH (22:13)
[2023-02-23] MEDS: CETIRIZINE (ZyrTEC) 10 MG TAB PO SCH (22:13)
[2023-02-23] MEDS: MONTELUKAST 10 MG TAB PO SCH (22:13)
[2023-02-24 00:59] VITALS: BP 165/60; TEMP 98.4; O2SAT 97
[2023-02-24] MEDS: IPRATROPIUM 0.5MG/ALBUTEROL 2.5MG INH SOL UD 3ML (DUONEB) NEB SCH ×3 (02:26→13:22)
[2023-02-24 04:11] VITALS: BP 160/88; TEMP 97.6; O2SAT 95
[2023-02-24 04:59] VITALS: BP 142/69; TEMP 98.6; O2SAT 95
[2023-02-24 05:19] LABS: HEMATOCRIT 28.4 % (36.0-47.0); HEMOGLOBIN 8.9 g/dl (12.0-15.5); MEAN CORPUSCULAR HEMOGLOBIN 27.9 pg (27.0-33.0); MEAN CORPUSCULAR HGB CONC 31.3 g/dl (32.0-36.5); PLATELET COUNT, AUTOMATED 121 10^3/uL (150-450); RED BLOOD COUNT 3.19 10^6/uL (4.00-5.40); WHITE BLOOD COUNT 6.8 10^3/uL (4.0-10.0)
[2023-02-24 05:44] LABS: ALBUMIN 2.5 G/DL (3.2-5.2); ALKALINE PHOSPHATASE 51 U/L (46-116); ALT/SGPT 16 U/L (7.0-40); AST/SGOT 13 U/L (<34); BILIRUBIN,TOTAL 0.4 MG/DL (0.3-1.2); BLOOD UREA NITROGEN 16 MG/DL (9-23); CALCIUM LEVEL 7.6 MG/DL (8.3-10.6); CARBON DIOXIDE LEVEL 27 MMOL/L (20-31); CHLORIDE LEVEL 108 MMOL/L (98-107); CREATININE FOR GFR 0.88 MG/DL (0.55-1.30); GLOMERULAR FILTRATION RATE > 60.0 (>32); GLUCOSE, FASTING 118 MG/DL (74-106); POTASSIUM SERUM 3.4 MMOL/L (3.5-5.1); SODIUM LEVEL 142 MMOL/L (136-145); TOTAL PROTEIN 5.1 G/DL (5.7-8.2)
[2023-02-24] MEDS ORDERED: POTASSIUM CHLORIDE 10MEQ SR TABLET PO ONE (07:15)
[2023-02-24 07:41] LABS: HEMATOCRIT 31.2 % (36.0-47.0); HEMOGLOBIN 9.7 g/dl (12.0-15.5); MEAN CORPUSCULAR HEMOGLOBIN 28.1 pg (27.0-33.0); MEAN CORPUSCULAR HGB CONC 31.1 g/dl (32.0-36.5); MEAN CORPUSCULAR VOLUME 90.4 fl (80.0-96.0); PLATELET COUNT, AUTOMATED 133 10^3/uL (150-450); RED BLOOD COUNT 3.45 10^6/uL (4.00-5.40); WHITE BLOOD COUNT 6.7 10^3/uL (4.0-10.0)
[2023-02-24] MEDS: ADVAIR HFA 115/21MCG INHALER INH SCH (07:57)
[2023-02-24] MEDS: BUDESONIDE 0.5 MG/2 ML INHALATION SUSPENSION INH SCH (07:58)
[2023-02-24] MEDS ORDERED: MIRA3350 PO (09:21)
[2023-02-24] MEDS ORDERED: FERR324T21 PO (09:21)
[2023-02-24] MEDS ORDERED: COLA100C5 PO (09:21)
[2023-02-24 10:04] VITALS: BP 150/57
[2023-02-24] MEDS: FUROSEMIDE 20 MG TAB PO SCH (10:04)
[2023-02-24] MEDS: LOSARTAN 50MG TABLET PO SCH (10:04)
[2023-02-24] MEDS: SPIRONOLACTONE 12.5MG PER 1/2 TABLET PO SCH (10:05)
[2023-02-24] MEDS: FERROUS GLUCONATE 324 MG TAB PO SCH (10:05)
[2023-02-24] MEDS: CYANOCOBALAMIN 500 MCG TAB PO SCH (10:05)
[2023-02-24] MEDS: VITAMIN D 1,000 INTERNATIONAL UNITS TABLET PO SCH (10:06)
[2023-02-24] MEDS: DIGOXIN 0.125 MG TAB PO SCH (10:07)
[2023-02-24] MEDS: PRAVASTATIN 20 MG TAB PO SCH (10:07)
[2023-02-24] MEDS: PANTOPRAZOLE 40MG VIAL IV SCH (10:07)
[2023-02-24] MEDS ORDERED: ALBU2.5V10 INH (12:00)
[2023-02-24] MEDS ORDERED: ALBU8.5H INH (12:00)
[2023-02-24] MEDS ORDERED: IPRA0.00 INH (12:00)
[2023-02-24] MEDS ORDERED: PRED20TA PO (12:00)
[2023-03-23] MEDS ORDERED: VENTAER INH (13:57)
[2023-03-23] MEDS ORDERED: MUCI600T31 PO (13:57)
[2023-03-23] MEDS ORDERED: CLOB0.0548 TOP (13:57)
[2023-03-23] MEDS ORDERED: MELA5TAB47 PO (13:57)
== END 2023-02-24 13:40 | disposition home health service (06) | DRG 330 ==
LOC: M ED 16:42 → UNDOADMOB 16:43 → M ED INP 16:43 → M MSPAV 23:08 → OBSVTOIN 02-20 09:02 → M MSPAV 02-20 15:31 → M PCU 02-20 15:31 → INTOOBSV 02-20 19:02 → OBSVTOIN 02-20 19:02 → M PCU 02-23 20:36 → M MS5PR 02-24 04:48 → UNDODISIN 02-24 13:40
PROVIDERS: ADMIT Internal Medicine; ATTEND Internal Medicine
PROC: 0DJ08ZZ Inspection of Upper Intestinal Tract, Via Natural or Artificial Opening Endoscopic (ICD-10-PCS; 2023-02-14)
PROC: B246ZZZ Ultrasonography of Right and Left Heart (ICD-10-PCS; 2023-02-14)
PROC: 30233N1 Transfusion of Nonautologous Red Blood Cells into Peripheral Vein, Percutaneous Approach (ICD-10-PCS; 2023-02-14)
PROC: 0DBL8ZX Excision of Transverse Colon, Via Natural or Artificial Opening Endoscopic, Diagnostic (ICD-10-PCS; 2023-02-15)
PROC: 0DBF4ZZ Excision of Right Large Intestine, Percutaneous Endoscopic Approach (ICD-10-PCS; principal; 2023-02-20 12:00)
DX: C18.3 Malignant neoplasm of hepatic flexure (principal); K51.90 Ulcerative colitis, unspecified, without complications; I31.39 Other pericardial effusion (noninflammatory); I50.32 Chronic diastolic (congestive) heart failure; I48.0 Paroxysmal atrial fibrillation; I27.29 Other secondary pulmonary hypertension; J44.9 Chronic obstructive pulmonary disease, unspecified; D50.9 Iron deficiency anemia, unspecified; I11.0 Hypertensive heart disease with heart failure; E78.5 Hyperlipidemia, unspecified; K31.4 Gastric diverticulum; K22.2 Esophageal obstruction; R05.3 Chronic cough; K57.30 Diverticulosis of large intestine without perforation or abscess without bleeding; R19.5 Other fecal abnormalities; K64.8 Other hemorrhoids; D51.0 Vitamin B12 deficiency anemia due to intrinsic factor deficiency; J45.909 Unspecified asthma, uncomplicated; G47.33 Obstructive sleep apnea (adult) (pediatric); D50.0 Iron deficiency anemia secondary to blood loss (chronic); Z87.891 Personal history of nicotine dependence; Z79.01 Long term (current) use of anticoagulants; Z79.899 Other long term (current) drug therapy

== ENCOUNTER 2023-02-27 20:15 | Inpatient (IN) | payer MEDICARE ==
[~2023-02-27] VITALS: Ht 160 cm; Wt 60.1 kg
[~2023-02-27 20:15] MED LIST changes: +ALBU2.5V10 INH; +ALBU8.5H INH; +COLA100C5 PO; +DIGO0.123 PO; +FERR324T21 PO; +IPRA0.00 INH; +LOSA50TA28 PO; +MIRA3350 PO; +MM S100C PO; +MONT10TA97 PO; +PRED20TA PO; +VITA100093 PO; +VITA500T40 PO; +[UNRECOGNIZED DRUG - CODE] PO
[2023-02-27] MEDS ORDERED: ELIQ5TAB PO (20:31)
[2023-02-27] MEDS ORDERED: MUCI1TAB16 PO (20:31)
[2023-02-27 21:45] LABS: BASO % 0.3 % (0.0-1.0); EOS # 0.2 10^3/uL (0.0-0.5); EOS % 1.5 % (0.0-3.0); HEMATOCRIT 24.7 % (36.0-47.0); HEMOGLOBIN 7.6 g/dl (12.0-15.5); LYMPH # 1.6 10^3/uL (1.5-5.0); LYMPH % 12.4 % (24.0-44.0); MEAN CORPUSCULAR HEMOGLOBIN 27.8 pg (27.0-33.0); MEAN CORPUSCULAR HGB CONC 30.8 g/dl (32.0-36.5); MEAN CORPUSCULAR VOLUME 90.5 fl (80.0-96.0); MONO % 7.7 % (2.0-8.0); NEUTROPHILS # 9.7 10^3/uL (1.5-8.5); NEUTROPHILS % 77.5 % (36.0-66.0); PLATELET COUNT, AUTOMATED 207 10^3/uL (150-450); RED BLOOD COUNT 2.73 10^6/uL (4.00-5.40); WHITE BLOOD COUNT 12.5 10^3/uL (4.0-10.0)
[2023-02-27 22:04] LABS: INR 1.12; PROTHROMBIN TIME 14.6 SECONDS (12.5-14.5)
[2023-02-27 22:10] LABS: ALBUMIN 2.7 G/DL (3.2-5.2); BILIRUBIN,DIRECT 0.1 MG/DL (<0.4); BILIRUBIN,TOTAL 0.3 MG/DL (0.3-1.2); CALCIUM LEVEL 8.1 MG/DL (8.3-10.6); CREATININE FOR GFR 1.32 MG/DL (0.55-1.30); GLOMERULAR FILTRATION RATE 40.4 (>32); TOTAL PROTEIN 5.7 G/DL (5.7-8.2)
[2023-02-27 22:12] LABS: RSV AMPLIFICATION NEGATIVE (NEGATIVE)
[2023-02-28] VITALS (10 sets, daily range): BP systolic 120–159; BP diastolic 58–70; TEMP 97.3–98.6; O2SAT 96–99
[2023-02-28] MEDS ORDERED: FERR32TA PO (03:36)
[2023-02-28] MEDS ORDERED: IPRA0.00 INH (03:36)
[2023-02-28] MEDS ORDERED: MUCI600T31 PO (03:36)
[2023-02-28] MEDS ORDERED: PRED20TA PO (03:36)
[2023-02-28] MEDS ORDERED: VITA500T41 PO (03:36)
[2023-02-28] MEDS ORDERED: DOCU100C16 PO (03:36)
[2023-02-28] MEDS ORDERED: MIRA1POW3 PO (03:36)
[2023-02-28] MEDS ORDERED: HOME MED LIST COMPLETE! XX SCH (03:40)
[2023-02-28] MEDS ORDERED: ALBUTEROL SULFATE 2.5MG/0.5ML INH NEB SOLN INH PRN (05:10)
[2023-02-28 05:36] LABS: BASO % 0.4 % (0.0-1.0); EOS # 0.2 10^3/uL (0.0-0.5); EOS % 2.1 % (0.0-3.0); LYMPH # 1.6 10^3/uL (1.5-5.0); LYMPH % 23.1 % (24.0-44.0); MEAN CORPUSCULAR HEMOGLOBIN 28.5 pg (27.0-33.0); MEAN CORPUSCULAR HGB CONC 31.8 g/dl (32.0-36.5); MEAN CORPUSCULAR VOLUME 89.6 fl (80.0-96.0); MONO # 0.6 10^3/uL (0.0-0.8); MONO % 8.6 % (2.0-8.0); NEUTROPHILS # 4.6 10^3/uL (1.5-8.5); NEUTROPHILS % 65.2 % (36.0-66.0); PLATELET COUNT, AUTOMATED 149 10^3/uL (150-450); RED BLOOD COUNT 2.21 10^6/uL (4.00-5.40); WHITE BLOOD COUNT 7.1 10^3/uL (4.0-10.0)
[2023-02-28 05:43] LABS: HEMATOCRIT 19.8 % (36.0-47.0); HEMOGLOBIN 6.3 g/dl (12.0-15.5)
[2023-02-28 06:04] LABS: ALBUMIN 2.4 G/DL (3.2-5.2); BILIRUBIN,TOTAL 0.3 MG/DL (0.3-1.2); CALCIUM LEVEL 7.7 MG/DL (8.3-10.6); CREATININE FOR GFR 1.24 MG/DL (0.55-1.30); GLOMERULAR FILTRATION RATE 43.5 (>32); POTASSIUM SERUM 3.7 MMOL/L (3.5-5.1)
[2023-02-28] MEDS ORDERED: DIGOXIN 0.125 MG TAB PO SCH (09:00)
[2023-02-28 09:37] LABS: BASO # 0.1 10^3/uL (0.0-0.2); BASO % 0.5 % (0.0-1.0); EOS # 0.2 10^3/uL (0.0-0.5); EOS % 2.3 % (0.0-3.0); HEMATOCRIT 25.9 % (36.0-47.0); LYMPH # 1.8 10^3/uL (1.5-5.0); LYMPH % 19.6 % (24.0-44.0); MEAN CORPUSCULAR HEMOGLOBIN 29.3 pg (27.0-33.0); MEAN CORPUSCULAR HGB CONC 32.8 g/dl (32.0-36.5); MEAN CORPUSCULAR VOLUME 89.3 fl (80.0-96.0); MONO # 0.8 10^3/uL (0.0-0.8); MONO % 8.5 % (2.0-8.0); NEUTROPHILS # 6.3 10^3/uL (1.5-8.5); NEUTROPHILS % 68.7 % (36.0-66.0); PLATELET COUNT, AUTOMATED 172 10^3/uL (150-450); WHITE BLOOD COUNT 9.1 10^3/uL (4.0-10.0)
[2023-02-28 09:40] LABS: HEMOGLOBIN 8.5 g/dl (12.0-15.5)
[2023-02-28] MEDS: PRAVASTATIN 20 MG TAB PO SCH (09:50)
[2023-02-28] MEDS: VITAMIN D 1,000 INTERNATIONAL UNITS TABLET PO SCH (09:50)
[2023-02-28] MEDS: CYANOCOBALAMIN 500 MCG TAB PO SCH (09:50)
[2023-02-28] MEDS: guaiFENesin ER 600 MG TAB PO SCH ×2 (09:50→20:06)
[2023-02-28 12:37] LABS: HEMATOCRIT 26.5 % (36.0-47.0); HEMOGLOBIN 8.5 g/dl (12.0-15.5)
[2023-02-28] MEDS: OCTREOTIDE ACETATE 100MCG/ML VIAL **IV ADMINISTRATION ONLY IV SCH ×2 (13:26→20:06)
[2023-02-28] MEDS: FERROUS GLUCONATE 324 MG TAB PO SCH ×2 (13:26→20:06)
[2023-02-28 20:27] LABS: HEMATOCRIT 26.1 % (36.0-47.0); HEMOGLOBIN 8.1 g/dl (12.0-15.5)
[2023-02-28] MEDS ORDERED: MONTELUKAST 10 MG TAB PO SCH (21:00)
[2023-02-28] MEDS ORDERED: MESALAMINE 400 MG CAPSULE DELAYED RELEASE (DELZICOL) PO SCH (21:00)
[2023-03-01] VITALS: BP_SYST 147; BP_SYST 181; BP_DIAS 60; BP_DIAS 75; TEMP 98.6; O2SAT 95; O2SAT 98
[2023-03-01] MEDS: OCTREOTIDE ACETATE 100MCG/ML VIAL **IV ADMINISTRATION ONLY IV SCH (04:01)
[2023-03-01 04:05] VITALS: BP 143/65; TEMP 98; O2SAT 93
[2023-03-01 05:25] LABS: HEMATOCRIT 23.4 % (36.0-47.0); HEMOGLOBIN 7.4 g/dl (12.0-15.5); MEAN CORPUSCULAR HEMOGLOBIN 28.5 pg (27.0-33.0); MEAN CORPUSCULAR HGB CONC 31.6 g/dl (32.0-36.5); PLATELET COUNT, AUTOMATED 157 10^3/uL (150-450); WHITE BLOOD COUNT 6.3 10^3/uL (4.0-10.0)
[2023-03-01 05:53] LABS: BLOOD UREA NITROGEN 11 MG/DL (9-23); CALCIUM LEVEL 7.7 MG/DL (8.3-10.6); CARBON DIOXIDE LEVEL 26 MMOL/L (20-31); CHLORIDE LEVEL 108 MMOL/L (98-107); CREATININE FOR GFR 0.78 MG/DL (0.55-1.30); GLOMERULAR FILTRATION RATE > 60.0 (>32); GLUCOSE, FASTING 114 MG/DL (74-106); MAGNESIUM LEVEL 1.7 MG/DL (1.8-2.4); PHOSPHORUS LEVEL 3.3 MG/DL (2.4-5.1); POTASSIUM SERUM 3.9 MMOL/L (3.5-5.1); SODIUM LEVEL 140 MMOL/L (136-145)
[2023-03-01] MEDS ORDERED: MAG SULF 1GM/100ML (MAG RUN) 1 GM in IV 1 EA IV ONE (06:15)
[2023-03-01 07:48] VITALS: BP 153/67; TEMP 98; O2SAT 95
[2023-03-01 07:49] LABS: HEMATOCRIT 25.2 % (36.0-47.0)
[2023-03-01] MEDS: CYANOCOBALAMIN 500 MCG TAB PO SCH (08:52)
[2023-03-01] MEDS: guaiFENesin ER 600 MG TAB PO SCH (08:52)
[2023-03-01] MEDS: VITAMIN D 1,000 INTERNATIONAL UNITS TABLET PO SCH (08:52)
[2023-03-01] MEDS: FERROUS GLUCONATE 324 MG TAB PO SCH (08:53)
[2023-03-01] MEDS: PRAVASTATIN 20 MG TAB PO SCH (08:53)
[2023-03-01] MEDS ORDERED: DIGOXIN 0.125 MG TAB PO SCH (09:00)
[2023-03-01 10:47] VITALS: BP 139/63; O2SAT 95
== END 2023-03-01 11:21 | disposition home or self-care (01) | DRG 378 ==
LOC: M ED 20:15 → M ED INP 02-28 02:40 → M ICU 02-28 09:51
PROVIDERS: ADMIT Internal Medicine; ATTEND Internal Medicine
PROC: 30233N1 Transfusion of Nonautologous Red Blood Cells into Peripheral Vein, Percutaneous Approach (ICD-10-PCS; principal; 2023-02-28)
DX: K92.2 Gastrointestinal hemorrhage, unspecified (principal); N17.9 Acute kidney failure, unspecified; C18.3 Malignant neoplasm of hepatic flexure; I50.22 Chronic systolic (congestive) heart failure; D62 Acute posthemorrhagic anemia; I13.0 Hypertensive heart and chronic kidney disease with heart failure and stage 1 through stage 4 chronic kidney disease, or unspecified chronic kidney disease; K51.90 Ulcerative colitis, unspecified, without complications; D68.32 Hemorrhagic disorder due to extrinsic circulating anticoagulants; N18.9 Chronic kidney disease, unspecified; I48.91 Unspecified atrial fibrillation; E78.5 Hyperlipidemia, unspecified; I27.81 Cor pulmonale (chronic); G47.33 Obstructive sleep apnea (adult) (pediatric); I08.0 Rheumatic disorders of both mitral and aortic valves; D72.829 Elevated white blood cell count, unspecified; J44.9 Chronic obstructive pulmonary disease, unspecified; D50.9 Iron deficiency anemia, unspecified; Z90.49 Acquired absence of other specified parts of digestive tract; Z79.01 Long term (current) use of anticoagulants; Z79.899 Other long term (current) drug therapy

== ENCOUNTER 2023-03-03 17:59 | Emergency (ER) | payer MEDICARE ==
[~2023-03-03] VITALS: Ht 160 cm; Wt 58.7 kg
[2023-03-03 20:02] LABS: BASO % 0.4 % (0.0-1.0); EOS # 0.1 10^3/uL (0.0-0.5); EOS % 0.9 % (0.0-3.0); HEMATOCRIT 23.8 % (36.0-47.0); HEMOGLOBIN 7.4 g/dl (12.0-15.5); LYMPH # 1.5 10^3/uL (1.5-5.0); LYMPH % 17.1 % (24.0-44.0); MEAN CORPUSCULAR HEMOGLOBIN 28.9 pg (27.0-33.0); MEAN CORPUSCULAR HGB CONC 31.1 g/dl (32.0-36.5); MONO # 0.8 10^3/uL (0.0-0.8); MONO % 8.7 % (2.0-8.0); NEUTROPHILS # 6.5 10^3/uL (1.5-8.5); NEUTROPHILS % 72.2 % (36.0-66.0); PLATELET COUNT, AUTOMATED 228 10^3/uL (150-450); RED BLOOD COUNT 2.56 10^6/uL (4.00-5.40)
[2023-03-03 20:10] LABS: BLOOD UREA NITROGEN 13 MG/DL (9-23); CALCIUM LEVEL 8.6 MG/DL (8.3-10.6); CARBON DIOXIDE LEVEL 30 MMOL/L (20-31); CHLORIDE LEVEL 103 MMOL/L (98-107); CREATININE FOR GFR 0.87 MG/DL (0.55-1.30); GLOMERULAR FILTRATION RATE > 60.0 (>32); GLUCOSE, FASTING 122 MG/DL (74-106); POTASSIUM SERUM 3.5 MMOL/L (3.5-5.1); SODIUM LEVEL 138 MMOL/L (136-145)
[2023-03-03 21:50] VITALS: BP 148/64; TEMP 97.2; O2SAT 96
[2023-03-03 22:04] VITALS: BP 148/58; TEMP 98; O2SAT 98
[2023-03-03 23:44] VITALS: O2SAT 96
[2023-03-03 23:49] VITALS: BP 176/73; TEMP 98
== END 2023-03-04 00:13 | disposition home or self-care (01) ==
LOC: M ED 17:59
DX: D50.0 Iron deficiency anemia secondary to blood loss (chronic) (principal); E87.6 Hypokalemia; I48.91 Unspecified atrial fibrillation; I11.9 Hypertensive heart disease without heart failure; E78.5 Hyperlipidemia, unspecified; N18.9 Chronic kidney disease, unspecified; G47.33 Obstructive sleep apnea (adult) (pediatric); K72.90 Hepatic failure, unspecified without coma; C34.90 Malignant neoplasm of unspecified part of unspecified bronchus or lung; K51.90 Ulcerative colitis, unspecified, without complications; Z79.899 Other long term (current) drug therapy; Z79.51 Long term (current) use of inhaled steroids; Z79.01 Long term (current) use of anticoagulants
CPT/HCPCS: 36430; 80048; 85025; 86850; 86900; 86901; 86920; 99285; P9016

== ENCOUNTER → 2023-03-03 | Outpatient (REF) | payer MEDICARE ==
[~2023-03-03] MED LIST changes: +DOCU100C16 PO; +FERR32TA PO; +MIRA1POW3 PO; +MUCI1TAB16 PO; +MUCI600T31 PO; +VITA500T41 PO
[2023-03-03 14:18] LABS: BASO % 0.4 % (0.0-1.0); EOS % 0.5 % (0.0-3.0); HEMATOCRIT 22.6 % (36.0-47.0); HEMOGLOBIN 7.1 g/dl (12.0-15.5); LYMPH # 1.2 10^3/uL (1.5-5.0); LYMPH % 14.1 % (24.0-44.0); MEAN CORPUSCULAR HEMOGLOBIN 29.3 pg (27.0-33.0); MEAN CORPUSCULAR HGB CONC 31.4 g/dl (32.0-36.5); MEAN CORPUSCULAR VOLUME 93.4 fl (80.0-96.0); MONO # 0.7 10^3/uL (0.0-0.8); MONO % 8.8 % (2.0-8.0); NEUTROPHILS # 6.3 10^3/uL (1.5-8.5); NEUTROPHILS % 75.7 % (36.0-66.0); PLATELET COUNT, AUTOMATED 220 10^3/uL (150-450); RED BLOOD COUNT 2.42 10^6/uL (4.00-5.40); WHITE BLOOD COUNT 8.3 10^3/uL (4.0-10.0)
== END ==
LOC: M SHH 13:36
PROVIDERS: ATTEND Nurse Practitioner Adult Health
DX: D64.9 Anemia, unspecified (principal); E87.6 Hypokalemia

== ENCOUNTER 2023-03-14 11:22 | Emergency (ER) | payer MEDICARE ==
[~2023-03-14] VITALS: Ht 160 cm; Wt 57.3 kg
[2023-03-14] MEDS ORDERED: NS 500 ML IV ONE (12:05)
[2023-03-14 12:32] LABS: BASO % 0.3 % (0.0-1.0); EOS # 0.1 10^3/uL (0.0-0.5); EOS % 0.5 % (0.0-3.0); HEMATOCRIT 31.8 % (36.0-47.0); HEMOGLOBIN 9.9 g/dl (12.0-15.5); LYMPH # 0.9 10^3/uL (1.5-5.0); LYMPH % 7.1 % (24.0-44.0); MEAN CORPUSCULAR HEMOGLOBIN 27.3 pg (27.0-33.0); MEAN CORPUSCULAR HGB CONC 31.1 g/dl (32.0-36.5); MEAN CORPUSCULAR VOLUME 87.8 fl (80.0-96.0); MONO # 0.8 10^3/uL (0.0-0.8); MONO % 6.4 % (2.0-8.0); NEUTROPHILS # 11.2 10^3/uL (1.5-8.5); NEUTROPHILS % 85.2 % (36.0-66.0); PLATELET COUNT, AUTOMATED 233 10^3/uL (150-450); RED BLOOD COUNT 3.62 10^6/uL (4.00-5.40); WHITE BLOOD COUNT 13.1 10^3/uL (4.0-10.0)
[2023-03-14 12:45] LABS: INR 0.97; PROTHROMBIN TIME 13.1 SECONDS (12.5-14.5)
[2023-03-14 12:57] LABS: LIPASE 38 U/L (12-53)
[2023-03-14 12:59] LABS: ALKALINE PHOSPHATASE 68 U/L (46-116); ALT/SGPT 10 U/L (7.0-40); AST/SGOT 9 U/L (<34); BILIRUBIN,DIRECT 0.2 MG/DL (<0.4); BILIRUBIN,TOTAL 0.6 MG/DL (0.3-1.2); BLOOD UREA NITROGEN 15 MG/DL (9-23); CALCIUM LEVEL 9.3 MG/DL (8.3-10.6); CARBON DIOXIDE LEVEL 26 MMOL/L (20-31); CHLORIDE LEVEL 103 MMOL/L (98-107); CREATININE FOR GFR 0.72 MG/DL (0.55-1.30); GLOMERULAR FILTRATION RATE > 60.0 (>32); GLUCOSE, FASTING 125 MG/DL (74-106); POTASSIUM SERUM 4.3 MMOL/L (3.5-5.1); SODIUM LEVEL 136 MMOL/L (136-145); TOTAL PROTEIN 6.8 G/DL (5.7-8.2)
[2023-03-14] MEDS ORDERED: AMOX500T PO (16:55)
[2023-03-14] MEDS ORDERED: AMOXICILLIN 500 MG CAP PO ONE (17:00)
[2023-03-14 17:34] VITALS: BP 163/73; TEMP 98.6; O2SAT 92
[2023-03-14 18:23] LABS: DIGOXIN LEVEL 1.4 NG/ML (0.8-2.0)
[2023-03-23] MEDS ORDERED: VENTAER INH (13:57)
[2023-03-23] MEDS ORDERED: MUCI600T31 PO (13:57)
[2023-03-23] MEDS ORDERED: MELA5TAB47 PO (13:57)
[2023-03-23] MEDS ORDERED: CLOB0.0548 TOP (13:57)
== END 2023-03-14 17:36 | disposition home or self-care (01) ==
LOC: M ED 11:22
DX: R53.83 Other fatigue (principal); I48.91 Unspecified atrial fibrillation; I50.20 Unspecified systolic (congestive) heart failure; D64.9 Anemia, unspecified; J44.9 Chronic obstructive pulmonary disease, unspecified; K51.00 Ulcerative (chronic) pancolitis without complications; Z87.891 Personal history of nicotine dependence; Z79.51 Long term (current) use of inhaled steroids; Z79.899 Other long term (current) drug therapy; Z79.52 Long term (current) use of systemic steroids

== ENCOUNTER 2023-03-19 15:18 | Inpatient (IN) | payer MEDICARE ==
[~2023-03-19] VITALS: Ht 160 cm; Wt 57.1 kg
[~2023-03-19 15:18] MED LIST changes: +AMOX500T PO
[2023-03-19] MEDS ORDERED: ELIQ2.5T PO (15:47)
[2023-03-19] MEDS ORDERED: methylPREDNISolone 125MG 2ML VIAL IV ONE ×2 (16:10→17:55)
[2023-03-19] MEDS ORDERED: ALBUTEROL SULFATE 2.5MG/0.5ML INH NEB SOLN INH ONE (16:10)
[2023-03-19] MEDS ORDERED: IPRATROPIUM 0.5MG/ALBUTEROL 2.5MG INH SOL UD 3ML (DUONEB) NEB ONE (16:10)
[2023-03-19 16:20] LABS: BASO # 0.1 10^3/uL (0.0-0.2); BASO % 0.4 % (0.0-1.0); EOS # 0.1 10^3/uL (0.0-0.5); EOS % 0.7 % (0.0-3.0); HEMATOCRIT 33.4 % (36.0-47.0); HEMOGLOBIN 10.3 g/dl (12.0-15.5); LYMPH # 1.7 10^3/uL (1.5-5.0); LYMPH % 12.4 % (24.0-44.0); MEAN CORPUSCULAR HEMOGLOBIN 26.8 pg (27.0-33.0); MEAN CORPUSCULAR HGB CONC 30.8 g/dl (32.0-36.5); MONO # 1.4 10^3/uL (0.0-0.8); MONO % 9.7 % (2.0-8.0); NEUTROPHILS # 10.7 10^3/uL (1.5-8.5); NEUTROPHILS % 76.3 % (36.0-66.0); PLATELET COUNT, AUTOMATED 250 10^3/uL (150-450); RED BLOOD COUNT 3.84 10^6/uL (4.00-5.40)
[2023-03-19 16:45] LABS: CK-MB VALUE MASS < 1.0 NG/ML (<3.6)
[2023-03-19] MEDS ORDERED: CEFEPIME HCL 2 GM in D5W MINI-BAG PLUS 50 ML IV ONE (16:45)
[2023-03-19] MEDS ORDERED: cefTRIAXone SOD 2 GM in D5W MINI-BAG PLUS 50 ML IV ONE (16:45)
[2023-03-19 16:46] LABS: ABG BASE EXCESS 1.3 (-2.0-2.0); ABG HCO3 25.2 MMOL/L (22.0-26.0); ABG O2 SATURATION 93.6 % (95.0-99.0); ABG PARTIAL PRESSURE CO2 37.1 mmHg (35.0-45.0); ABG PARTIAL PRESSURE O2 69.3 mmHg (75.0-100.0); ABG STANDARD HCO3 25.6 MMOL/L. (22.0-26.0); ABG TOTAL CO2 26.3 MMOL/L (23.0-31.0)
[2023-03-19 16:47] LABS: ALKALINE PHOSPHATASE 77 U/L (46-116); ALT/SGPT < 9 U/L (7.0-40); AST/SGOT < 8 U/L (<34); BILIRUBIN,DIRECT < 0.1 MG/DL (<0.4); BILIRUBIN,TOTAL 0.3 MG/DL (0.3-1.2); BLOOD UREA NITROGEN 25 MG/DL (9-23); CALCIUM LEVEL 8.6 MG/DL (8.3-10.6); CARBON DIOXIDE LEVEL 27 MMOL/L (20-31); CHLORIDE LEVEL 100 MMOL/L (98-107); CPK CREATINE PHOSPHOKINASE 36 U/L (34-145); CREATININE FOR GFR 0.74 MG/DL (0.55-1.30); GLOMERULAR FILTRATION RATE > 60.0 (>32); GLUCOSE, FASTING 101 MG/DL (74-106); MB/CK RELATIVE INDEX 2.77 (< OR =4); POTASSIUM SERUM 4.7 MMOL/L (3.5-5.1); SODIUM LEVEL 133 MMOL/L (136-145); TOTAL PROTEIN 7.6 G/DL (5.7-8.2)
[2023-03-19] MEDS ORDERED: AZITHROMYCIN INJ 500 MG, VIAL MATE ADAPTER 1 EACH in D5W 250 ML IV ONE (17:00)
[2023-03-19] MEDS ORDERED: ISOVUE-370 76% 100ML VIAL As Ordered ONE (17:46)
[2023-03-19] MEDS ORDERED: diphenhydrAMINE 50MG/ML VIAL IV STA (17:53)
[2023-03-19] MEDS ORDERED: FUROSEMIDE 40MG/4ML VIAL IV ONE (18:30)
[2023-03-19 18:52] LABS: PROCALCITONIN 0.07 ng/ml
[2023-03-19] MEDS ORDERED: AMOX500T PO (19:11)
[2023-03-19] MEDS ORDERED: HOME MED LIST COMPLETE! XX SCH (19:15)
[2023-03-19] MEDS ORDERED: SYMBICORT 160/4.5MCG INHALER 6GM INH SCH (20:00)
[2023-03-19] MEDS: IPRATROPIUM 0.5MG/ALBUTEROL 2.5MG INH SOL UD 3ML (DUONEB) NEB SCH ×2 (21:08→23:18)
[2023-03-19 21:30] VITALS: BP 157/71; TEMP 97.3; O2SAT 92
[2023-03-19] MEDS: guaiFENesin SYRUP 200MG 10ML UDC PO SCH ×2 (21:45→23:19)
[2023-03-19] MEDS: APIXABAN 2.5 MG TAB (ELIQUIS) PO SCH (22:36)
[2023-03-19] MEDS: FERROUS GLUCONATE 324 MG TAB PO SCH (22:36)
[2023-03-19] MEDS: DOXYCYCLINE HYCLATE 100MG TABLET PO SCH (22:36)
[2023-03-19] MEDS: MESALAMINE 400 MG CAPSULE DELAYED RELEASE (DELZICOL) PO SCH (22:36)
[2023-03-19] MEDS: MONTELUKAST 10 MG TAB PO SCH (22:36)
[2023-03-19] MEDS: RAMELTEON 8 MG TAB (ROZEREM) PO PRN (23:19)
[2023-03-19 23:46] VITALS: BP 144/64; TEMP 97.3; O2SAT 91
[2023-03-20] MEDS: IPRATROPIUM 0.5MG/ALBUTEROL 2.5MG INH SOL UD 3ML (DUONEB) NEB SCH ×5 (03:17→20:47)
[2023-03-20 04:11] VITALS: BP 145/64; TEMP 97.4; O2SAT 92
[2023-03-20] MEDS ORDERED: CEFEPIME HCL 2 GM in D5W MINI-BAG PLUS 50 ML IV SCH (05:00)
[2023-03-20 05:54] LABS: BASO % 0.1 % (0.0-1.0); HEMATOCRIT 30.3 % (36.0-47.0); HEMOGLOBIN 9.4 g/dl (12.0-15.5); LYMPH # 0.7 10^3/uL (1.5-5.0); LYMPH % 5.5 % (24.0-44.0); MEAN CORPUSCULAR HEMOGLOBIN 26.8 pg (27.0-33.0); MEAN CORPUSCULAR VOLUME 86.3 fl (80.0-96.0); MONO # 0.1 10^3/uL (0.0-0.8); MONO % 1.2 % (2.0-8.0); NEUTROPHILS % 92.6 % (36.0-66.0); PLATELET COUNT, AUTOMATED 199 10^3/uL (150-450); RED BLOOD COUNT 3.51 10^6/uL (4.00-5.40); WHITE BLOOD COUNT 11.9 10^3/uL (4.0-10.0)
[2023-03-20] MEDS: guaiFENesin SYRUP 200MG 10ML UDC PO SCH ×3 (06:00→17:16)
[2023-03-20 06:07] LABS: BLOOD UREA NITROGEN 30 MG/DL (9-23); CALCIUM LEVEL 8.1 MG/DL (8.3-10.6); CARBON DIOXIDE LEVEL 23 MMOL/L (20-31); CHLORIDE LEVEL 98 MMOL/L (98-107); GLOMERULAR FILTRATION RATE > 60.0 (>32); GLUCOSE, FASTING 169 MG/DL (74-106); PHOSPHORUS LEVEL 4.5 MG/DL (2.4-5.1); POTASSIUM SERUM 4.2 MMOL/L (3.5-5.1); SODIUM LEVEL 131 MMOL/L (136-145)
[2023-03-20] MEDS: methylPREDNISolone 40MG 1ML VIAL IV SCH ×2 (06:38→17:12)
[2023-03-20 08:00] VITALS: BP 135/63; TEMP 96.1; O2SAT 93
[2023-03-20] MEDS: ADVAIR HFA 230/21MCG INHALER INH SCH ×2 (08:32→20:47)
[2023-03-20] MEDS ORDERED: FUROSEMIDE 40MG/4ML VIAL IV SCH (09:00)
[2023-03-20] MEDS ORDERED: LOSARTAN 50MG TABLET PO SCH (09:00)
[2023-03-20] MEDS ORDERED: SPIRONOLACTONE 12.5MG PER 1/2 TABLET PO SCH (09:00)
[2023-03-20] MEDS: VITAMIN D 1,000 INTERNATIONAL UNITS TABLET PO SCH (09:19)
[2023-03-20] MEDS: FERROUS GLUCONATE 324 MG TAB PO SCH ×2 (09:19→20:59)
[2023-03-20] MEDS: DOXYCYCLINE HYCLATE 100MG TABLET PO SCH (09:19)
[2023-03-20] MEDS: DIGOXIN 0.125 MG TAB PO SCH (09:19)
[2023-03-20] MEDS: CYANOCOBALAMIN 500 MCG TAB PO SCH (09:19)
[2023-03-20] MEDS: APIXABAN 2.5 MG TAB (ELIQUIS) PO SCH ×2 (09:19→20:59)
[2023-03-20] MEDS: PRAVASTATIN 20 MG TAB PO SCH (09:20)
[2023-03-20] MEDS: FUROSEMIDE 20 MG TAB PO SCH (09:21)
[2023-03-20 11:58] VITALS: BP 152/65; TEMP 98; O2SAT 91
[2023-03-20 17:30] VITALS: BP 150/55; TEMP 97.5; O2SAT 92
[2023-03-20] MEDS ORDERED: FUROSEMIDE 20MG/2ML VIAL IV ONE (17:50)
[2023-03-20] MEDS ORDERED: LevoFLOXacin 750 MG TABLET PO SCH (18:00)
[2023-03-20] MEDS: MONTELUKAST 10 MG TAB PO SCH (20:59)
[2023-03-20] MEDS: MESALAMINE 400 MG CAPSULE DELAYED RELEASE (DELZICOL) PO SCH (20:59)
[2023-03-21] MEDS: IPRATROPIUM 0.5MG/ALBUTEROL 2.5MG INH SOL UD 3ML (DUONEB) NEB SCH ×3 (00:12→07:49)
[2023-03-21] MEDS: RAMELTEON 8 MG TAB (ROZEREM) PO PRN (00:55)
[2023-03-21 02:00] VITALS: BP 142/56; TEMP 97.9; O2SAT 93
[2023-03-21] MEDS: guaiFENesin SYRUP 200MG 10ML UDC PO SCH ×2 (05:26)
[2023-03-21] MEDS: methylPREDNISolone 40MG 1ML VIAL IV SCH (05:26)
[2023-03-21 05:58] LABS: BASO % 0.1 % (0.0-1.0); HEMATOCRIT 29.1 % (36.0-47.0); HEMOGLOBIN 9.9 g/dl (12.0-15.5); LYMPH # 0.9 10^3/uL (1.5-5.0); LYMPH % 6.7 % (24.0-44.0); MEAN CORPUSCULAR HEMOGLOBIN 28.7 pg (27.0-33.0); MEAN CORPUSCULAR VOLUME 84.3 fl (80.0-96.0); MONO # 0.6 10^3/uL (0.0-0.8); MONO % 4.7 % (2.0-8.0); NEUTROPHILS # 11.1 10^3/uL (1.5-8.5); NEUTROPHILS % 87.9 % (36.0-66.0); PLATELET COUNT, AUTOMATED 241 10^3/uL (150-450); RED BLOOD COUNT 3.45 10^6/uL (4.00-5.40); WHITE BLOOD COUNT 12.7 10^3/uL (4.0-10.0)
[2023-03-21 06:00] VITALS: BP 131/49; TEMP 98.1; O2SAT 95
[2023-03-21] MEDS ORDERED: LevoFLOXacin 750 MG TABLET PO SCH (06:00)
[2023-03-21 06:29] LABS: BLOOD UREA NITROGEN 35 MG/DL (9-23); CALCIUM LEVEL 9.1 MG/DL (8.3-10.6); CARBON DIOXIDE LEVEL 25 MMOL/L (20-31); CHLORIDE LEVEL 101 MMOL/L (98-107); CREATININE FOR GFR 0.86 MG/DL (0.55-1.30); GLOMERULAR FILTRATION RATE > 60.0 (>32); GLUCOSE, FASTING 136 MG/DL (74-106); MAGNESIUM LEVEL 2.2 MG/DL (1.8-2.4); POTASSIUM SERUM 5.1 MMOL/L (3.5-5.1); SODIUM LEVEL 134 MMOL/L (136-145)
[2023-03-21] MEDS: ADVAIR HFA 230/21MCG INHALER INH SCH (07:49)
[2023-03-21] MEDS ORDERED: LEVO1TAB40 PO (08:43)
[2023-03-21] MEDS ORDERED: AMLO1TAB24 PO (08:43)
[2023-03-21] MEDS ORDERED: PRED10TA2 PO (08:43)
[2023-03-21] MEDS ORDERED: amLODIPine 5 MG TAB PO SCH (09:00)
[2023-03-21] MEDS: VITAMIN D 1,000 INTERNATIONAL UNITS TABLET PO SCH (09:02)
[2023-03-21] MEDS: CYANOCOBALAMIN 500 MCG TAB PO SCH (09:02)
[2023-03-21] MEDS: FERROUS GLUCONATE 324 MG TAB PO SCH (09:02)
[2023-03-21] MEDS: APIXABAN 2.5 MG TAB (ELIQUIS) PO SCH (09:02)
[2023-03-21] MEDS: PRAVASTATIN 20 MG TAB PO SCH (09:02)
[2023-03-21 09:04] VITALS: BP 152/58
[2023-03-21] MEDS: DIGOXIN 0.125 MG TAB PO SCH (09:04)
[2023-03-21] MEDS: FUROSEMIDE 20 MG TAB PO SCH (09:04)
[2023-03-21 10:00] VITALS: BP 143/63; TEMP 97.5; O2SAT 92
[2023-03-21] MEDS ORDERED: PRED20TA PO (11:47)
[2023-03-21] MEDS ORDERED: METO25TA PO (11:47)
[2023-03-21] MEDS ORDERED: predniSONE 20 MG TAB PO SCH (12:00)
[2023-03-23] MEDS ORDERED: VENTAER INH (13:57)
[2023-03-23] MEDS ORDERED: CLOB0.0548 TOP (13:57)
[2023-03-23] MEDS ORDERED: MUCI600T31 PO (13:57)
[2023-03-23] MEDS ORDERED: MELA5TAB47 PO (13:57)
== END 2023-03-21 11:51 | disposition home health service (06) | DRG 193 ==
LOC: M ED 15:18 → M ED INP 17:50 → ENRESERV 19:53 → M PCU 21:30 → M MSPAV 03-20 17:29
PROVIDERS: ADMIT Internal Medicine; ATTEND Internal Medicine
DX: J18.9 Pneumonia, unspecified organism (principal); I50.33 Acute on chronic diastolic (congestive) heart failure; J44.0 Chronic obstructive pulmonary disease with (acute) lower respiratory infection; K51.90 Ulcerative colitis, unspecified, without complications; J44.1 Chronic obstructive pulmonary disease with (acute) exacerbation; I13.0 Hypertensive heart and chronic kidney disease with heart failure and stage 1 through stage 4 chronic kidney disease, or unspecified chronic kidney disease; J45.901 Unspecified asthma with (acute) exacerbation; J98.11 Atelectasis; I27.20 Pulmonary hypertension, unspecified; I48.91 Unspecified atrial fibrillation; I27.81 Cor pulmonale (chronic); I08.3 Combined rheumatic disorders of mitral, aortic and tricuspid valves; N18.30 Chronic kidney disease, stage 3 unspecified; E78.5 Hyperlipidemia, unspecified; G47.33 Obstructive sleep apnea (adult) (pediatric); D64.9 Anemia, unspecified; Z90.79 Acquired absence of other genital organ(s); Z85.038 Personal history of other malignant neoplasm of large intestine; Z79.2 Long term (current) use of antibiotics; Z79.899 Other long term (current) drug therapy; Z20.822 Contact with and (suspected) exposure to COVID-19

== ENCOUNTER → 2023-05-18 | Outpatient (CLI) | payer MEDICARE ==
[~2023-05-18] MED LIST changes: +AMLO1TAB24 PO; +CLOB0.0548 TOP; +ELIQ2.5T PO; +LEVO1TAB40 PO; +MELA5TAB47 PO; +METO25TA PO; +PRED10TA2 PO; +VENTAER INH
== END ==
LOC: M PLAIMG 12:59
PROVIDERS: ATTEND Nurse Practitioner Adult Health
DX: R91.8 Other nonspecific abnormal finding of lung field (principal)

== ENCOUNTER → 2023-12-05 | Outpatient (CLI) | payer MEDICARE ==
[~2023-12-05] MED LIST changes: +DONE5TAB82 PO; -MIRA1POW3 PO; +MIRA33506 PO
== END ==
LOC: M WUC 14:08
PROVIDERS: ATTEND Nurse Practitioner Adult Health
DX: R05.9 Cough, unspecified (principal)

== ENCOUNTER → 2024-02-13 | Outpatient (REF) | payer MEDICARE ==
[~2024-02-13] MED LIST changes: -POTA10CA60; +POTA10CA70
== END ==
LOC: M LAB REF 18:27
PROVIDERS: ATTEND Nurse Practitioner Adult Health
DX: N18.31 Chronic kidney disease, stage 3a (principal); D50.9 Iron deficiency anemia, unspecified

== ENCOUNTER → 2024-03-22 | Outpatient (CLI) | payer MEDICARE | LOC: M WUC 13:38 | PROVIDERS: ATTEND Physician Assistant | DX: M25.531 Pain in right wrist (principal) ==